=== PATIENT | female | born 1975 | race Caucasian/White ===

== ENCOUNTER → 2020-07-16 08:17 | Outpatient (BNVA) | payer OTHER, SELFPAY | PROVIDERS: PCP Internal Medicine; Referring Provider Internal Medicine; Visit Provider Dietitian, Registered | DX: Z76.89 Persons encountering health services in other specified circumstances (principal) ==

== ENCOUNTER → 2020-08-03 09:11 | Outpatient (BNVA) | payer OTHER, SELFPAY | PROVIDERS: PCP Internal Medicine; Visit Provider Dietitian, Registered | DX: Z76.89 Persons encountering health services in other specified circumstances (principal) ==

== ENCOUNTER → 2020-08-30 07:39 | Outpatient (BNVA) | payer OTHER, SELFPAY | PROVIDERS: Visit Provider Physician Assistant | DX: E66.01 Morbid (severe) obesity due to excess calories (principal); Z68.43 Body mass index [BMI] 50.0-59.9, adult | CPT/HCPCS: 99212 ==

== ENCOUNTER → 2020-09-29 08:11 | Outpatient (BNVA) | payer OTHER, SELFPAY | PROVIDERS: Visit Provider Dietitian, Registered | DX: Z76.89 Persons encountering health services in other specified circumstances (principal) ==

== ENCOUNTER → 2020-10-26 08:14 | Outpatient (BNVA) | payer OTHER, SELFPAY | PROVIDERS: Visit Provider Physician Assistant ==

== ENCOUNTER → 2023-03-30 13:41 | Outpatient (BNVA) | payer OTHER, SELFPAY | PROVIDERS: PCP Internal Medicine; Visit Provider Internal Medicine Endocrinology, Diabetes & Metabolism | DX: E11.65 Type 2 diabetes mellitus with hyperglycemia (principal); E11.40 Type 2 diabetes mellitus with diabetic neuropathy, unspecified; E78.5 Hyperlipidemia, unspecified; E66.01 Morbid (severe) obesity due to excess calories; Z83.3 Family history of diabetes mellitus; Z68.42 Body mass index [BMI] 45.0-49.9, adult; Z79.4 Long term (current) use of insulin; Z79.899 Other long term (current) drug therapy | CPT/HCPCS: 82947; 83036; 99202 ==

== ENCOUNTER 2023-04-30 13:41 | Outpatient (AMB) | payer OTHER, SELFPAY ==
--- NOTE | 2023-04-30 14:43 | A.OFFVIS_ITS ---
Intake Intake Visit Reasons: Type 2 DM Proration Clerk Required: Yes Proration Clerk Language: It Intern Name: Kayla [facility] [place] by: Self / Same As Patient Allergies dulaglutide [From Trulicity] Adverse Reaction (Unknown, Verified 03/30/23 13:53) Itching insulin lispro [From Humalog U-100 Insulin] Adverse Reaction (Unknown, Verified 03/30/23 13:53) Rash Aspirin Allergy (Unknown, Uncoded 03/30/23 13:53) swelling Latex Allergy (Unknown, Uncoded 03/30/23 13:53) rash Metformin Allergy (Unknown, Uncoded 03/30/23 13:53) stomach upset Penicillin Allergy (Unknown, Uncoded 03/30/23 13:53) swelling HPI Comprehensive Diabetes Asmnt Most Recent Diabetes Results: No Data to Display [facility] Medical History (Updated 03/30/23 @ 13:57 by Irvin Sanchez MD) Asthma History of deviated nasal septum Morbid obesity Neuropathy FLORENCIA (obstructive sleep apnea) Right sciatic nerve pain Type 2 diabetes mellitus Uncontrolled type 2 diabetes mellitus with hyperglycemia Surgical History Hx of section Family History Father Multiple sclerosis Mother Diabetes mellitus Sister Lupus Brother No problems noted. Daughter No problems noted. Social History Alcohol intake: never Assessment & Plan Assessment & Plan (1) Uncontrolled type 2 diabetes mellitus with hyperglycemia: Code(s): E11.65 - Type 2 diabetes mellitus with hyperglycemia Plan: Learning objectives: The patient was provided with verbal and written education on the following topics as outlined below. The patient met all learning objectives and was able to verbalize understanding and provide teach back of education topics discussed . The patient was provided with the opportunity to ask questions and all questions were answered. Patient Assessment Assess patient education level/literacy/barriers Patient questions/concerns, patient reports glucose has been running high but did not bring Dexcom screw machine operator single spindle for download. Her patient was on GameLogictronic 630 G insulin pump until visit with Dr. Sanchez. At that visit Dr. Sanchez stopped insulin pump in started patient on basal bolus insulin. Reviewed patient's pump download from visit with Dr. Sanchez. Patient using fixed dose for meals not Bolus wizard. Patient does not carb count. She is currently taking Lantus 30 units daily with NovoLog sliding scale She is also started on Ozempic 0.25 mg, patient complains of slight nausea and mild swelling in her right hand in foot. States that she will continue Ozempic if she has seen an improvement in glucose levels since starting medication. Instructed patient if she should develop swelling of hands or tongue and shortness of breath to contact provider or go to ED What is Diabetes? Pathophysiology How the body produces and uses insulin Identify type of DM Risk factors Signs of Diabetes Brief overview of Diabetes Management Monitoring blood sugar Following a meal plan Regular exercise Maintaining a healthy weight Taking medication as needed Members of the care team (PCP, RN, MA, RD, CDE, inverted block operator) Blood glucose monitoring When/how often to test Target blood sugar ranges Patient is using Dexcom G7 screw machine operator single spindle but did not bring to today's visit Introduction to Nutrition Importance of healthy diet in managing DM Diet is personalized to individual preference Review patient?s regular diet/food preferences Who prepares meals/does food shopping/ Dining out?/ Barriers? How diet effects glucose Eating 3 balanced meals a day with small, healthy snacks between meals Review food groups Carbohydrates: What is a carbohydrate/Which food/food groups are considered carbohydrates Effect of carbohydrates on blood glucose Portion sizes Reading food labels Basic carb counting (if applicable per nursing assessment) Plate method Meal planning Recommendations: Follow plate method, consistent carbs and read nutritional labels. Smart Goal: Extend dog walk from half a block to full 3 times a day Educational Materials: The patient was provided with the following written educational materials: Planning Healthy Meals Handout Patient Response to instructions: Comprehension of Instructions: Fair Readiness to make changes: Contemplation How confident they feel about making changes: fair Coding Level of Care Code Est Pt Level 1 (61319) Diagnoses Uncontrolled type 2 diabetes mellitus with hyperglycemia E11.65
== END 2023-04-30 15:02 | disposition home or self-care (01) ==
PROVIDERS: PCP Internal Medicine; Visit Provider Registered Nurse Diabetes Educator
DX: E11.65 Type 2 diabetes mellitus with hyperglycemia (principal)

== ENCOUNTER → 2023-04-30 13:41 | Outpatient (BNVA) | payer OTHER, SELFPAY | PROVIDERS: PCP Internal Medicine; Visit Provider Registered Nurse Diabetes Educator | DX: E11.65 Type 2 diabetes mellitus with hyperglycemia (principal); E11.40 Type 2 diabetes mellitus with diabetic neuropathy, unspecified | CPT/HCPCS: 99211 ==

== ENCOUNTER 2023-05-10 13:17 | Outpatient (AMB) | payer OTHER, SELFPAY ==
[2023-05-10 13:51] VITALS: BMI 48.0
--- NOTE | 2023-05-10 13:51 | A.OFFVIS_ITS ---
Intake VS Expanded 05/10/23 13:51 05/17/23 11:29 Height 5 ft 1.8 in 5 ft 2 in Weight 260 lb 9.382 oz 261 lb BMI 48.0 47.7 Intake Visit Reasons: Type 2 DM Allergies dulaglutide [From Trulicity] Adverse Reaction (Unknown, Verified 03/30/23 13:53) Itching insulin lispro [From Humalog U-100 Insulin] Adverse Reaction (Unknown, Verified 03/30/23 13:53) Rash Aspirin Allergy (Unknown, Uncoded 03/30/23 13:53) swelling Latex Allergy (Unknown, Uncoded 03/30/23 13:53) rash Metformin Allergy (Unknown, Uncoded 03/30/23 13:53) stomach upset Penicillin Allergy (Unknown, Uncoded 03/30/23 13:53) swelling HPI Nutrition Presentation Details Pt presents for MNT for T2DM. Pt was referred by Dr. Sanchez, metal building assembler. Pt reports having hx of anemia crystal light Pt reports having 3 meals a day and working on balancing meals following healthy plate method or having protein rich foods and reducing portion of carbohydrates. Reports challenges with portions at night time typical meal: B:4-5 oz of prot (eggs/cheese/deli meat) and 1 slice wheat or white bread, cup of almond milk or water L/D: rice/chicken /salad or beef/potato and green beans, water snack: cracker,/ rice/ , cereal/ pastries physical activity: daily life activities ETOH/SMoking: denies fruits/d: 0-2 vegetables: 3-4 servings starches > 15 prot: 10-12 oz/d dairy: 4 serving/d fried foods : 0-1/d pastries:daily fluids: water, almond milk, diet beverages: 45-60 oz/d PJH-Zispfze-Et.Jeor Equation Height 5 ft 2 in Weight 261 lb Resting Metabolic Rate 1774.70 Calculated Activity Level Sedentary Calories Needed to Maintain Weight 2129.64 Diagnosis Nutrition problem #1 inadequate energy intake As related to (etiology) #1 diagnosis As evidenced by (sign/symptom) #1 abnormal lab values ( A1c at 12.2% on 03/2023) and high BMI (48.0 bmi on 05/10/23) Monitoring/Goals Nutrition problem monitoring total energy intake, glucose, fasting, total CHO intake and weight Nutrition goal/outcome list 3 CHO foods and wt loss 5lbs in 2 months Learning/Education Readiness to learn good Stages of change preparation Educational materials provided Yes (meal planning ) Most Recent Diabetes Results: No Data to Display [facility] Medical History (Updated 03/30/23 @ 13:57 by Irvin Sanchez MD) Asthma History of deviated nasal septum Morbid obesity Neuropathy FLORENCIA (obstructive sleep apnea) Right sciatic nerve pain Type 2 diabetes mellitus Uncontrolled type 2 diabetes mellitus with hyperglycemia Surgical History Hx of section Family History Father Multiple sclerosis Mother Diabetes mellitus Sister Lupus Brother No problems noted. Daughter No problems noted. Social History Alcohol intake: never Assessment & Plan Assessment & Plan (1) Uncontrolled type 2 diabetes mellitus with hyperglycemia: Code(s): E11.65 - Type 2 diabetes mellitus with hyperglycemia Plan: wt: 119 kg Est kcal needs as per MSJ: 2100 (40% carb, 30% protein/fat) Est fluid needs as per 25-30 ml/d: 2800- 3600 Est prot per day as per 1 g/kg bw: 119 Recommend fiber intake : 8-10 g per day and gradually increase to 25-28 g per day for women and 35-38 g for men or as tolerated Recommend sodium intake per day : less than 2000 mg Educated patient on: ( R = reviewed V = verbalizes understanding N/R = needs review N/A = not applicable * Food sources of carbohydrate, adequate serving sizes and its role in various health conditions: R * Differences between complex carbohydrates a simple carbohydrates, role of fiber in diet: R * Differences between types of fats and role in diet (mono on saturated fat fatty acids, saturated fatty acids, trans fats): R * Food sources of sodium in salt and healthy modifications for heart health in kidney health: R * Vitamins and minerals: R * Healthy plate method concept: R * Physical activity: Benefits a precaution: R * Hypoglycemia protocol (rule of 15): R * Dietary prevention of Hyperglycemia: R (2) Morbid obesity: Code(s): E66.01 - Morbid (severe) obesity due to excess calories Patient Instructions: Practice mindful eating strategies Reduce calories as bedtime snack to less than 200 calories and less than 20 g of carbs- see snack choices Coding Level of Care Code Nutr Indiv Intake (00508) Diagnoses Uncontrolled type 2 diabetes mellitus with hyperglycemia E11.65 Morbid obesity E66.01 Time Spent (min) 30
[2023-05-17 11:29] VITALS: BMI 47.7
== END 2023-05-10 14:36 | disposition home or self-care (01) ==
PROVIDERS: PCP Internal Medicine; Visit Provider Dietitian, Registered
DX: E11.65 Type 2 diabetes mellitus with hyperglycemia (principal); E66.01 Morbid (severe) obesity due to excess calories

== ENCOUNTER → 2023-05-10 13:17 | Outpatient (BNVA) | payer OTHER, SELFPAY | PROVIDERS: PCP Internal Medicine; Visit Provider Dietitian, Registered | DX: E11.65 Type 2 diabetes mellitus with hyperglycemia (principal); E66.01 Morbid (severe) obesity due to excess calories; Z68.42 Body mass index [BMI] 45.0-49.9, adult; Z71.3 Dietary counseling and surveillance | CPT/HCPCS: 97802 ==

== ENCOUNTER 2023-05-25 14:26 | Outpatient (AMB) | payer OTHER, SELFPAY ==
[2023-05-25 14:28] VITALS: BP 114/72; PULSE 85; BMI 48.2
--- NOTE | 2023-05-25 14:28 | A.OFFVIS_ITS ---
Intake Vital Signs 05/25/23 14:28 Height 5 ft 2 in Weight 263 lb 7.238 oz BMI 48.2 BP 114/72 Blood Pressure Location Lt brachial Position Sitting Pulse 85 Pulse Source Pulse Oximeter Intake Visit Reasons: DM Intake Note: Patient presents today to follow up on Type 2 Diabetes Mellitus. Patient receives DME supplies through: Last Diabetic Eye exam: August 2022 Last Podiatry Visit: None Random Glucose: 260 mg/dl HgA1C: 12.2% 03/30/23 Surface Plate Inspector Required: Yes Surface Plate Inspector Language: Occupational Rehabilitation Aide Name: Kayla medical staff Information Interpreted: non-clinical & clinical Accompanied by: Self / Same As Patient Allergies dulaglutide [From Trulicity] Adverse Reaction (Unknown, Verified 05/25/23 14:34) Itching insulin lispro [From Humalog U-100 Insulin] Adverse Reaction (Unknown, Verified 05/25/23 14:34) Rash Aspirin Allergy (Unknown, Uncoded 03/30/23 13:53) swelling Latex Allergy (Unknown, Uncoded 03/30/23 13:53) rash Metformin Allergy (Unknown, Uncoded 03/30/23 13:53) stomach upset Penicillin Allergy (Unknown, Uncoded 03/30/23 13:53) swelling Medication List - Last Reconciled 05/25/23 by Irvin Sanchez MD atorvastatin 20 mg PO DAILY blood sugar diagnostic (Contour Next Test Strips) As directed blood-glucose meter (Contour Next Meter) As directed blood-glucose sensor (Dexcom G7 Sensor device) As directed change every 10 days ferrous sulfate (FeroSul) 325 mg PO DAILY gabapentin 600 mg PO BEDTIME insulin aspart U-100 (Novolog U-100 Insulin aspart) 1 sliding scale dose subcut USEASDIRECTD insulin aspart U-100 (Novolog FlexPen U-100 Insulin aspart) 10 units (0.1 mL) subcut TID insulin glargine (Lantus Solostar U-100 Insulin) 30 units (0.3 mL) subcut DAILY lisinopril 10 mg PO DAILY loratadine (Allergy Relief (loratadine)) 10 mg PO DAILY paroxetine HCl 30 mg PO DAILY pen needle, diabetic (Comfort EZ Pen [place]) As directed injects 4 X/day semaglutide (Ozempic) 0.5 mg (0.736 mL) subcut QWEEK HPI HPI Comments History of Present Illness Details 47 YO F who is seen in consultation for T2DM at the request of PCP. Initially diagnosed with T2DM in 17 yrs . Not seen endo before Was initially started on treatment with metformin .Stopped because of GI upset Current regimen Ozempic 0.5 mg Qwkly stopped because of hand and foot pain Lantus 30 units Novolog 10 units TID Dexcom download shows average glucose to be 330. This sensors be worn 50% of the time. Standing PA shins 47. Less than 1% range with 99% hyperglycemia and no hypoglycemia . Family history of T2DM in mother, grandfather Type 2 DM . Has eyes checked yearly, last eye exam 08/2022 , Has retinopathy. Has neuropathy, ], not sees podiatry. Denies nephropathy, on DEMETRIUS/ARB. . Has HLD, on statin. Denies CAD. Had diabetes education. [facility] Medical History (Updated 03/30/23 @ 13:57 by Irvin Sanchez MD) Asthma History of deviated nasal septum Morbid obesity Neuropathy FLORENCIA (obstructive sleep apnea) Right sciatic nerve pain Type 2 diabetes mellitus Uncontrolled type 2 diabetes mellitus with hyperglycemia Surgical History Hx of section Family History Father Multiple sclerosis Mother Diabetes mellitus Sister Lupus Brother No problems noted. Daughter No problems noted. Social History Alcohol intake: never Physical Exam Vital Signs: Last Vital Signs Pulse 85 05/25/23 14:28 BP 114/72 05/25/23 14:28 BMI result Body Mass Index 48.2 Absence of Cushingoid features. Presence of acromegalic features. Neck exam reveals nl size thyroid about 15 gms. No thyroid nodules palpable. No carotid bruits present. Lungs CTA. Heart S1 S2, Reg R/R. No M/R/ G. Skin exam reveals absence of vitiligo or acanthosis nigricans. Abdominal exam reveals Soft NT/ND with NA BS. No organomegaly present. Neck Other: . Extrem Other: Visual exam of foot performed. No ulcerations or open lesions. No onchomycosis, no callouses.Pulses 2 + distally Sensation intact to monofilament exam. 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 Plan is to increase Lantus to 40 units and by 10 units every 3 4 days to get fas ting point care <150. Will also start Mounjaro 2.5 mg Q weekly and titrate as tolerated. Patient has already been intolerable to Trulicity and Ozempic. l . Will check microalbumin to creatinine ratio. Went over with patient extensively the relationship poor glycemic control to development and progression of complications Mounjaro 2.5 mg samples given to patient lot number [id number] C expiration date 10/04/2024 Coding Level of Care Code Est Pt Level 4 (55581) Diagnoses Uncontrolled type 2 diabetes mellitus with hyperglycemia E11.65
[2023-05-25 14:43] LABS: Glucose, Whole Blood 260 mg/dL (60-115)
== END 2023-05-25 16:09 | disposition home or self-care (01) ==
PROVIDERS: PCP Internal Medicine; Visit Provider Internal Medicine Endocrinology, Diabetes & Metabolism
DX: E11.65 Type 2 diabetes mellitus with hyperglycemia (principal)
CPT/HCPCS: 99214

== ENCOUNTER → 2023-05-25 14:26 | Outpatient (BNVA) | payer OTHER, SELFPAY | PROVIDERS: PCP Internal Medicine; Visit Provider Internal Medicine Endocrinology, Diabetes & Metabolism | DX: E11.65 Type 2 diabetes mellitus with hyperglycemia (principal); E78.5 Hyperlipidemia, unspecified; Z83.3 Family history of diabetes mellitus; Z79.4 Long term (current) use of insulin; Z79.899 Other long term (current) drug therapy | CPT/HCPCS: 82947; 99212 ==

== ENCOUNTER → 2023-05-31 12:07 | Outpatient (BNVA) | payer OTHER, SELFPAY | PROVIDERS: PCP Internal Medicine; Visit Provider Registered Nurse Diabetes Educator | DX: E11.65 Type 2 diabetes mellitus with hyperglycemia (principal); Z79.4 Long term (current) use of insulin | CPT/HCPCS: 99211 ==

== ENCOUNTER 2023-05-31 13:17 | Outpatient (AMB) | payer OTHER, SELFPAY ==
--- NOTE | 2023-05-31 13:56 | MHC.AMDMED ---
Intake Intake Visit Reasons: DM Allergies dulaglutide [From Trulicity] Adverse Reaction (Unknown, Verified 05/25/23 14:34) Itching insulin lispro [From Humalog U-100 Insulin] Adverse Reaction (Unknown, Verified 05/25/23 14:34) Rash Aspirin Allergy (Unknown, Uncoded 03/30/23 13:53) swelling Latex Allergy (Unknown, Uncoded 03/30/23 13:53) rash Metformin Allergy (Unknown, Uncoded 03/30/23 13:53) stomach upset Penicillin Allergy (Unknown, Uncoded 03/30/23 13:53) swelling HPI Comprehensive Diabetes Asmnt Most Recent Diabetes Results: No Data to Display [facility] Medical History (Updated 03/30/23 @ 13:57 by Irvin Sanchez MD) Asthma History of deviated nasal septum Morbid obesity Neuropathy FLORENCIA (obstructive sleep apnea) Right sciatic nerve pain Type 2 diabetes mellitus Uncontrolled type 2 diabetes mellitus with hyperglycemia Surgical History Hx of section Family History Father Multiple sclerosis Mother Diabetes mellitus Sister Lupus Brother No problems noted. Daughter No problems noted. Social History Alcohol intake: never Assessment & Plan Assessment & Plan (1) Uncontrolled type 2 diabetes mellitus with hyperglycemia: Code(s): E11.65 - Type 2 diabetes mellitus with hyperglycemia Plan: Personal Continuous Glucose Monitor: Patients CGM information reviewed Reviewed patient's sensor data: Hypoglycemia: ? 0% Hyperglycemia:? 93% Time in Range:? 7% Average glucose for the last 2 weeks? 266 mg/dL Patient has transitioned from 630 G insulin pump to basal bolus and Mounhaoro Patient's glucose levels have been running above target for the past [address] Sanchez increase in Lantus to match basal rate from 670 G insulin pump of [address] Sanchez agreed to increase Lantus to 50 units daily He patient is also interested in resuming insulin pump therapy. At next visit will discuss different insulin pump options integrated with CGM Reviewed how to interpret trend arrows Reminded patient that to check finger sticks if symptoms do not match sensor reading. Discussed lag time between finger stick and sensor data.? Patient able to insert sensor independently at home without issue.? Medications: New semaglutide 1 mg (0.75 mL) subcut QWEEK 3 mL 4RF Changed From insulin aspart U-100 (Novolog FlexPen U-100 Insulin aspart) 10 units (0.1 mL) subcut TID 30 mL 5RF To insulin aspart U-100 (Novolog FlexPen U-100 Insulin aspart) 50 units (0.5 mL) subcut DAILY 45 mL 5RF Discontinued semaglutide (Ozempic) for 4 weeks Discontinued Reason: Doctor's Order 0.5 mg (0.736 mL) subcut QWEEK 3 mL 5RF Patient Instructions: Seg?n el Dr. Sanchez Aumente Lantus 30 unidades a Lantus 50 unidades Seguimiento con enfermera de educaci?n sobre diabetes en un mes. Coding Level of Care Code Est Pt Level 1 (96849) Diagnoses Uncontrolled type 2 diabetes mellitus with hyperglycemia E11.65
== END 2023-05-31 14:01 | disposition home or self-care (01) ==
PROVIDERS: PCP Internal Medicine; Visit Provider Registered Nurse Diabetes Educator
DX: E11.65 Type 2 diabetes mellitus with hyperglycemia (principal)

== ENCOUNTER 2023-06-19 13:43 | Outpatient (AMB) | payer OTHER, SELFPAY ==
[2023-06-19 14:23] VITALS: BMI 48.2
--- NOTE | 2023-06-19 14:23 | A.OFFVIS_ITS ---
Intake VS Expanded 06/19/23 14:23 Height 5 ft 2 in Weight 263 lb 7.238 oz BMI 48.2 Intake Visit Reasons: t2dm/Confirmed Allergies dulaglutide [From Trulicity] Adverse Reaction (Unknown, Verified 05/25/23 14:34) Itching insulin lispro [From Humalog U-100 Insulin] Adverse Reaction (Unknown, Verified 05/25/23 14:34) Rash Aspirin Allergy (Unknown, Uncoded 03/30/23 13:53) swelling Latex Allergy (Unknown, Uncoded 03/30/23 13:53) rash Metformin Allergy (Unknown, Uncoded 03/30/23 13:53) stomach upset Penicillin Allergy (Unknown, Uncoded 03/30/23 13:53) swelling HPI Nutrition Presentation Details Pt presents for MNT f/u for T2DM Pt reports understanding relationship of carbs to blood glucose level Pt complains of lack of satiety, reports choosing higher fat foods to help with satiety,n ot counting carbohydrates Pt is working with dredge hand and community nutrition educator for DM med management. physical activity:sedentary ETOH: denies reading food labels: looking at protein only Most Recent Diabetes Results: No Data to Display [facility] Medical History (Updated 03/30/23 @ 13:57 by Irvin Sanchez MD) Uncontrolled type 2 diabetes mellitus with hyperglycemia Neuropathy Right sciatic nerve pain FLORENCIA (obstructive sleep apnea) Asthma Type 2 diabetes mellitus Morbid obesity History of deviated nasal septum Surgical History Hx of section Family History Father Multiple sclerosis Mother Diabetes mellitus Sister Lupus Brother No problems noted. Daughter No problems noted. Social History Alcohol intake: never Assessment & Plan Assessment & Plan (1) Uncontrolled type 2 diabetes mellitus with hyperglycemia: Code(s): E11.65 - Type 2 diabetes mellitus with hyperglycemia Plan: wt: 119 kg Est kcal needs as per MSJ: 2100 (40% carb, 30% protein/fat) Est fluid needs as per 25-30 ml/d: 2800- 3600 Est prot per day as per 1 g/kg bw: 119 Recommend fiber intake : 8-10 g per day and gradually increase to 25-28 g per day for women and 35-38 g for men or as tolerated Recommend sodium intake per day : less than 2000 mg Educated patient on: ( R = reviewed V = verbalizes understanding N/R = needs review N/A = not applicable * Food sources of carbohydrate, adequate serving sizes and its role in various health conditions: R * Differences between complex carbohydrates a simple carbohydrates, role of fiber in diet: R * Differences between types of fats and role in diet (mono on saturated fat fatty acids, saturated fatty acids, trans fats): R * Food sources of sodium in salt and healthy modifications for heart health in kidney health: R * Reading food labels: R (compare calories, protein, carbs) * Vitamins and minerals: R * Healthy plate method concept: R * Physical activity: Benefits a precaution: R * Hypoglycemia protocol (rule of 15): R * Dietary prevention of Hyperglycemia: R (2) Morbid obesity: Code(s): E66.01 - Morbid (severe) obesity due to excess calories Patient Instructions: Keep hydrated by having water, with meals, snacks, try hint water ,see list of ideas to flavor water without adding calories Reduce on portion sizes of high fat foods , high fat intake can lead to insulin resistance Include fiber rich foods to help with satiety incorporate physical activity 10 minutes 3 times a day Coding Level of Care Code Nutr Indiv Subseq (63521) Diagnoses Uncontrolled type 2 diabetes mellitus with hyperglycemia E11.65 Morbid obesity E66.01 Time Spent (min) 30
== END 2023-06-19 15:02 | disposition home or self-care (01) ==
PROVIDERS: PCP Internal Medicine; Visit Provider Dietitian, Registered
DX: E11.65 Type 2 diabetes mellitus with hyperglycemia (principal); E66.01 Morbid (severe) obesity due to excess calories

== ENCOUNTER → 2023-06-19 13:43 | Outpatient (BNVA) | payer OTHER, SELFPAY | PROVIDERS: PCP Internal Medicine; Visit Provider Dietitian, Registered | DX: E11.65 Type 2 diabetes mellitus with hyperglycemia (principal); E11.42 Type 2 diabetes mellitus with diabetic polyneuropathy; E66.01 Morbid (severe) obesity due to excess calories; Z68.42 Body mass index [BMI] 45.0-49.9, adult; Z71.3 Dietary counseling and surveillance | CPT/HCPCS: 97803 ==

== ENCOUNTER 2023-06-27 14:27 | Outpatient (AMB) | payer OTHER, SELFPAY ==
[2023-06-27 14:31] VITALS: BP 102/58; PULSE 83; BMI 48.4
--- NOTE | 2023-06-27 14:31 | MHC.OFFVIS ---
Intake Vital Signs 06/27/23 14:31 Height 5 ft 2 in Weight 264 lb 12.403 oz BMI 48.4 BP 102/58 L Blood Pressure Location Lt brachial Position Sitting Pulse 83 Pulse Source Pulse Oximeter Intake Visit Reasons: f/u Type 2 DM/Confirmed Intake Note: Patient presents today to follow up on Type 2 Diabetes Mellitus. Patient receives DME supplies through: Last Diabetic Eye exam: 08/2023 Last Podiatry Visit: none Random Glucose: 197 mg/dl HgA1C:9.3% Skoog Patching Machine Operator Required: Yes Skoog Patching Machine Operator Language: Victorian Literature Professor Name: Kayla- medical staff Information Interpreted: non-clinical & clinical Accompanied by: Self / Same As Patient Allergies dulaglutide [From Trulicity] Adverse Reaction (Unknown, Verified 06/27/23 14:38) Itching insulin lispro [From Humalog U-100 Insulin] Adverse Reaction (Unknown, Verified 06/27/23 14:38) Rash Aspirin Allergy (Unknown, Uncoded 03/30/23 13:53) swelling Latex Allergy (Unknown, Uncoded 03/30/23 13:53) rash Metformin Allergy (Unknown, Uncoded 03/30/23 13:53) stomach upset Penicillin Allergy (Unknown, Uncoded 03/30/23 13:53) swelling Medication List - Last Reconciled 06/27/23 by Irvin Sanchez MD atorvastatin 20 mg PO DAILY blood sugar diagnostic (Contour Next Test Strips) As directed blood-glucose meter (Contour Next Meter) As directed blood-glucose sensor (Dexcom G7 Sensor device) As directed change every 10 days ferrous sulfate (FeroSul) 325 mg PO DAILY gabapentin 600 mg PO BEDTIME insulin aspart U-100 (Novolog FlexPen U-100 Insulin aspart) 50 units (0.5 mL) subcut DAILY Lantus Solostar U-100 Insulin (insulin glargine) 50 units (0.5 mL) subcut DAILY NS lisinopril 10 mg PO DAILY loratadine (Allergy Relief (loratadine)) 10 mg PO DAILY paroxetine HCl 30 mg PO DAILY pen needle, diabetic (Comfort EZ Pen [place]) As directed injects 4 X/day tirzepatide (Mounjaro) 2.5 mg (0.5 mL) subcut QWEEK 4 weeks HPI HPI Comments History of Present Illness Details 48 YO F who is seen in consultation for T2DM at the request of PCP. Initially diagnosed with T2DM in 17 yrs . Not seen endo before Was initially started on treatment with metformin .Stopped because of GI upset Current regimen Mounjaro 2.5 mg Qwkly Lantus 50 units Novolog 10 units TID Dexcom download shows average glucose to be 225. This sensors be worn 86% of the time. Standard deviation 42. Less than 16% range with 84% hyperglycemia and no hypoglycemia . Rare hypoglycemia Family history of T2DM in mother, grandfather Type 2 DM . Has eyes checked yearly, last eye exam 08/2022 , Has retinopathy. Needs to make appt Has neuropathy, ], not sees podiatry. Denies nephropathy, on DEMETRIUS/ARB. . Has HLD, on statin. Denies CAD. Had diabetes education. [facility] Medical History (Updated 03/30/23 @ 13:57 by Irvin Sanchez MD) Uncontrolled type 2 diabetes mellitus with hyperglycemia Neuropathy Right sciatic nerve pain FLORENCIA (obstructive sleep apnea) Asthma Type 2 diabetes mellitus Morbid obesity History of deviated nasal septum Surgical History Hx of section Family History Father Multiple sclerosis Mother Diabetes mellitus Sister Lupus Brother No problems noted. Daughter No problems noted. Social History Alcohol intake: never Physical Exam Vital Signs: Last Vital Signs Pulse 83 06/27/23 14:31 BP 102/58 L 06/27/23 14:31 BMI result Body Mass Index 48.4 Absence of Cushingoid features. Presence of acromegalic features. Neck exam reveals nl size thyroid about 15 gms. No thyroid nodules palpable. No carotid bruits present. Lungs CTA. Heart S1 S2, Reg R/R. No M/R/ G. Skin exam reveals absence of vitiligo or acanthosis nigricans. Abdominal exam reveals Soft NT/ND with NA BS. No organomegaly present. Neck Other: . Extrem Other: Visual exam of foot performed. No ulcerations or open lesions. No onchomycosis, no callouses.Pulses 2 + distally Sensation intact to monofilament exam. Vibratory sensation sensed is intact with 128 Hz tuning fork Results AMB Hemoglobin A1c AMB Hemoglobin A1c 9.3 % Last Edit by Janey Key on 06/27/23 14:51 Results Reviewed Results Reviewed: 06/27/23 14:41 Glucose, Whole Blood Routine Laboratory Last Values Glucose (Clinic) 197 mg/dL (60-115) H 06/27/23 14:41 Hgb A1c (Clinic) 9.3 % (4.0-6.0) H 06/27/23 14:45 Assessment & Plan Assessment & Plan (1) Uncontrolled type 2 diabetes mellitus with hyperglycemia: Code(s): E11.65 - Type 2 diabetes mellitus with hyperglycemia Plan: This 47-year-old female with a history of type 2 diabetes being treated with Mounjaro and basalinsulin with poor glycemic control and 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 Plan is to ncrease Mounjaro 5 mg Q weekly and titrate as tolerated. . Will check microalbumin to creatinine ratio. . Will also start Jardiance 10 mg and titrate accordingly. Went over side effects with the help of supervisor beet end of Jardiance including but not limited to Raquel's gangrene , dehydration and DKA. If glycemic control as not to after above, we need to increase basal insulin Orders: Orders AMB Hemoglobin A1c Today E11.65 - Type 2 diabetes mellitus with hyperglycemia Basic Metabolic Panel 10 Days E11.65 - Type 2 diabetes mellitus with hyperglycemia Medications: New tirzepatide (Mounjaro) 5 mg (0.5 mL) subcut QWEEK 2 mL 5RF empagliflozin (Jardiance) 25 mg PO DAILY 30 tabs 5RF Discontinued tirzepatide (Mounjaro) Discontinued Reason: Doctor's Order 2.5 mg (0.5 mL) subcut QWEEK 4 weeks 2 mL 0RF Coding Level of Care Code Est Pt Level 4 (62273) Diagnoses Uncontrolled type 2 diabetes mellitus with hyperglycemia E11.65
[2023-06-27 14:46] LABS: Glucose, Whole Blood 197 mg/dL (60-115)
== END 2023-06-27 15:44 | disposition home or self-care (01) ==
PROVIDERS: PCP Internal Medicine; Visit Provider Internal Medicine Endocrinology, Diabetes & Metabolism
DX: E11.65 Type 2 diabetes mellitus with hyperglycemia (principal)
CPT/HCPCS: 99214

== ENCOUNTER → 2023-06-27 14:27 | Outpatient (BNVA) | payer OTHER, SELFPAY | PROVIDERS: PCP Internal Medicine; Visit Provider Internal Medicine Endocrinology, Diabetes & Metabolism | DX: E11.65 Type 2 diabetes mellitus with hyperglycemia (principal) | CPT/HCPCS: 82947; 83036; 99212 ==

== ENCOUNTER 2023-07-10 12:19 | Outpatient (REF) | payer OTHER, SELFPAY | END 2023-07-10 12:20 | disposition home or self-care (01) | LOC: HO.LAB 12:19 | PROVIDERS: Visit Provider Internal Medicine Endocrinology, Diabetes & Metabolism | DX: E11.65 Type 2 diabetes mellitus with hyperglycemia (principal) | CPT/HCPCS: 36415; 80048 ==

== ENCOUNTER 2023-07-31 13:03 | Outpatient (AMB) | payer OTHER, SELFPAY ==
--- NOTE | 2023-07-31 13:48 | MHC.AMDMED ---
Intake Intake Visit Reasons: DM Sport Shoe Spike Assembler Required: Yes Sport Shoe Spike Assembler Language: Bottoming Machine Operator Name: Anabella Hernandez Information Interpreted: non-clinical & clinical Allergies dulaglutide [From Trulicity] Adverse Reaction (Unknown, Verified 06/27/23 14:38) Itching insulin lispro [From Humalog U-100 Insulin] Adverse Reaction (Unknown, Verified 06/27/23 14:38) Rash Aspirin Allergy (Unknown, Uncoded 03/30/23 13:53) swelling Latex Allergy (Unknown, Uncoded 03/30/23 13:53) rash Metformin Allergy (Unknown, Uncoded 03/30/23 13:53) stomach upset Penicillin Allergy (Unknown, Uncoded 03/30/23 13:53) swelling HPI Comprehensive Diabetes Asmnt Most Recent Diabetes Results: Hemoglobin A1c 7.4 % 11/13/19 Cholesterol 138 MG/DL 11/13/19 HDL Cholesterol 33 MG/DL 11/13/19 Triglycerides 156 MG/DL 11/13/19 Creatinine 0.67 mg/dL (0.5-1.4) 07/10/23 Blood Urea Nitrogen 14 mg/dL (9-16) 07/10/23 Sodium 135 mmol/L (135-145) 07/10/23 Potassium 4.2 mmol/L (3.3-5.1) 07/10/23 Chloride 106 mmol/L (96-108) 07/10/23 Carbon Dioxide 20 mmol/L (22-29) L 07/10/23 Calcium 9.5 mg/dL (8.4-10.2) 07/10/23 AST 17 U/L (5-31) 11/13/19 ALT 13 U/L (0-31) 11/13/19 Total Protein 8.0 G/DL (6.5-8.0) 11/13/19 Albumin 4.2 G/DL (3.5-5.0) 11/13/19 [facility] Medical History (Updated 03/30/23 @ 13:57 by Irvin Sanchez MD) Uncontrolled type 2 diabetes mellitus with hyperglycemia Neuropathy Right sciatic nerve pain FLORENCIA (obstructive sleep apnea) Asthma Type 2 diabetes mellitus Morbid obesity History of deviated nasal septum Surgical History Hx of section Family History Father Multiple sclerosis Mother Diabetes mellitus Sister Lupus Brother No problems noted. Daughter No problems noted. Social History Alcohol intake: never Assessment & Plan Assessment & Plan (1) Uncontrolled type 2 diabetes mellitus with hyperglycemia: Code(s): E11.65 - Type 2 diabetes mellitus with hyperglycemia Plan: Pump Assessment: Type of DM: Type 2 Previous DKA: None Current Insulin Rx: MDI Patient takes insulin as prescribed: Yes Patient? checks BG Dexcom G7 Downloaded meter today? Yes Patient? reports glycemic control as: Good Most recent Hgb A1C: 9.3% Frequency of low BG: Rarely Low BG treatment: Fruit juice Frequency of high B to 2 times a week Has pt been on a pump in the past? Yes Medtronic 630 G Patient's A1c has improved from greater than 12% in March of 2023 10 9.3% in June 2023. Currently patient is using Dexcom G7 Average glucose the past 2 weeks 103 mg/dL Patient is above target 8% Patient is at target 92% Patient below target 0% Discussed with patient that her glucose level has improved significantly since last using insulin pump. She is currently using MDI with men sure 02.5 mg. Recommended to patient she continue current diabetes medication plan. Patient is adamant about resuming insulin pump therapy. Patient also reports that she has sensitivity to adhesive on Dexcom G7, reports she uses some type of wipe but does not know the name to reduce sensitivity. Recommended to patient she try using Flonase nasal spray underneath sensor adhesive to see if that improves skin sensitivity. Reviewed insulin pump basics today with Patient. Explained pros and cons of insulin pumps. Showed pt various pumps, infusion sets, and cgms currently available. Reviewed need to wear pump 24/7 and need to change infusion set every 3 days. Also stressed importance of frequent BG checks, 4x daily minimum or use pump that is integrated with CGM.? Patient demonstrated motivation for continued insulin pump education and understands the need to complete education prior to starting insulin pump for best outcome. Will follow up for continued education. Next visit will include review of Advanced Carb Counting. Patient has appointment with registered dietitian on 08/01/2023. Recommended the patient discuss learning carb counting skills at that visit Coding Level of Care Code Est Pt Level 1 (13041) Diagnoses Uncontrolled type 2 diabetes mellitus with hyperglycemia E11.65
== END 2023-07-31 13:55 | disposition home or self-care (01) ==
LOC: HO.ENCR 13:03
PROVIDERS: PCP Internal Medicine; Visit Provider Registered Nurse Diabetes Educator
DX: E11.65 Type 2 diabetes mellitus with hyperglycemia (principal)

== ENCOUNTER → 2023-07-31 13:03 | Outpatient (BNVA) | payer OTHER, SELFPAY | PROVIDERS: PCP Internal Medicine; Visit Provider Registered Nurse Diabetes Educator | DX: E11.65 Type 2 diabetes mellitus with hyperglycemia (principal) | CPT/HCPCS: 99211 ==

== ENCOUNTER 2023-08-21 11:28 | Outpatient (AMB) | payer OTHER, SELFPAY ==
[2023-08-21 11:33] VITALS: BMI 47.3
--- NOTE | 2023-08-21 11:33 | A.OFFVIS_ITS ---
Intake VS Expanded 08/21/23 11:33 08/27/23 19:24 Height 5 ft 2 in 5 ft 2 in Weight 258 lb 6.108 oz 258 lb BMI 47.3 47.2 Intake Visit Reasons: T2DM Allergies dulaglutide [From Trulicity] Adverse Reaction (Unknown, Verified 06/27/23 14:38) Itching insulin lispro [From Humalog U-100 Insulin] Adverse Reaction (Unknown, Verified 06/27/23 14:38) Rash Aspirin Allergy (Unknown, Uncoded 03/30/23 13:53) swelling Latex Allergy (Unknown, Uncoded 03/30/23 13:53) rash Metformin Allergy (Unknown, Uncoded 03/30/23 13:53) stomach upset Penicillin Allergy (Unknown, Uncoded 03/30/23 13:53) swelling HPI Nutrition Presentation Details Pt presents for MNT f/u for T2DM and morbid obesity Pt reports working on small diet modifications, to promote weight loss Pt verbalizes having no interest in counting g of carbs, wants to work on small diet modifications and reduction pt reports having 5-6 small meals per day , incorporating protein source of foods. Reports consuming 24 oz of fluids/day (water mostly food frequency proteins foods: 40-50 g protein (eggs/dry meats/poultry) vegetables: 2-3 cup servings/d dairy: 2-3 servings (milk/yogurt/cheese physical activity: sedentary CWF-Zcbhjji-Eb.Jeor Equation Height 5 ft 2 in Weight 258 lb Resting Metabolic Rate 1761.11 Calculated Activity Level Sedentary Calories Needed to Maintain Weight 2113.33 Most Recent Diabetes Results: Creatinine 0.67 mg/dL (0.5-1.4) 07/10/23 Blood Urea Nitrogen 14 mg/dL (9-16) 07/10/23 Sodium 135 mmol/L (135-145) 07/10/23 Potassium 4.2 mmol/L (3.3-5.1) 07/10/23 Chloride 106 mmol/L (96-108) 07/10/23 Carbon Dioxide 20 mmol/L (22-29) L 07/10/23 Calcium 9.5 mg/dL (8.4-10.2) 07/10/23 [facility] Medical History (Updated 03/30/23 @ 13:57 by Irvin Sanchez MD) Uncontrolled type 2 diabetes mellitus with hyperglycemia Neuropathy Right sciatic nerve pain FLORENCIA (obstructive sleep apnea) Asthma Type 2 diabetes mellitus Morbid obesity History of deviated nasal septum Surgical History Hx of section Family History Father Multiple sclerosis Mother Diabetes mellitus Sister Lupus Brother No problems noted. Daughter No problems noted. Alcohol intake: never Assessment & Plan Assessment & Plan (1) Uncontrolled type 2 diabetes mellitus with hyperglycemia: Code(s): E11.65 - Type 2 diabetes mellitus with hyperglycemia Plan: wt: 119 kg (07/2023), 117kg (08/2023) Est kcal needs as per MSJ: 2100 (40% carb, 30% protein/fat) Est fluid needs as per 25-30 ml/d: 3518 Est prot per day as per 1 g/kg bw: 119 Recommend fiber intake : 8-10 g per day and gradually increase to 25-28 g per day for women and 35-38 g for men or as tolerated Recommend sodium intake per day : less than 2000 mg Educated patient on: ( R = reviewed V = verbalizes understanding N/R = needs review N/A = not applicable * Food sources of carbohydrate, adequate serving sizes and its role in various health conditions: R * Differences between complex carbohydrates a simple carbohydrates, role of fiber in diet: R * Differences between types of fats and role in diet (mono on saturated fat fatty acids, saturated fatty acids, trans fats): R * Food sources of sodium in salt and healthy modifications for heart health in kidney health: R * Reading food labels: R (compare calories, protein, carbs) * Vitamins and minerals: R * Healthy plate method concept: R * Physical activity: Benefits a precaution: R * Hypoglycemia protocol (rule of 15): R * Dietary prevention of Hyperglycemia: R (2) Morbid obesity: Code(s): E66.01 - Morbid (severe) obesity due to excess calories Patient Instructions: Engage in physical activity, goal more than 30 minutes or as tolerated, 4 times a week Try one new food and combine with foods familiar to you : example add spinach to strawberry/lettuce/cabbage salad Coding Level of Care Code Nutr Indiv Subseq (93114) Diagnoses Uncontrolled type 2 diabetes mellitus with hyperglycemia E11.65 Morbid obesity E66.01 Time Spent (min) 30
[2023-08-27 19:24] VITALS: BMI 47.2
== END 2023-08-21 12:08 | disposition home or self-care (01) ==
PROVIDERS: PCP Internal Medicine; Visit Provider Dietitian, Registered
DX: E11.65 Type 2 diabetes mellitus with hyperglycemia (principal); E66.01 Morbid (severe) obesity due to excess calories

== ENCOUNTER → 2023-08-21 11:28 | Outpatient (BNVA) | payer OTHER, SELFPAY | PROVIDERS: PCP Internal Medicine; Visit Provider Dietitian, Registered | DX: E11.65 Type 2 diabetes mellitus with hyperglycemia (principal); E11.40 Type 2 diabetes mellitus with diabetic neuropathy, unspecified; E66.01 Morbid (severe) obesity due to excess calories; Z68.42 Body mass index [BMI] 45.0-49.9, adult; Z71.3 Dietary counseling and surveillance | CPT/HCPCS: 97803 ==

== ENCOUNTER 2023-09-03 12:26 | Outpatient (REF) | payer OTHER, SELFPAY ==
[2023-09-03 14:30] LABS: Creatinine Urine 63.38 mg/dL; Microalbum/Creatinine Ratio Ur 59.9 ug/mg cr (<30)
== END 2023-09-03 12:27 | disposition home or self-care (01) ==
LOC: HO.LAB 12:26
PROVIDERS: PCP Internal Medicine; Visit Provider Internal Medicine Endocrinology, Diabetes & Metabolism
DX: E11.65 Type 2 diabetes mellitus with hyperglycemia (principal)
CPT/HCPCS: 82043; 82570

== ENCOUNTER 2023-09-12 12:41 | Outpatient (AMB) | payer OTHER, SELFPAY ==
[2023-09-12 12:50] VITALS: BP 100/67; PULSE 69; BMI 47.2
--- NOTE | 2023-09-12 12:50 | A.OFFVIS_ITS ---
Intake Vital Signs 09/12/23 12:50 Height 5 ft 2 in Weight 258 lb 2.581 oz BMI 47.2 BP 100/67 Blood Pressure Location Lt brachial Position Sitting Pulse 69 Pulse Source Pulse Oximeter Intake Visit Reasons: DM-CONFIRMED Intake Note: Patient presents today to follow up on DMT2. Last Diabetic Eye exam: 08/2022 Last Podiatry Visit: None Random Glucose: 131 mg/dl HgA1C: 6.5% Outpatient Surgery Rn Required: Yes Outpatient Surgery Rn Language: Vice President Lending Name: Paz medical staff Information Interpreted: non-clinical & clinical Accompanied by: Self / Same As Patient Allergies dulaglutide [From Trulicity] Adverse Reaction (Unknown, Verified 09/12/23 12:56) Itching insulin lispro [From Humalog U-100 Insulin] Adverse Reaction (Unknown, Verified 09/12/23 12:56) Rash Aspirin Allergy (Unknown, Uncoded 03/30/23 13:53) swelling Latex Allergy (Unknown, Uncoded 03/30/23 13:53) rash Metformin Allergy (Unknown, Uncoded 03/30/23 13:53) stomach upset Penicillin Allergy (Unknown, Uncoded 03/30/23 13:53) swelling HPI HPI Comments History of Present Illness Details 48 YO F who is seen in consultation for T2DM at the request of PCP. Initially diagnosed with T2DM in 16 yrs . Not seen endo before Was initially started on treatment with metformin .Stopped because of GI upset Current regimen Mounjaro 2.5 mg Qwkly jardiance 25 mg QD Lantus 50 units Novolog 10 units TID sliding scal with max of 10 units Dexcom download shows average glucose to be 153 with standard deviation of 40 per 77% range with 22% hyperglycemia and no hypoglycemia. This sensors be worn 86% of the time. . Rare hypoglycemia Family history of T2DM in mother, grandfather Type 2 DM . Has eyes checked yearly, last eye exam 08/2022 , Has retinopathy. Needs to make appt Has neuropathy, ], not sees podiatry. Denies nephropathy, on DEMETRIUS/ARB. . Has HLD, on statin. Denies CAD. Had diabetes education. [facility] Medical History (Updated 03/30/23 @ 13:57 by Irvin Sanchez MD) Uncontrolled type 2 diabetes mellitus with hyperglycemia Neuropathy Right sciatic nerve pain FLORENCIA (obstructive sleep apnea) Asthma Type 2 diabetes mellitus Morbid obesity History of deviated nasal septum Surgical History Hx of section Family History Father Multiple sclerosis Mother Diabetes mellitus Sister Lupus Brother No problems noted. Daughter No problems noted. Social History Alcohol intake: never Physical Exam Vital Signs: Last Vital Signs Pulse 69 09/12/23 12:50 BP 100/67 09/12/23 12:50 BMI result Body Mass Index 47.2 Absence of Cushingoid features. Presence of acromegalic features. Neck exam reveals nl size thyroid about 15 gms. No thyroid nodules palpable. No carotid bruits present. Lungs CTA. Heart S1 S2, Reg R/R. No M/R/ G. Skin exam reveals absence of vitiligo or acanthosis nigricans. Abdominal exam reveals Soft NT/ND with NA BS. No organomegaly present. Neck Other: . Extrem Other: Visual exam of foot performed. No ulcerations or open lesions. No onchomycosis, no callouses.Pulses 2 + distally Sensation intact to monofilament exam. Vibratory sensation sensed is intact with 128 Hz tuning fork Results Reviewed Results Reviewed: Laboratory Last Values Glucose (Clinic) 131 mg/dL (60-115) H 09/12/23 12:58 Assessment & Plan Assessment & Plan (1) Uncontrolled type 2 diabetes mellitus with hyperglycemia: Code(s): E11.65 - Type 2 diabetes mellitus with hyperglycemia Plan: This 47-year-old female with a history of type 2 diabetes being treated with Mounjaro, Jardiance and basalinsulin with improved excellent glycemic control and 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 Plan is to increase the Mounjaro to 5 mg Qwkly. At this point, patient to follow-up with her primary care provider and return back to endocrinology should her HbA1c deteriorate . Medications: New tirzepatide (Mounjaro) 5 mg (0.5 mL) subcut QWEEK 2 mL 4RF Discontinued tirzepatide (Mounjaro) Discontinued Reason: Doctor's Order 2.5 mg (0.5 mL) subcut QWEEK 2 mL 1RF Coding Level of Care Code Est Pt Level 4 (44157) Diagnoses Uncontrolled type 2 diabetes mellitus with hyperglycemia E11.65
[2023-09-12 13:02] LABS: Glucose, Whole Blood 131 mg/dL (60-115)
== END 2023-09-12 13:17 | disposition home or self-care (01) ==
PROVIDERS: PCP Internal Medicine; Visit Provider Internal Medicine Endocrinology, Diabetes & Metabolism
DX: E11.65 Type 2 diabetes mellitus with hyperglycemia (principal)
CPT/HCPCS: 99214

== ENCOUNTER → 2023-09-12 12:41 | Outpatient (BNVA) | payer OTHER, SELFPAY | PROVIDERS: PCP Internal Medicine; Visit Provider Internal Medicine Endocrinology, Diabetes & Metabolism | DX: E11.65 Type 2 diabetes mellitus with hyperglycemia (principal) | CPT/HCPCS: 82947; 83036; 99212 ==

== ENCOUNTER 2024-01-23 15:07 | Outpatient (AMB) | payer OTHER, SELFPAY ==
--- NOTE | 2024-01-23 15:35 | MHC.AMDMED ---
Intake Intake Visit Reasons: DM-CONFIRMED Nail Machine Operator Required: Yes Nail Machine Operator Language: Supervisory Geographer Name: Jordana [facility] Information Interpreted: non-clinical & clinical Accompanied by: Self / Same As Patient Allergies dulaglutide [From Trulicity] Adverse Reaction (Unknown, Verified 09/12/23 12:56) Itching insulin lispro [From Humalog U-100 Insulin] Adverse Reaction (Unknown, Verified 09/12/23 12:56) Rash Aspirin Allergy (Unknown, Uncoded 03/30/23 13:53) swelling Latex Allergy (Unknown, Uncoded 03/30/23 13:53) rash Metformin Allergy (Unknown, Uncoded 03/30/23 13:53) stomach upset Penicillin Allergy (Unknown, Uncoded 03/30/23 13:53) swelling HPI Comprehensive Diabetes Asmnt Most Recent Diabetes Results: Hemoglobin A1c 7.4 % 11/13/19 Microalb/Creat Ratio 59.9 ug/mg cr (<30) H 09/03/23 Cholesterol 138 MG/DL 11/13/19 HDL Cholesterol 33 MG/DL 11/13/19 Triglycerides 156 MG/DL 11/13/19 Creatinine 0.67 mg/dL (0.5-1.4) 07/10/23 Blood Urea Nitrogen 14 mg/dL (9-16) 07/10/23 Sodium 135 mmol/L (135-145) 07/10/23 Potassium 4.2 mmol/L (3.3-5.1) 07/10/23 Chloride 106 mmol/L (96-108) 07/10/23 Carbon Dioxide 20 mmol/L (22-29) L 07/10/23 Calcium 9.5 mg/dL (8.4-10.2) 07/10/23 AST 17 U/L (5-31) 11/13/19 ALT 13 U/L (0-31) 11/13/19 Total Protein 8.0 G/DL (6.5-8.0) 11/13/19 Albumin 4.2 G/DL (3.5-5.0) 11/13/19 [facility] Medical History (Updated 03/30/23 @ 13:57 by Irvin Sanchez MD) Uncontrolled type 2 diabetes mellitus with hyperglycemia Neuropathy Right sciatic nerve pain FLORENCIA (obstructive sleep apnea) Asthma Type 2 diabetes mellitus Morbid obesity History of deviated nasal septum Surgical History Hx of section Family History Father Multiple sclerosis Mother Diabetes mellitus Sister Lupus Brother No problems noted. Daughter No problems noted. Social History Alcohol intake: never Assessment & Plan Assessment & Plan (1) Uncontrolled type 2 diabetes mellitus with hyperglycemia: Code(s): E11.65 - Type 2 diabetes mellitus with hyperglycemia Plan: Personal Continuous Glucose Monitor: Patients CGM information reviewed Reviewed patient's sensor data: Hypoglycemia: ? 0% Hyperglycemia:? 15% Time in Range:? 85% Average glucose for the last 2 weeks?143 mg/dL Patient has previously been on Medtronic 630 G, she is interested in resuming insulin pump therapy. Instructed patient she needs to contact PCP for referral back to endocrine and [facility], if she wishes to use insulin pump. Most PCPs do not manage insulin pumps. Once we receive referral, we can initiate the order for the beta biotics iLet Reviewed how to interpret trend arrows Reminded patient that to check finger sticks if symptoms do not match sensor reading. Discussed lag time between finger stick and sensor data.? Patient able to insert sensor independently at home without issue.? Patient Instructions: Patient will follow-up with life educator in 1 month Coding Level of Care Code Est Pt Level 1 (84316) Diagnoses Uncontrolled type 2 diabetes mellitus with hyperglycemia E11.65
== END 2024-01-23 15:37 | disposition home or self-care (01) ==
PROVIDERS: PCP Internal Medicine; Visit Provider Registered Nurse Diabetes Educator
DX: E11.65 Type 2 diabetes mellitus with hyperglycemia (principal)

== ENCOUNTER → 2024-01-23 15:07 | Outpatient (BNVA) | payer OTHER, SELFPAY | PROVIDERS: PCP Internal Medicine; Visit Provider Registered Nurse Diabetes Educator | DX: E11.65 Type 2 diabetes mellitus with hyperglycemia (principal) | CPT/HCPCS: 99211 ==

== ENCOUNTER → 2024-01-25 10:39 | Outpatient (BNVA) | payer OTHER, SELFPAY | PROVIDERS: PCP Internal Medicine; Visit Provider Physician Assistant Surgical ==

== ENCOUNTER 2024-03-24 08:11 | Outpatient (AMB) | payer OTHER, SELFPAY ==
[2024-03-24 13:23] VITALS: BMI 47.2
--- NOTE | 2024-03-24 13:23 | A.OFFVIS_ITS ---
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 dulaglutide [From Trulicity] Adverse Reaction (Unknown, Verified 01/25/24 11:13) Itching insulin lispro [From Humalog U-100 Insulin] Adverse Reaction (Unknown, Verified 01/25/24 11:13) Rash Aspirin Allergy (Unknown, Uncoded 01/25/24 11:13) swelling Latex Allergy (Unknown, Uncoded 01/25/24 11:13) rash Metformin Allergy (Unknown, Uncoded 01/25/24 11:13) stomach upset Penicillin Allergy (Unknown, Uncoded 01/25/24 11:13) swelling Medication List - Last Reconciled 03/24/24 by Neville Stephens MD atorvastatin 20 mg PO DAILY blood sugar diagnostic (Contour Next Test Strips) As directed blood-glucose meter (Contour Next Meter) As directed blood-glucose sensor (Dexcom G7 Sensor device) CHANGE EVERY 10 DAYS empagliflozin (Jardiance) 25 mg PO DAILY ferrous sulfate (FeroSul) 325 mg PO DAILY gabapentin 600 mg PO BEDTIME insulin aspart U-100 (Novolog FlexPen U-100 Insulin aspart) 50 units (0.5 mL) subcut DAILY Lantus Solostar U-100 Insulin (insulin glargine) 50 units (0.5 mL) subcut DAILY NS lisinopril 2.5 mg PO DAILY loratadine (Allergy Relief (loratadine)) 10 mg PO DAILY paroxetine HCl 30 mg PO DAILY pen needle, diabetic (BD Haylee 2nd Gen Pen Needle) TAKE DIRECTED INJECT FOUR TIMES DAILY tirzepatide (Mounjaro) 5 mg (0.5 mL) subcut QWEEK HPI 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*: Details: Start time: 1.10pm, End time: 2.07pm ?I spent 52 minutes speaking with the patient on the phone plus an additional 5 minutes reviewing and updating records for a total of 57 minutes HPI Comments Details: Previous weight loss efforts: diet and exercise Wakes up: 11am, Sleeps: 2am Breakfast: skips Lunch: 1pm (ham sandwich) Dinner: 8pm (meat and rice) Snacks: 3-4pm (fruits), 1am yogurt) Exercise: none Fluids: Coffee: none, tea: none, soda: none, juice: crystal light, ETOH: none PFSH Medical History (Updated 03/24/24 @ 13:33 by Neville Stephens MD) Depression Hypertension Hyperlipidemia Uncontrolled type 2 diabetes mellitus with hyperglycemia Neuropathy Right sciatic nerve pain FLORENCIA (obstructive sleep apnea) Asthma Type 2 diabetes mellitus Morbid obesity History of deviated nasal septum Surgical History Hx of section Family History Father Multiple sclerosis Mother Diabetes mellitus Sister Lupus Brother No problems noted. Daughter No problems noted. Social History Alcohol intake: never Physical Exam Vital Signs: BMI result Body Mass Index 47.2 Telehealth Telehealth Telehealth Platform: Telephone Location of provider rendering services: practice address Location of patient: address on file Patient Identification confirmed using: Name, : Yes Telehealth method: voice only Patient verbally consented to treatment: Yes Patient verbally consented to billing insurance company: Yes Patient informed of any privacy concerns related to visit: Yes Minutes spent on Phone/Video with Pt.: 57 Assessment & Plan Assessment & Plan (1) Morbid obesity: Code(s): E66.01 - Morbid (severe) obesity due to excess calories Category: Medical Plan: 1.? Plan for lap sleeve gastrectomy. If diaphragmatic or ventral hernias are present at time of surgery, these will be repaired laparoscopically as well. Risks and complications were discussed in detail including possible conversion to an open procedure, anastomotic leak, bleeding requiring transfusion, small bowel obstruction, , DVT and pulmonary embolism, cardiac, or pulmonary complications, as half-way complications such as anastomotic ulcer, insufficient weight loss and vitamin deficiencies. I emphasized the importance of close follow-up, adherence to instructions and good communication. 2. You will receive a link of our software isabel to generate an individualized nutritional and exercise plan specific for you. Please send me a screenshot of the plans you will generate Meal to include lean meat (beef, fish, pork, turkey, chicken), or hebrew yogurt, or egg whites, or beans with a salad with olive oil and fruits (berries, pears, apples, kiwi). Avoid salt, breads, potatoes, rice, pasta, desserts. ?3. If you choose shakes, each shake would be drunk slowly, like coffee in a period of 2 hours. ?4. If you choose bars, cut each bar in 4 pieces and eat each piece in 30min ?to make each bar last 2 hours. ?5. I emphasized the importance of measuring accurately the food portion and measure it when serving the food in plate ?6. The meal portions include a specific number of forks of meat and salad. You always eat the meat portion but you can replace up to half of salad/vegetables portion with rice, potatoes or pasta, or a fruit ?if you like. The less you do it the better weight loss will be. ?7. One full-size fork is what it can be scooped on the fork without falling aside and not what can be bit with the fork. Use regular forks like those you find in a typical restaurant. ?8.? Please send me weight measurements as soon as possible and then once a week. Always include your diet and exercise plan. 9. The best choice would be to purchase a stationary bike, elliptical or treadmill at home that can track calories. Let me know if you do so I can give you an exercise plan. ?10.?It is important of avoiding and for at least 18 months postoperatively and has been discussed at the infosession. ?11. Goal is to lose at least 1.5-2lbs per week ?12. Goal to lose 10% of your weight before surgery, which is about 25lbs. Ultimate weight goal: 230lbs before surgery 13. Please follow the diet plan exactly without any change. If you don't like something about the plan or you feel hungry you need to communicate with me so I can help you revise the plan. You should not change the plan yourself. 14. To be scheduled for EGD to assess the stomach's anatomy. The possibility of biopsies was discussed. Patient needs to avoid use of NSAIDs and aspirin for 1 week prior to EGD. Risks of perforation and? bleeding was discussed with the patient. This will be an outpatient procedure with IV sedation. Orders: Orders Insulin Today E11.65 - Type 2 diabetes mellitus with hyperglycemia, E66.01 - Morbid (severe) obesity due to excess calories, E78.5 - Hyperlipidemia, unspecified, G47.33 - Obstructive sleep apnea (adult) (pediatric), I10 - Essential (primary) hypertension Hemoglobin A1c Today E11.65 - Type 2 diabetes mellitus with hyperglycemia, E66.01 - Morbid (severe) obesity due to excess calories, E78.5 - Hyperlipidemia, unspecified, G47.33 - Obstructive sleep apnea (adult) (pediatric), I10 - Essential (primary) hypertension Lipid Panel Today E11.65 - Type 2 diabetes mellitus with hyperglycemia, E66.01 - Morbid (severe) obesity due to excess calories, E78.5 - Hyperlipidemia, unspecified, G47.33 - Obstructive sleep apnea (adult) (pediatric), I10 - Essential (primary) hypertension Vitamin B12 and Folate Today E11.65 - Type 2 diabetes mellitus with hyperglycemia, E66.01 - Morbid (severe) obesity due to excess calories, E78.5 - Hyperlipidemia, unspecified, G47.33 - Obstructive sleep apnea (adult) (pediatric), I10 - Essential (primary) hypertension TSH reflex Free T4 Today E11.65 - Type 2 diabetes mellitus with hyperglycemia, E66.01 - Morbid (severe) obesity due to excess calories, E78.5 - Hyperlipidemia, unspecified, G47.33 - Obstructive sleep apnea (adult) (pediatric), I10 - Essential (primary) hypertension Ferritin Today E11.65 - Type 2 diabetes mellitus with hyperglycemia, E66.01 - Morbid (severe) obesity due to excess calories, E78.5 - Hyperlipidemia, unspecified, G47.33 - Obstructive sleep apnea (adult) (pediatric), I10 - Essential (primary) hypertension Vitamin D 25-OH Total Today E11.65 - Type 2 diabetes mellitus with hyperglycemia, E66.01 - Morbid (severe) obesity due to excess calories, E78.5 - Hyperlipidemia, unspecified, G47.33 - Obstructive sleep apnea (adult) (pediatric), I10 - Essential (primary) hypertension ECG 12 lead EKG Today E11.65 - Type 2 diabetes mellitus with hyperglycemia, E66.01 - Morbid (severe) obesity due to excess calories, E78.5 - Hyperlipidemia, unspecified, G47.33 - Obstructive sleep apnea (adult) (pediatric), I10 - Essential (primary) hypertension H Pylori Breath Test Today E11.65 - Type 2 diabetes mellitus with hyperglycemia, E66.01 - Morbid (severe) obesity due to excess calories, E78.5 - Hyperlipidemia, unspecified, G47.33 - Obstructive sleep apnea (adult) (pediatric), I10 - Essential (primary) hypertension Complete Blood Count Auto Diff Today E11.65 - Type 2 diabetes mellitus with hyperglycemia, E66.01 - Morbid (severe) obesity due to excess calories, E78.5 - Hyperlipidemia, unspecified, G47.33 - Obstructive sleep apnea (adult) (pediatric), I10 - Essential (primary) hypertension IRON PROFILE Today E11.65 - Type 2 diabetes mellitus with hyperglycemia, E66.01 - Morbid (severe) obesity due to excess calories, E78.5 - Hyperlipidemia, unspecified, G47.33 - Obstructive sleep apnea (adult) (pediatric), I10 - Essential (primary) hypertension Comprehensive Met. Panel Today E11.65 - Type 2 diabetes mellitus with hyperglycemia, E66.01 - Morbid (severe) obesity due to excess calories, E78.5 - Hyperlipidemia, unspecified, G47.33 - Obstructive sleep apnea (adult) (pediatric), I10 - Essential (primary) hypertension Zinc Today E11.65 - Type 2 diabetes mellitus with hyperglycemia, E66.01 - Morbid (severe) obesity due to excess calories, E78.5 - Hyperlipidemia, unspe cified, G47.33 - Obstructive sleep apnea (adult) (pediatric), I10 - Essential (primary) hypertension C Reactive Protein Today E11.65 - Type 2 diabetes mellitus with hyperglycemia, E66.01 - Morbid (severe) obesity due to excess calories, E78.5 - Hyperlipidemia, unspecified, G47.33 - Obstructive sleep apnea (adult) (pediatric), I10 - Essential (primary) hypertension Vitamin B1 Today E11.65 - Type 2 diabetes mellitus with hyperglycemia, E66.01 - Morbid (severe) obesity due to excess calories, E78.5 - Hyperlipidemia, unspecified, G47.33 - Obstructive sleep apnea (adult) (pediatric), I10 - Essential (primary) hypertension Vitamin A Today E11.65 - Type 2 diabetes mellitus with hyperglycemia, E66.01 - Morbid (severe) obesity due to excess calories, E78.5 - Hyperlipidemia, unspecified, G47.33 - Obstructive sleep apnea (adult) (pediatric), I10 - Essential (primary) hypertension US abdomen comp w elastography Today E11.65 - Type 2 diabetes mellitus with hyperglycemia, E66.01 - Morbid (severe) obesity due to excess calories, E78.5 - Hyperlipidemia, unspecified, G47.33 - Obstructive sleep apnea (adult) (pediatric), I10 - Essential (primary) hypertension XR chest 2V Today E11.65 - Type 2 diabetes mellitus with hyperglycemia, E66.01 - Morbid (severe) obesity due to excess calories, E78.5 - Hyperlipidemia, unspecified, G47.33 - Obstructive sleep apnea (adult) (pediatric), I10 - Essential (primary) hypertension FL upper GI w air Today E11.65 - Type 2 diabetes mellitus with hyperglycemia, E66.01 - Morbid (severe) obesity due to excess calories, E78.5 - Hyperlipidemia, unspecified, G47.33 - Obstructive sleep apnea (adult) (pediatric), I10 - Essential (primary) hypertension Referrals Behavioral Health Referral E11.65 - Type 2 diabetes mellitus with hyperglycemia, E66.01 - Morbid (severe) obesity due to excess calories, E78.5 - Hyperlipidemia, unspecified, G47.33 - Obstructive sleep apnea (adult) (pediatric), I10 - Essential (primary) hypertension Nutrition/Dietitian Referral E11.65 - Type 2 diabetes mellitus with hyperglycemia, E66.01 - Morbid (severe) obesity due to excess calories, E78.5 - Hyperlipidemia, unspecified, G47.33 - Obstructive sleep apnea (adult) (pediatric), I10 - Essential (primary) hypertension
== END 2024-03-24 14:07 | disposition home or self-care (01) ==
LOC: HO.HBS 08:11
PROVIDERS: PCP Internal Medicine; Visit Provider Surgery
DX: E66.01 Morbid (severe) obesity due to excess calories (principal)
CPT/HCPCS: 99204

== ENCOUNTER → 2024-03-24 08:11 | Outpatient (BNVA) | payer OTHER, SELFPAY | PROVIDERS: PCP Internal Medicine; Visit Provider Surgery ==

== ENCOUNTER 2024-04-01 09:52 | Outpatient (REF) | payer OTHER, SELFPAY ==
--- NOTE | ~2024-04-01 | XR_ITS ---
EXAMINATION: XR CHEST CLINICAL INFORMATION: Morbid severe obesity due to excess calories, patient states this is a preop chest x-ray. COMPARISON: 11/13/2019 TECHNIQUE: 2 views of the chest were obtained. FINDINGS: Low lung volumes. No gross pneumothorax. Heart size normal. No pleural effusion. Degenerative changes in the thoracic spine. No focal consolidation to suggest pneumonia. XR/XR chest 2V IMPRESSION: No evidence of pneumonia.
[2024-04-01 10:09] LABS: MANUAL DIFF FLAG NO
[2024-04-01 10:33] LABS: Basophils Percent Auto 0.3 % (0-2); Eosinophils Absolute Auto 0.4 X10*3/uL (0.0-0.4); Eosinophils Percent Auto 3.1 % (0-4); Hematocrit 44.5 % (37.0-47.0); Hemoglobin 14.8 g/dl (12.0-16.0); Imm Gran Abs Auto 0.04 X10*3/uL (0.00-0.03); Imm Gran Pct Auto 0.3 % (0.0-0.4); Lymphocytes Absolute Auto 3.3 X10*3/uL (1.2-4.9); Lymphocytes Percent Auto 28.5 % (20-40); Mean Corpuscular HGB Conc 33.3 g/dl (31.0-35.0); Mean Corpuscular Hemoglobin 27.3 pg (27.0-33.0); Mean Corpuscular Volume 82.1 fL (80.0-98.0); Monocytes Absolute Auto 0.6 X10*3/uL (0.1-1.2); Monocytes Percent Auto 5.2 % (2-11); Neutrophils Absolute Auto 7.3 x10*3/uL (2.0-8.3); Neutrophils Percent Auto 62.6 % (45-73); Platelet Count 276 X10*3/uL (160-400); Red Blood Count 5.42 X10*6/uL (4.20-5.50); Red Cell Distribution Width 13.3 % (11.0-16.0); White Blood Count 11.7 X10*3/uL (4.8-10.8)
--- NOTE | 2024-04-01 11:11 | ECG_ITS ---
Test Reason : morbid obesity Blood Pressure : / mmHG Vent. Rate : 078 BPM Atrial Rate : 078 BPM P-R Int : 138 ms QRS Dur : 086 ms QT Int : 378 ms P-R-T Axes : 033 012 036 degrees QTc Int : 430 ms Normal sinus rhythm Normal ECG When compared with ECG of 13-NOV-2019 07:28, No significant change was found Referred By: Neville Stephens Electronically Signed By:[place]
[2024-04-01 11:18] LABS: Estimated Average Glucose 134 mg/dL; Hemoglobin A1c % 6.3 % (<6.0)
[2024-04-01 11:34] LABS: Alanine Aminotransferase 19 U/L (0-31); Albumin Level 4.1 g/dL (3.5-5.0); Alkaline Phosphatase 92 U/L (39-117); Anion Gap 14 (12-20); Aspartate Amino Transferase 16 U/L (5-31); Bilirubin Total 0.7 mg/dL (0.0-1.0); Blood Urea Nitrogen 16 mg/dL (9-16); C Reactive Protein 0.61 mg/dL (< or = 0.50); Calcium 9.8 mg/dL (8.4-10.2); Carbon Dioxide 20 mmol/L (22-29); Chloride 107 mmol/L (96-108); Cholesterol 158 mg/dL (<200); Estimated Glomerular Filt Rate > 60; Glucose Random 114 mg/dL (60-115); HDL Cholesterol 33 mg/dL (>40); Iron 54 mcg/dL (30-160); LDL Cholesterol Calculated 83 mg/dL (<100); Percent Iron Saturation 17 % (15-50); Potassium 3.8 mmol/L (3.3-5.1); Sodium 137 mmol/L (135-145); Total Iron Binding Capacity 327 mcg/dL (228-428); Total Protein 8.5 g/dL (6.5-8.0); Triglycerides 212 mg/dL (<150); Unsaturated Iron Binding 273 ug/dL
[2024-04-01 12:01] LABS: Ferritin 61 ng/mL (10-250); Folate 11.1 ng/mL (> or = 4.0); TSH reflex Free T4 3.61 uIU/mL (0.32-4.0); Vitamin B12 714 pg/mL (200-900)
[2024-04-01 12:48] LABS: Insulin 51 uU/mL (2-29)
[2024-04-04 17:08] LABS: Zinc 64 mcg/dL (60-130)
[2024-04-05 21:03] LABS: Vitamin A 70 mcg/dL (38-98)
[2024-04-09 06:23] LABS: Vitamin B1 14 nmol/L (8-30)
== END 2024-04-01 09:53 | disposition home or self-care (01) ==
LOC: HO.LAB 09:52
PROVIDERS: PCP Internal Medicine; Visit Provider Surgery
DX: E66.01 Morbid (severe) obesity due to excess calories (principal); E11.65 Type 2 diabetes mellitus with hyperglycemia; G47.33 Obstructive sleep apnea (adult) (pediatric); I10 Essential (primary) hypertension; E78.5 Hyperlipidemia, unspecified
CPT/HCPCS: 36415; 71046; 80053; 80061; 82306; 82607; 82728; 82746; 83036; 83525; 83540; 84425; 84443; 84590; 84630; 85025; 86140; 93005

== ENCOUNTER → 2024-04-01 11:11 | Outpatient (BNV) | payer OTHER, SELFPAY | PROVIDERS: PCP Internal Medicine; Visit Provider Internal Medicine | DX: Z01.818 Encounter for other preprocedural examination (principal); E66.01 Morbid (severe) obesity due to excess calories | CPT/HCPCS: 93010 ==

== ENCOUNTER → 2024-04-14 12:41 | Outpatient (BNVA) | payer OTHER, SELFPAY | PROVIDERS: PCP Internal Medicine; Visit Provider Physician Assistant Surgical ==

== ENCOUNTER 2024-04-15 07:39 | Outpatient (REF) | payer OTHER, SELFPAY ==
--- NOTE | ~2024-04-15 | US_ITS ---
EXAMINATION: US COMPLETE ABDOMEN WITH LIVER ELASTOGRAPHY CLINICAL INFORMATION: Morbid obesity. COMPARISON: None available. TECHNIQUE: Real-time imaging of the abdominal viscera. Noninvasive ultrasound liver fibrosis assessment is performed using Dillon ElastPQ point quantification shear wave elastography (2D-SWE) with a C5-2 MHz transducer. Multiple elastography samples are obtained. FINDINGS: PANCREAS: The visualized pancreatic head and body are normal in appearance. The remainder of the pancreas is obscured from visualization by the overlying bowel gas. ABDOMINAL AORTA: The distal aorta is obscured by bowel gas. The proximal and mid aorta shows no evidence of aneurysm. INFERIOR VENA CAVA: Visualized portions are normal. LIVER: The liver is enlarged measuring 19 cm in greatest length with increased echogenicity consistent with hepatic steatosis. No focal lesion or intrahepatic biliary duct dilatation. The right lobe measures 19.0 cm in length. The left lobe measures 13.0 cm in length. Portal flow is towards the liver (hepatopetal). Shear wave liver elastography median stiffness is 1.68 m/s (reference: normal median stiffness is 1.3 m/s or less). IQR/median stiffness to assess sampling precision is 0.14 (reference: good quality data set is IQR/median stiffness of 0.15 or less). GALLBLADDER: The gallbladder is physiologically distended without evidence of stones, sludge, polyps, wall thickening or pericholecystic fluid. COMMON BILE DUCT: Normal in caliber measuring 0.4 cm in diameter. RIGHT KIDNEY: Normal. No hydronephrosis. No renal calculi or focal parenchymal lesions. The kidney measures 11.0 cm in maximum dimension. LEFT KIDNEY: Normal. No hydronephrosis. No renal calculi or focal parenchymal lesions. The kidney measures 11.3 cm in maximum dimension. SPLEEN: Normal. The spleen measures 11.0 cm in maximum dimension. FREE FLUID: None. US/US abdomen comp w elastography IMPRESSION: 1. Enlarged echogenic liver consistent with hepatic steatosis. 2. Liver Elastography: In the absence of other known clinical signs, measurements rule out compensated advanced chronic liver disease. If there are known clinical signs, further testing may be needed for confirmation. REFERENCE: Society of Radiologists in Ultrasound Liver Stiffness Thresholds (2020): LIVER STIFFNESS THRESHOLDS: *Liver Stiffness equal or less than 1.3 m/s: High probability of being normal. *Liver Stiffness less than 1.7 m/s: In the absence of other known clinical signs, rules out compensated advanced chronic liver disease. *Liver Stiffness 1.7-2.1 m/s: Suggestive of compensated advanced chronic liver disease but need further test for confirmation. *Liver Stiffness over 2.1 m/s: Rules in compensated advanced chronic liver disease. *Liver Stiffness over 2.4 m/s: Suggestive of clinically significant portal hypertension. QUALITY OF DATA SET: *IQR/Median value equal or less than 0.15 implies a quality data set. *IQR/Median value over 0.15 implies a poor quality data set. SIGNIFICANT CHANGE FROM PRIOR EXAM: Significant change if liver stiffness measurement is 10% or greater from prior exam. OTHER CONSIDERATIONS: The stage of liver fibrosis may be overestimated in the setting of acute hepatitis, liver inflammation, elevated liver function tests, hepatic vascular congestion, obstructive cholestasis, non-fasting state, and infiltrative diseases such as amyloidosis and lymphoma. In some patients with NAFLD, the liver stiffness thresholds for compensated advanced chronic liver disease may be lower. In causes other than viral hepatitis and NAFLD, liver stiffness thresholds are not well established.
== END 2024-04-15 07:40 | disposition home or self-care (01) ==
LOC: HO.US 07:39
PROVIDERS: PCP Internal Medicine; Visit Provider Surgery
DX: E66.01 Morbid (severe) obesity due to excess calories (principal); E11.65 Type 2 diabetes mellitus with hyperglycemia; I10 Essential (primary) hypertension; E78.5 Hyperlipidemia, unspecified; G47.33 Obstructive sleep apnea (adult) (pediatric)
CPT/HCPCS: 76700; 76981

== ENCOUNTER 2024-05-06 11:24 | Outpatient (AMB) | payer OTHER, SELFPAY ==
--- NOTE | 2024-05-06 11:27 | MHC.OFFVISWM ---
VS Expanded 05/06/24 11:35 BP 117/73 Blood Pressure Location Rt brachial Blood Pressure Position Sitting Pulse 75 Pulse Source Pulse Oximeter Temp 96.0 F L Temperature Source Temporal Artery Scan Pulse Oximetry 96 Oxygen Delivery Method Room Air Height 5 ft 1.5 in Weight 247 lb 3.2 oz BMI 45.9 Body Fat % 47.4 Body Fat Mass 117.0 Fat Free Mass 130.0 Visceral Fat Rating 16.0 Body Water % 37.6 Body Water Mass 92.8 Muscle Mass/Score 123.4 Basal Metabolic Rate/Score 1,843 Intake Visit Reasons: (OV) F/U SWL( ) Early Childhood Associate Required: Yes Early Childhood Associate Name: cmi Allergies dulaglutide [From Trulicity] Adverse Reaction (Unknown, Verified 05/06/24 11:31) Itching insulin lispro [From Humalog U-100 Insulin] Adverse Reaction (Unknown, Verified 05/06/24 11:31) Rash Aspirin Allergy (Unknown, Uncoded 01/25/24 11:13) swelling Latex Allergy (Unknown, Uncoded 01/25/24 11:13) rash Metformin Allergy (Unknown, Uncoded 01/25/24 11:13) stomach upset Penicillin Allergy (Unknown, Uncoded 01/25/24 11:13) swelling Medication List - Last Reconciled 05/06/24 by ERNESTINE Osman atorvastatin 20 mg PO DAILY blood sugar diagnostic (Contour Next Test Strips) As directed blood-glucose meter (Contour Next Meter) As directed blood-glucose sensor (Dexcom G7 Sensor device) CHANGE EVERY 10 DAYS empagliflozin (Jardiance) 25 mg PO DAILY ferrous sulfate (FeroSul) 325 mg PO DAILY gabapentin 600 mg PO BEDTIME insulin aspart U-100 (Novolog FlexPen U-100 Insulin aspart) 50 units (0.5 mL) subcut DAILY lisinopril 2.5 mg PO DAILY loratadine (Allergy Relief (loratadine)) 10 mg PO DAILY paroxetine HCl 30 mg PO DAILY pen needle, diabetic (BD Haylee 2nd Gen Pen Needle) TAKE DIRECTED INJECT FOUR TIMES DAILY tirzepatide (Mounjaro) 5 mg (0.5 mL) subcut QWEEK HPI Comments Details: Patient is a pleasant 49-year-old female who returns to the office today in follow-up. She was initially seen by Dr. Stephens to begin the Surgical weight loss program on 03/24/2024. Weight at that time was 254 lb with a BMI of 47.2. Weight today is 247.2 lb with a BMI of 45.9. She has lost 6.8 lb or 2.67% total body weight loss. She states she is using the isabel. She states she has been texting w Dr Mcgrath. Meal plan: Pure protein 1 scoop in 8 oz of 2 and /2 (not recc by the isabel), 10-1005 protein bar fit crunch 12-1220 another shake 3 pm-305 another bar 5-520 pm meal at 8 pm, 4 forks protein and 7 forks vegetables. another bar MN-1220 drinkin-80 oz water, no soda or juice Exercise plan: walking on treadmill 5 days per week, 200 [address], speed 2.5, incline 0-1 PFSH Medical History Depression Hypertension Hyperlipidemia Uncontrolled type 2 diabetes mellitus with hyperglycemia Neuropathy Right sciatic nerve pain FLORENCIA (obstructive sleep apnea) Asthma Type 2 diabetes mellitus Morbid obesity History of deviated nasal septum Surgical History Hx of section Family History Father Multiple sclerosis Mother Diabetes mellitus Sister Lupus Brother No problems noted. Daughter No problems noted. Social History Alcohol intake: never Physical Exam Const General: healthy appearing and no acute distress Resp Effort & Inspection: normal respiratory effort Auscultation: clear to auscultation bilaterally Cardio Rate: regular rate Rhythm: regular rhythm GI Auscultation: normal bowel sounds Extrem General: Yes normal to inspection Assessment & Plan Assessment & Plan (1) Morbid obesity: Code(s): E66.01 - Morbid (severe) obesity due to excess calories Category: Medical Plan: Discussed the importance of following the meal plan exactly. She was not doing the time correctly and she was using half and half for the liquid for her shakes. I told her to stop this immediately. She is going to create a new meal plan using unsweetened soy milk or milk as she did not like the almond milk. Additionally, discussed the importance of exercise, including increasing the incline on the treadmill as well as adding in the stationary bike or elliptical machine. Discussed increasing frequency of exercise to 7 days a week and increasing calories burned to 350. We will have her return to the office in approximately 1 month.
[2024-05-06 11:35] VITALS: BP 117/73; PULSE 75; TEMP 35.6; O2SAT 96; BMI 45.9
== END 2024-05-06 12:06 | disposition home or self-care (01) ==
PROVIDERS: PCP Internal Medicine; Visit Provider Physician Assistant Surgical
DX: E66.01 Morbid (severe) obesity due to excess calories (principal); Z68.42 Body mass index [BMI] 45.0-49.9, adult
CPT/HCPCS: 99213

== ENCOUNTER → 2024-05-06 11:24 | Outpatient (BNVA) | payer OTHER, SELFPAY | PROVIDERS: PCP Internal Medicine; Visit Provider Physician Assistant Surgical | DX: E66.01 Morbid (severe) obesity due to excess calories (principal); Z68.42 Body mass index [BMI] 45.0-49.9, adult | CPT/HCPCS: 99212 ==

== ENCOUNTER 2024-05-27 08:03 | Day surgery (SDC) | payer OTHER, SELFPAY ==
[2024-05-27 08:34] LABS: UPreg QC Valid YES; Urine Pregnancy NEGATIVE (NEGATIVE)
[2024-05-27 09:14] VITALS: BP 106/70; PULSE 78; RESP 19; TEMP 36.9; O2SAT 95; BMI 49.5
[2024-05-27 09:30] LABS: Glucose, Whole Blood 108 mg/dL (60-115)
[2024-05-27] MEDS: Lactated Ringers 1,000 ML 80 ML IVCONT (09:41)
--- NOTE | 2024-05-27 10:17 | MHC.SHP ---
Pre-Procedural Eval Section A - 24 Hr Update-Section A only Date of Service: 05/27/24 The patient is an INPATIENT: No The patient has been examined within 24 hours of the surgical procedure. The History & Physical has been completed within 30 days and I have reviewed it.: Yes Section B - Complete if H&P > 30 days Chief Complaint: obesity Relevant Family History (Specify if Yes): No Relevant Social History: None Present Medications: None Medical History: No relevant PMH History of Previous Operations: No relevant previous surgery Allergies: Allergies Allergy/AdvReac Type Severity Reaction Status Date / Time dulaglutide [From Trulicity] AdvReac Unknown Itching Verified 05/06/24 11:31 insulin lispro AdvReac Unknown Rash Verified 05/06/24 11:31 [From Humalog U-100 Insulin] Aspirin Allergy Unknown swelling Uncoded 01/25/24 11:13 Latex Allergy Unknown rash Uncoded 01/25/24 11:13 Metformin Allergy Unknown stomach Uncoded 01/25/24 11:13 upset Penicillin Allergy Unknown swelling Uncoded 01/25/24 11:13 Review of Systems Sugical H&P ROS: Negative: Constitution, Cardiovascular, Respiratory, Neurological, Psychiatric, Hem-Onc, Allergic/Immunologic, Gastrointestinal, Genitourinary, Musculoskeletal, Integumentary, Endocrine and Eyes/Ears/Nose/Throat Exam Surgical H&P Exam: Normal: HEENT, Normal: Heart, Normal: Lungs, Normal: Extremities, Normal: Abdomen, Normal: Skin and Normal: Neurological Plan Diagnosis/Plan: Unchanged (EGD to assess the anatomy of the stomach. Risks of bleeding and perforation were discussed with the patient and she is in agreement with the plan.) I have reviewed the history and physical and performed a pertinent physical examination on my patient. No changes have occurred unless specified. Time Spent With Patient Time: Total time managing care of this patient today ____ minutes.
--- NOTE | 2024-05-27 10:22 | PM.OP ---
Brief Operative Note Date of Service: 05/27/24 Pre-op diagnosis: Morbid obesity Post-op diagnosis: same Procedure: PROCEDURE DATE: 05/27/2024 PREOPERATIVE DIAGNOSIS: GERD POSTOPERATIVE DIAGNOSIS: ?Same as above. 1) small hiatal hernia, 2) esophagitis PROCEDURE: [id number] with biopsies Surgeon: ?Jim Stephens M.D.. Ph.D. Coding Compliance Manager: None ? Anesthesia: IV sedation Estimated blood loss: ?Minimal FINDINGS AND PROCEDURE: ? OPERATIVE INDICATIONS: ?The patient is a 49 year old female known to me who is interested in bariatric surgery. Based on this information I recommended an upper endoscopy to evaluate the anatomy of the stomach. Risks and complications of the surgery were discussed with the patient in advance particularly the possibility of perforation or bleeding that may require surgical intervention. The patient understood the risks and was in agreement with the plan. ? PROCEDURE: After informed consent was obtained by the patient, the patient was ?transferred to the Operating Room and was placed in the supine position.? After successful induction of IV sedation, a mouth block was inserted and the patient was placed in the left lateral decubitus position. An upper endoscopy was performed next, the oropharynx and esophagus appeared within the normal limits. There was a 2-3cm hiatal hernia. The z-line was irregular with tongues of gastric mucosa protruding into the esophagus in 25% circumference. Two biopsies were obtained from the distal esophagus 2-3 cm proximal to the GE junction and two additional biopsies from the GE junction. The stomach was entered and it appeared to be of normal size. There was no gastritis. There was no stricture or ulcer. A biopsy was obtained from the gastric fundus and the antrum. No significant bleeding was noted from any of the biopsy sites. Retroflexion of the scope confirmed the presence of a small hiatal hernia. The scope was then advanced into the duodenum which appeared to be normal as well. At that point the duodenum ?and the stomach were decompressed and the scope was withdrawn from the patient's mouth. The patient extubated and was transferred in stable condition to the Recovery Room for further care. I was present and performed all steps of the procedure. There were no residents to assist with this case. Jim Stephens M.D., Ph.D. Surgeon: Neville Stephens MD Anesthesia: MAC Was an Coding Compliance Manager used for this Procedure?: No Estimated blood loss (mL): 0 IV fluids (mL): 400 Urine output (mL): 0 (No Do to record output) Pathology: other (1) antrum x1, 2) fundus x1, 3) GE junction x2, 4) distal esophagus x2) Condition: stable Disposition: PACU
[2024-05-27 10:50] VITALS: BP 119/75; PULSE 82; RESP 16; TEMP 36.8; O2SAT 94
--- NOTE | 2024-05-27 10:57 | HO.ANESPROP2 ---
HPI - Anesthesia Eval Consult details Narrative: endo PMFSH Active Problems Active Problems: All Active Problems Depression (Acute) Hypertension (Acute) Hyperlipidemia (Acute) Asthma (Acute) Neuropathy (Acute) FLORENCIA (obstructive sleep apnea) (Acute) Uncontrolled type 2 diabetes mellitus with hyperglycemia (Acute) Morbid obesity (Acute) Past Medical History Medical History Depression Hypertension Hyperlipidemia Uncontrolled type 2 diabetes mellitus with hyperglycemia Neuropathy Right sciatic nerve pain FLORENCIA (obstructive sleep apnea) Asthma Type 2 diabetes mellitus Morbid obesity History of deviated nasal septum Family History Family History Father Multiple sclerosis Mother Diabetes mellitus Sister Lupus Brother No problems noted. Daughter No problems noted. Family history of problems with anesthesia: No Surgical History Surgical History Hx of section History of Problems with Anesthesia: No Social History Social History Alcohol intake: never Patient Tobacco Use Status: Never used Tobacco Have you been hit, kicked, punched, or otherwise hurt by someone within the past year? If so, by whom?: No Advance Directives: No Advance Directives Information Provided: Yes Meds Allergies Allergy/AdvReac Type Severity Reaction Status Date / Time dulaglutide [From Trulicity] AdvReac Unknown Itching Verified 05/06/24 11:31 insulin lispro AdvReac Unknown Rash Verified 05/06/24 11:31 [From Humalog U-100 Insulin] Aspirin Allergy Unknown swelling Uncoded 01/25/24 11:13 Latex Allergy Unknown rash Uncoded 01/25/24 11:13 Metformin Allergy Unknown stomach Uncoded 01/25/24 11:13 upset Penicillin Allergy Unknown swelling Uncoded 01/25/24 11:13 Active Medications: Current Medications Lactated Ringer's (Lr) 1,000 mls @ 80 mls/hr IVCONT .[id number] AURA Last Admin: 05/27/24 09:41 Dose: 80 mls/hr Home Medications ?Medication ?Instructions ?Recorded ?Confirmed ?Last Taken ?Type loratadine 10 mg tablet (Allergy 10 mg PO DAILY 08/30/20 05/06/24 Unknown History Relief (loratadine)) paroxetine HCl 30 mg tablet 30 mg PO DAILY 08/30/20 05/06/24 Unknown History atorvastatin 20 mg tablet 20 mg PO DAILY 03/30/23 05/06/24 Unknown History gabapentin 600 mg tablet 600 mg PO BEDTIME 03/30/23 05/06/24 Unknown History ferrous sulfate 325 mg (65 mg 325 mg PO DAILY 05/25/23 05/06/24 Unknown History iron) tablet (FeroSul) lisinopril 2.5 mg tablet 2.5 mg PO DAILY 01/25/24 05/06/24 Unknown History Exam Height,Weight and Vital Signs: Height 5 ft Weight 115.031 kg Last Vital Signs Temp 98.3 F 05/27/24 10:50 Pulse 82 05/27/24 10:50 Resp 16 05/27/24 10:50 BP 119/75 05/27/24 10:50 Pulse Ox 94 05/27/24 10:50 O2 Del Method Room Air 05/27/24 10:50 Pertinent Lab Results Pertinent Lab Results: Laboratory Tests 05/27/24 05/27/24 09:27 Unknown POC Glucose 108 Urine Test NEGATIVE Airway Mallampati Class: II TM Dist: >3cm Neck ROM: Full Heart: rrr Lungs: cta Assessment and Plan Assessment Anesthesia Assessment: Anesthesia Plan Discussed Final Anesthetic Review Family History of Problems with Anesthesia: No History of Problems with Anesthesia: No NPO: Yes ASA Class: III Final Preanesthetic Review: No Changes in Pt Med Stat, Meds/Allgs Chart Reviewed, Consent Obtained/Reviewed and Anes Risks/Benef Reviewed Patient Risk: Intermediate Procedure Risk: Low Anesthetic Plan Anesthetic Plan: MAC: Disposition: Standard PACU
[2024-05-27 11:05] VITALS: BP 94/61; PULSE 82; RESP 16; O2SAT 98
[2024-05-27 11:20] VITALS: BP 114/76; PULSE 75; RESP 16; TEMP 36.1; O2SAT 97
== END 2024-05-27 12:12 | disposition home or self-care (01) ==
PROVIDERS: Anesthesiology; PCP Internal Medicine; Visit Provider Surgery
PROC: 0DJ08ZZ Inspection of Upper Intestinal Tract, Via Natural or Artificial Opening Endoscopic (ICD-10-PCS; CPT 43235; principal; 2024-05-27 10:10)
DX: K21.9 Gastro-esophageal reflux disease without esophagitis (principal); K22.89 Other specified disease of esophagus; E66.01 Morbid (severe) obesity due to excess calories; Z68.42 Body mass index [BMI] 45.0-49.9, adult; K20.80 Other esophagitis without bleeding; K44.9 Diaphragmatic hernia without obstruction or gangrene; F32.A Depression, unspecified; I10 Essential (primary) hypertension; E78.5 Hyperlipidemia, unspecified; G62.9 Polyneuropathy, unspecified; G47.33 Obstructive sleep apnea (adult) (pediatric); E11.65 Type 2 diabetes mellitus with hyperglycemia; Z79.4 Long term (current) use of insulin; Z79.84 Long term (current) use of oral hypoglycemic drugs; Z79.85 Long-term (current) use of injectable non-insulin antidiabetic drugs; Z79.899 Other long term (current) drug therapy; Z88.0 Allergy status to penicillin; Z88.8 Allergy status to other drugs, medicaments and biological substances; Z91.040 Latex allergy status
CPT/HCPCS: 43239; 81025; 82947; 88305; 88313; 88342; J1100; J1596; J2250; J2704

== ENCOUNTER → 2024-05-27 08:03 | Outpatient (BNV) | payer OTHER, SELFPAY | PROVIDERS: PCP Internal Medicine; Visit Provider Surgery | DX: K44.9 Diaphragmatic hernia without obstruction or gangrene (principal) | CPT/HCPCS: 43239 ==

== ENCOUNTER 2024-05-29 09:19 | Outpatient (REF) | payer OTHER, SELFPAY ==
--- NOTE | ~2024-05-29 | FL_ITS ---
EXAMINATION: XR FLUOROSCOPY UPPER GI WITH AIR CLINICAL INFORMATION: Preoperative evaluation prior to back surgery. COMPARISON: None TECHNIQUE: Fluoroscopic air contrast upper GI examination was performed utilizing standard techniques with thin and thick barium and effervescent granules. Numerous spot images were obtained. FINDINGS:Dual and single contrast images of the esophagus demonstrate normal caliber, contour, and mucosal pattern. No evidence of stricture, mass, or ulcerations identified. Esophageal peristalsis was normal. A very small type I hernia is present. No significant gastroesophageal reflux was seen during the course of the examination and on reflux views. Dual contrast and single contrast images of the stomach demonstrated a normal contour. Evaluation of the gastric mucosa is limited due to poor coating of the barium. The gastric rugal folds are thickened appearance in the fundus of the stomach, which suggests gastritis. No masses are present. Contrast freely passed into the gastric antrum and duodenal bulb without delay. Single and air-contrast images of the duodenal bulb demonstrate no abnormality. The duodenal sweep has a normal appearance, course, and mucosal fold appearance. The imaged proximal jejunum has a normal fold pattern and caliber. FLUOROSCOPY TIME: 3 minutes 12 seconds Number of Spot Images: 5 Number of Cine: 11 DOSE AREA PRODUCT: 2926 uGy-m2 (microgray-meter squared) FL/FL upper GI w air IMPRESSION: 1. Very small type I hiatal hernia. 2. Limited evaluation of the gastric mucosa due to poor coating of the barium. The gastric rugal folds in the fundus of the stomach have a thickened appearance, suggestive of gastritis. This procedure was performed by Benjamin Fonseca PA-C, and supervised by Dr. Bauer Electronically signed by: David Bauer MD 05/29/2024 03:56 PM EDT
== END 2024-05-29 09:20 | disposition home or self-care (01) ==
LOC: HO.XRAY 09:19
PROVIDERS: PCP Internal Medicine; Visit Provider Surgery
DX: E66.01 Morbid (severe) obesity due to excess calories (principal); E11.65 Type 2 diabetes mellitus with hyperglycemia; G47.33 Obstructive sleep apnea (adult) (pediatric); I10 Essential (primary) hypertension; E78.5 Hyperlipidemia, unspecified
CPT/HCPCS: 74246

== ENCOUNTER → 2024-05-29 09:23 | Outpatient (BNV) | payer OTHER, SELFPAY | PROVIDERS: PCP Internal Medicine; Visit Provider Radiology Diagnostic Radiology | DX: Z01.818 Encounter for other preprocedural examination (principal) | CPT/HCPCS: 74246 ==

== ENCOUNTER → 2024-06-25 09:52 | Outpatient (AMB) | payer OTHER, SELFPAY ==
--- NOTE | 2024-06-25 12:55 | A.OFFWM_ITS ---
Intake Intake Visit Reasons: VIDEO Intake Allergies dulaglutide [From Trulicity] Adverse Reaction (Unknown, Verified 05/06/24 11:31) Itching insulin lispro [From Humalog U-100 Insulin] Adverse Reaction (Unknown, Verified 05/06/24 11:31) Rash Aspirin Allergy (Unknown, Uncoded 01/25/24 11:13) swelling Latex Allergy (Unknown, Uncoded 01/25/24 11:13) rash Metformin Allergy (Unknown, Uncoded 01/25/24 11:13) stomach upset Penicillin Allergy (Unknown, Uncoded 01/25/24 11:13) swelling [facility] Medical History Depression Hypertension Hyperlipidemia Uncontrolled type 2 diabetes mellitus with hyperglycemia Neuropathy Right sciatic nerve pain FLORENCIA (obstructive sleep apnea) Asthma Type 2 diabetes mellitus Morbid obesity History of deviated nasal septum Surgical History Hx of section Family History Father Multiple sclerosis Mother Diabetes mellitus Sister Lupus Brother No problems noted. Daughter No problems noted. Social History Alcohol intake: never Patient Tobacco Use Status: Never used Tobacco Behavioral Health Assessment Weight Management Therapy Therapy Notes Details PT is a years old F/M, who presents for a visit to complete a ssessment as part of surgical weight loss program. PT reports being interested in weight-loss surgery with the hopes to improve her health and control ongoing medical issues. Patient reports her stomach and her brain are not connected, at times her mind tells her to continue eating despite feeling full and nauseous. She has been doing the meal plan, and has been in need to modify it multiple times, she continues dealing with cravings/urges and thoughts for food that are hard to control. PT will be seen again next week to complete assessment but she will need support pre and post op due to ongoing concern with binge-eating behavior. Presenting Concerns Referral Source P Provider. PT started services again on 03/24/[address] Larose Reason for referral Completion of behavioral health assessment as part of process for weight-loss surgery. Precipitating Event Obesity. Living Situation Current Living Situation Rent At risk of losing current housing? No Satisfied with current living situation? Yes Comments PT lives with her 17 y/o daughter and the family dog. Food/Weight/Diet Expectations of change Initial Goal to lose 10% of your weight before surgery, which is about 25lbs. Ultimate weight goal: 230lbs before surgery. PT started at 254Lbs, current weight 240Lbs. Patient goals are to improve her mindset and stop overeating. PT is implementing the following: Current meal plan: 3 shakes and 1 meal (7fs of salad/7fs of protein). Using almond milk. Exercise plan: exercise 5 times at week burn 400cal. She tries to go during the week. History/Relationship with food Example of meals before starting the program: Breakfast: Lunch: Dinner: Snacks: Drinks/Liquids: History/Relationship with weight PT reports she has always been obese. In the last 10 years, the patient's Lowest weight was 240Lbs, according to records she was 273Lbs in 2020 but she reported to be over 300Lbs couple years ago. History/Relationship with dieting Different diets (ketto, intermittent fasting) and portion control plans. Visits with commercial correspondent [facility] in 2020. Social History Family history and relationship PT is a single mother of 1. PT has 2 siblings, a sister and a brother. Mother alive, dad . PT reports she has good family relationships, however she doesn't have communication with her brother. Parental/Familial textile science technician obligations 17 year old daughter. Developmental history and status None reported. Social support Daughter, mom, sister and her best friend. Community support PCP, therapist. [employer]/Spirituality Sabian[employer]. Cultural/Ethnic information PT is from [place]. Moved to [place] 16 years ago after separation from daughter's father. PT is mainly Pashto-speaker, but does some citizen of [place]. Legal Involvement and History Current or historical involvement with the legal system? None reported. Education Highest grade completed Associate degree. Preferred learning style Verbal Currently enrolled in educational program? No Interested in further educational program? No Educational Interests/Skills Health care. Employment Employment Status Unemployed (since moved to [place].) Wants help to find employment? No Meaningful activities Family activities. Financial Situation Describe current financial situation Occasional struggle Financial assistance? Food [place] and [employer] Service Service? No Mental Health and Addiction Treatment Current/Past substance abuse? No Comments Alcohol: on special occasions, 2-3 times ay year, does 3-4 cocktails. Cigarettes/Tobacco: None. Cannabis/Edibles: None. Current/Past addictive behavior concerns? No Psychiatric history PT is attending counseling via telehealth 1-2 times at month, at current place in [place] about 1 year ago. She started counseling services about 6 years ago due to anxiety and symptoms of depression. Currently takes Paroxetine 30mg for anxiety prescribed by her PCP. She started this medication about 6 or 7 years ago. Per assessment the patient has never had a full depressive episode, she mostly has lapses with sadness that last about a day. When she feels anxious she has sleeping issues at night, however she denied any negative or catastrophic think ing. She also don't have any triggers, most of the time can de random things and might wake up any day feeling sad or and fidgety or uneasy. PT denies ever been in crisis or hospitalized for mental health, also denied any history or current concern with SI/SA, self-harm or other harm. Medical and Physical Health Summary Additional Medical History not covered in history None additional. Sexual History concerns None reported Physical exam in the last year? Yes Pain Screening Current pain? No Pain in the last few months? No Medications Is the patient compliant with medications? Yes Does the patient have Fair Guardian in place? Not applicable Does the patient use complimentary health approaches? No Trauma/Abuse History History of trauma? No Questionnaires PHQ-9 Over the last 2 weeks, how often have you been bothered by any of the following problems? 1. Little interest or pleasure in doing things: more than half the days 2. Feeling down, depressed, or hopeless: nearly every day 3. Trouble falling or staying asleep, or sleeping too much: nearly every day 4. Feeling tired or having little energy: nearly every day 5. Poor appetite or overeating: nearly every day 6. Feeling bad about yourself - or that you are a failure or have let yourself or your family down: more than half the days 7. Trouble concentrating on things, such as reading the newspaper or watching television: more than half the days 8. Moving or speaking so slowly that other people could have noticed. Or the opposite - being so fidgety or restless that you have been moving around a lot more than usual: not at all 9. Thoughts that you would be better off or of hurting yourself in some way: not at all Total score: 18 Depression Screening Interpretation: Positive (Scores obtained at initial isabel at program on 03/2024 - This will be administered again at next visit ) Depression S creening Follow-up: Existing condition Depression Screening Done: Yes Source: Developed by Drs. Irvin Celeste, Micaela Drew, Ignacio Shah and colleagues, with an educational sayra from [employer]. Binge Eating Scale Group 1 A. I don't feel self-conscious about my wt. or body size when I'm with others. B. I feel concerned about how I look to others, but it normally does not make me fell disappointed with myself C. I do get self-conscious about my appearance and wt. which makes me feel disappointed in myself. D. I feel very self-conscious about my wt. and frequently I feel intense shame and disgust for myself. I try to avoid social contacts because of my self- consciousness. Response Group 1: C Group 2 A. I don't have any difficulty eating slowly in the proper manner. B. Although I seem to gobble down foods, I don't end up feeling stuffed because of eating to much. C. At times, I tend to eat quickly and then, I feel uncomfortably full afterwards. D. I have the habit of bolting down my food, without really chewing it. When this happens I usually feel uncomfortably stuffed because I've eaten to much. Response Group 2: B Group 3 A. I feel capable to control my eating urges when I want to. B. I feel like I have failed to control my eating more than the average person. C. I feel utterly helpless when it comes to feeling in control of my eating urges. D. Because I feel so helpless about controlling my eating I have become very desperate about trying to get control. Response Group 3: C Group 4 A. I don't have the habit of eating when I'm bored. B. I sometimes eat when I'm bored, but often I'm able to get busy and get my mind off food. C. I have a regular habit of eating when I'm bored, but occasionally, I can use some other activity to get my mind off eating. D. I have a strong habit of eating when I'm bored. Nothing seems to help me breath the habit. Response Group 4: C Group 5 A. I'm usually physically hungry when I eat something. B. Occasionally, I eat something on impulse even though I really am not hungry. C. I have the regular habit of eating foods, that I might not really enjoy, to satisfy a hungry feeling even though physically, I don't need the food. D. Although I'm not physically hungry, I get a hungry feeling in my mouth that only seems to be satisfied when I eat a food, like sandwich, that fills my mouth. Sometimes, when I eat the food to satisfy my mouth hunger, I then spit the food out so I won't gain weight. Response Group 5: B Group 6 A. I don't feel any guilt or self-hate after I overeat. B. After I overeat, occasionally I feel guilt or self-hate. C. Almost all the time I experience strong guilt or self-hate after I overeat. Response Group 6: B Group 7 A. I don't lose total control of my eating when dieting even after periods when I overeat. B. Sometimes when I eat a forbidden food on a diet, I feel like I blew it and eat even more. C. Frequently, I have the habit of saying to myself, I've blown it now, why not go all the way, when I overeat on a diet. When that happens I eat more. D. I have a regular habit of starting a strict diets for myself but I break the diets by going on an eating binge. My life seems to be either a feast or famine. Response Group 7: B Group 8 A. I rarely eat so much food that I feel uncomfortably stuffed afterwards. B. Usually about once a month, I each such a quantity of food, I end up feeling very stuffed. C. I have regular periods during the month when I eat large amounts of food, either at mealtime or at snacks. D. I eat so much food that I regularly feel quite uncomfortable after eating and sometimes a bit nauseous. Response Group 8: C Group 9 A. My level of calorie intake does not go up very high or go down very low on a regular basis. B. Sometimes after I overeat, I will try to reduce my caloric intake to almost nothing to compensate for the excess calories I've eaten. C. I have a regular habit of overeating during the night. It seems that my routine is not to be hungry in the morning but overeat in the evening. D. In my adult years, I have had week-long periods where I practically starve myself. This follows periods when I overeat. It seems I live a life of either feast or famine. Response Group 9: B Group 10 A. I usually am able to stop eating when I want to. I know when enough is enough. B. Every so often, I experience a compulsion to eat which I can't seem to control. C. Frequently, I experience strong urges to eat which I seem unable to control, but at other times I can control my eating urges. D. I feel incapable of controlling urges to eat. I have a fear of not being able to stop eating voluntarily. Response Group 10: C Group 11 A. I don't have any problem stopping eating when I feel full. B. I usually can stop eating when I feel full but occasionally overeat leaving me feeling uncomfortably stuffed. C. I have a problem stopping eating once I start and usually I feel uncomfortably stuffed after I eat a meal. D. Because I have a problem not being able to stop eating when I want, I sometimes have to induce vomiting to relieve my stuffed feeling. Response Group 11: C Group 12 A. I seem to eat just as much when I'm with others, Family social gatherings as when I'm by myself. B. Sometimes, when I'm with other persons, I don't eat as much as I want to eat because I'm self-conscious about my eating. C. Frequently, I eat only a small amount of food when others are present, because I'm very embarrassed about my eating. D. I feel so ashamed about overeating that I pick times to overeat when I know no one will see me. I feel like a closet eater. Response Group 12: D Group 13 A. I eat three meals a day with only an occasional between meal snack. B. I eat 3 meals a day, but I also normally snack between meals. C. When I am snacking heavily, I get in the habit of skipping regular meals. D. There are regular periods when I seem to be continually eating, with no planned meals. Response Group 13: C Group 14 A. I don't think much about trying to control unwanted eating urges. B. At least some of the time, I feel my thoughts are pre-occupied with trying to control my eating urges. C. I feel that frequently I spend much time thinking about how much I ate or about trying not to eat anymore. D. It seems to me that most of my waking hours are pre-occupied by thoughts about eating or not eating. I feel like I'm constantly struggling not to eat. Response Group 14: C Group 15 A. I don't think about food a great deal. B. I have strong craving for food but they last only for brief periods of time. C. I have days when I can't seem to think about anything else but food. D. Most of my days seem to be pre-occupied with thoughts about food. I feel like I live to eat. Response Group 15: C Group 16 A. I usually know whether or not I'm physically hungry. I take the right portion of food to satisfy me. B. Occasionally, I feel uncertain about knowing whether or not I'm physically hungry. A these times it's hard to know how much food I should take to satisfy me. C. Even though I might know how many calories I should eat, I don't have any idea what is a normal amount of food for me. Response Group 16: B Binge Eating Score: 27 Score less than 17 Minimal Risk Score between 18-26 Moderate Risk Score between 27-46 High Risk Assessment & Plan Assessment & Plan (1) Morbid obesity: Code(s): E66.01 - Morbid (severe) obesity due to excess calories (2) Depression: Code(s): F32.A - Depression, unspecified Qualifiers: Depression Type: unspecified Qualified Code(s): F32.A - Depression, unspecified (3) Anxiety disorder, unspecified: Code(s): F41.9 - Anxiety disorder, unspecified Qualifiers: Anxiety disorder type: unspecified anxiety disorder Qualified Code(s): F41.9 - Anxiety disorder, unspecified Plan PT will return in 1 week to finish assessment. BEs will be reviewed with patient in detail and PHQ-9 administered again at next visit. Next isabel: 07/03/2024 at 11am, via telehealth. Telehealth Telehealth Telehealth Platform: [employer] Location of provider rendering services: other Location of patient: address on file Patient Identification confirmed using: Name, : Yes Telehealth method: voice only Patient verbally consented to treatment: Yes Patient verbally consented to billing insurance company: Yes Patient informed of any privacy concerns related to visit: Yes Minutes spent on Phone/Video with Pt.: 55 (Start: 12:55pm, End time: 1:55pm) Coding Level of Care Code New Pt Tele Psytx >53 mins ([id number]) Patient Type New Diagnoses Morbid obesity E66.01 Depression, unspecified depression type F32.A Depression Type: unspecified Anxiety disorder, unspecified type F41.9 Anxiety disorder type: unspecified anxiety disorder Time Spent (min) 60 Comment Start: 12:55pm, End time: 1:55pm
== END ==
PROVIDERS: PCP Internal Medicine; Visit Provider Counselor Mental Health
DX: E66.01 Morbid (severe) obesity due to excess calories (principal); F32.A Depression, unspecified; F41.9 Anxiety disorder, unspecified
CPT/HCPCS: 90837

== ENCOUNTER → 2024-06-25 09:52 | Outpatient (BNVA) | payer OTHER, SELFPAY | PROVIDERS: PCP Internal Medicine; Visit Provider Counselor Mental Health ==

== ENCOUNTER → 2024-07-03 11:25 | Outpatient (BNVA) | payer OTHER, SELFPAY | PROVIDERS: PCP Internal Medicine; Visit Provider Counselor Mental Health | DX: E66.01 Morbid (severe) obesity due to excess calories (principal); Z71.3 Dietary counseling and surveillance; Z68.42 Body mass index [BMI] 45.0-49.9, adult | CPT/HCPCS: 99212 ==

== ENCOUNTER → 2024-07-03 11:25 | Outpatient (AMB) | payer OTHER, SELFPAY ==
--- NOTE | 2024-07-03 11:15 | MHC.WMTHER ---
Intake Intake Visit Reasons: VIDEO Intake Part 2 Allergies dulaglutide [From Trulicity] Adverse Reaction (Unknown, Verified 05/06/24 11:31) Itching insulin lispro [From Humalog U-100 Insulin] Adverse Reaction (Unknown, Verified 05/06/24 11:31) Rash Aspirin Allergy (Unknown, Uncoded 01/25/24 11:13) swelling Latex Allergy (Unknown, Uncoded 01/25/24 11:13) rash Metformin Allergy (Unknown, Uncoded 01/25/24 11:13) stomach upset Penicillin Allergy (Unknown, Uncoded 01/25/24 11:13) swelling [facility] Medical History Depression Hypertension Hyperlipidemia Uncontrolled type 2 diabetes mellitus with hyperglycemia Neuropathy Right sciatic nerve pain FLORENCIA (obstructive sleep apnea) Asthma Type 2 diabetes mellitus Morbid obesity History of deviated nasal septum Surgical History Hx of section Family History Father Multiple sclerosis Mother Diabetes mellitus Sister Lupus Brother No problems noted. Daughter No problems noted. Social History Alcohol intake: never Patient Tobacco Use Status: Never used Tobacco Behavioral Health Assessment Weight Management Therapy Therapy Notes Details PT is a years old F/M, who presents for a visit to complete assessment as part of surgical weight loss program. PT reports being interested in weight-loss surgery with the hopes to improve her health and control ongoing medical issues. PT disclosed she currently sees a therapist due to a history of anxiety and depression and takes medication prescribed by her PCP. Denies ever been in Crisis or inpatient for mental health, also denied any history or current concern with SI/SA, self-harm or other harm. PHQ-9 scores from today showed no active Sx of depression, however PT has a history of overeating and BES scores showed moderate risk for binge eating. PT has also disclosed she continues dealing with urges for food, cravings and food thoughts, although now she's aware of these and some strategies to distract she's not eating as she was before and is learning about differences in between hunger and cravings and as she's eating as scheduled then she feels her dinner is enough and satisfies her most of the time. Today we finished her assessment and she is not cleared yet, she will be seen 2 more times to be provided with tools to manage [id number] symptoms, in the meantime she will obtain letter from provider to support clearance and will continue doing meal/exercise plan as advised by [facility]-Provider. PT will also be been post-op for support. Presenting Concerns Referral Source [facility] Provider. PT started services again on 03/24/[address] Larose Reason for referral Completion of behavioral health assessment as part of process for weight-loss surgery. Precipitating Event Obesity. Living Situation Current Living Situation Rent At risk of losing current housing? No Satisfied with current living situation? Yes Comments PT lives with her 17 y/o daughter and the family dog. Food/Weight/Diet Expectations of change Initial Goal to lose 10% of your weight before surgery, which is about 25lbs. Ultimate weight goal: 230lbs before surgery. PT started at 254Lbs, current weight 240Lbs. Patient goals are to improve her mindset and stop overeating. PT is implementing the following: Current meal plan: 3 shakes and 1 meal (7fs of salad/7fs of protein). Using almond milk. Exercise plan: exercise 5 times at week burn 400cal. She tries to go to the gym during the week. History/Relationship with food PT reports that she noticed a major weight gain after she moved to the and also eating more junk and fast food after moving. She was used to repeat when having dinner. Growing up she was never used to eat veggies as part of her diet. Example of meals before starting the program: Breakfast: scramble eggs Lunch: skip - sometimes fast food or chips with a drink. Dinner: style. Rice, pork and beans most of the days. Snacks: chips, ice-cream Drinks/Liquids: 1 littler at day, 1 gallon of juice at day, 5 bottles of water at day. History/Relationship with weight PT reports she has always been obese. In the last 10 years, the patient's Lowest weight was 240Lbs, according to records she was 273Lbs in 2020 but she reported to be over 300Lbs couple years ago. History/Relationship with dieting Different diets (ketto, intermittent fasting) and portion control plans. 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 Binge Eating Do you frequently eat large amounts of food in short periods of time, not feeling physically hungry? Yes Do you feel out of control when you eat a large amount of food in a short period of time? Yes Do you eat large amounts of food rapidly and typically alone? Yes Night Eating Do you wake up at least once during the night to eat? No If you wake up in the night, do you find that it is necessary to eat something in order to fall back asleep? No Do you have little or no appetite in the morning and feel very hungry in the evening, often overeating between dinner and when you go to bed? No Social History Family history and relationship PT is a single mother of 1. PT has 2 siblings, a sister and a brother. Mother alive, dad . PT reports she has good family relationships, however she doesn't have communication with her brother. Parental/Familial alignment specialist obligations 17 year old daughter. Developmental history and status None reported. Social support Daughter, mom, sister and her best friend. Community support PCP, therapist. Yazidism/Spirituality Yarsanism. Cultural/Ethnic information PT is from [place]. Moved to [place] 16 years ago after separation from daughter's father. PT is mainly Wolof-speaker, but does some slovenian. Legal Involvement and History Current or historical involvement with the legal system? None reported. Education Highest grade completed Associate degree. Preferred learning style Verbal Currently enrolled in educational program? No Interested in further educational program? No Educational Interests/Skills Health care. Employment Employment Status Unemployed (since moved to [place].) Wants help to find employment? No Meaningful activities Family activities. Financial Situation Describe current financial situation Occasional struggle Financial assistance? Food [place] and [employer] Service Service? No Mental Health and Addiction Treatment Current/Past substance abuse? No Comments Alcohol: on special occasions, 2-3 times ay year, does 3-4 cocktails. Cigarettes/Tobacco: None. Cannabis/Edibles: None. Current/Past addictive behavior concerns? No Psychiatric history PT is attending counseling via telehealth 1-2 times at month, at current place in [place] about 1 year ago. She started counseling services about 6 years ago due to anxiety and symptoms of depression. Currently takes Paroxetine 30mg for anxiety prescribed by her PCP. She started this medication about 6 or 7 years ago. Per assessment the patient has never had a full depressive episode, she mostly has lapses with sadness that last about a day. When she feels anxious she has sleeping issues at night, however she denied any negative or catastrophic thinking. She also don't have any triggers, most of the time can de random things and might wake up any day feeling sad or and fidgety or uneasy. PT denies ever been in crisis or hospitalized for mental health, also denied any history or current concern with SI/SA, self-harm or other harm. Medical and Physical Health Summary Additional Medical History not covered in history None additional. Sexual History concerns None reported Physical exam in the last year? Yes Pain Screening Current pain? No Pain in the last few months? No Medications Is the patient compliant with medications? Yes Does the patient have Fair Guardian in place? Not applicable Does the patient use complimentary health approaches? No Trauma/Abuse History History of trauma? No Questionnaires PHQ-9 Over the last 2 weeks, how often have you been bothered by any of the following problems? 1. Little interest or pleasure in doing things: not at all 2. Feeling down, depressed, or hopeless: not at all 3. Trouble falling or staying asleep, or sleeping too much: several days (PT reports she has always had sleeping issues and she used sleep meds. ) 4. Feeling tired or having little energy: not at all 5. Poor appetite or overeating: not at all 6. Feeling bad about yourself - or that you are a failure or have let yourself or your family down: several days (due to weight-loss challenges) 7. Trouble concentrating on things, such as reading the newspaper or watching television: not at all 8. Moving or speaking so slowly that other people could have noticed. Or the opposite - being so fidgety or restless that you have been moving around a lot more than usual: not at all 9. Thoughts that you would be better off or of hurting yourself in some way: not at all Total score: 2 Depression Screening Interpretation: Negative Depression Screening Done: Yes 14213 - PHQ-9 Billing: Yes Source: Developed by Drs. Irvin Celeste, Micaela Drew, Ignacio Shah and colleagues, with an educational sayra from [employer]. Binge Eating Scale Group 1 A. I don't feel self-conscious about my wt. or body size when I'm with others. B. I feel concerned about how I look to others, but it normally does not make me fell disappointed with myself C. I do get self-conscious about my appearance and wt. which makes me feel disappointed in myself. D. I feel very self-conscious about my wt. and frequently I feel intense shame and disgust for myself. I try to avoid social contacts because of my self-consciousness. Response Group 1: C Group 2 A. I don't have any difficulty eating slowly in the proper manner. B. Although I seem to gobble down foods, I don't end up feeling stuffed because of eating to much. C. At times, I tend to eat quickly and then, I feel uncomfortably full afterwards. D. I have the habit of bolting down my food, without really chewing it. When this happens I usually feel uncomfortably stuffed because I've eaten to much. Response Group 2: B Group 3 A. I feel capable to control my eating urges when I want to. B. I feel like I have failed to control my eating more than the average person. C. I feel utterly helpless when it comes to feeling in control of my eating urges. D. Because I feel so helpless about controlling my eating I have become very desperate about trying to get control. Response Group 3: C Group 4 A. I don't have the habit of eating when I'm bored. B. I sometimes eat when I'm bored, but often I'm able to get busy and get my mind off food. C. I have a regular habit of eating when I'm bored, but occasionally, I can use some other activity to get my mind off eating. D. I have a strong habit of eating when I'm bored. Nothing seems to help me breath the habit. Response Group 4: C Group 5 A. I'm usually physically hungry when I eat something. B. Occasionally, I eat something on impulse even though I really am not hungry. C. I have the regular habit of eating foods, that I might not really enjoy, to satisfy a hungry feeling even though physically, I don't need the food. D. Although I'm not physically hungry, I get a hungry feeling in my mouth that only seems to be satisfied when I eat a food, like sandwich, that fills my mouth. Sometimes, when I eat the food to satisfy my mouth hunger, I then spit the food out so I won't gain weight. Response Group 5: B Group 6 A. I don't feel any guilt or self-hate after I overeat. B. After I overeat, occasionally I feel guilt or self-hate. C. Almost all the time I experience strong guilt or self-hate after I overeat. Response Group 6: B Group 7 A. I don't lose total control of my eating when dieting even after periods when I overeat. B. Sometimes when I eat a forbidden food on a diet, I feel like I blew it and eat even more. C. Frequently, I have the habit of saying to myself, I've blown it now, why not go all the way, when I overeat on a diet. When that happens I eat more. D. I have a regular habit of starting a strict diets for myself but I break the diets by going on an eating binge. My life seems to be either a feast or famine. Response Group 7: B Group 8 A. I rarely eat so much food that I feel uncomfortably stuffed afterwards. B. Usually about once a month, I each such a quantity of food, I end up feeling very stuffed. C. I have regular periods during the month when I eat large amounts of food, either at mealtime or at snacks. D. I eat so much food that I regularly feel quite uncomfortable after eating and sometimes a bit nauseous. Response Group 8: C Group 9 A. My level of calorie intake does not go up very high or go down very low on a regular basis. B. Sometimes after I overeat, I will try to reduce my caloric intake to almost nothing to compensate for the excess calories I've eaten. C. I have a regular habit of overeating during the night. It seems that my routine is not to be hungry in the morning but overeat in the evening. D. In my adult years, I have had week-long periods where I practically starve myself. This follows periods when I overeat. It seems I live a life of either feast or famine. Response Group 9: B Group 10 A. I usually am able to stop eating when I want to. I know when enough is enough. B. Every so often, I experience a compulsion to eat which I can't seem to control. C. Frequently, I experience strong urges to eat which I seem unable to control, but at other times I can control my eating urges. D. I feel incapable of controlling urges to eat. I have a fear of not being able to stop eating voluntarily. Response Group 10: C Group 11 A. I don't have any problem stopping eating when I feel full. B. I usually can stop eating when I feel full but occasionally overeat leaving me feeling uncomfortably stuffed. C. I have a problem stopping eating once I start and usually I feel uncomfortably stuffed after I eat a meal. D. Because I have a problem not being able to stop eating when I want, I sometimes have to induce vomiting to relieve my stuffed feeling. Response Group 11: C Group 12 A. I seem to eat just as much when I'm with others, Family social gatherings as when I'm by myself. B. Sometimes, when I'm with other persons, I don't eat as much as I want to eat because I'm self-conscious about my eating. C. Frequently, I eat only a small amount of food when others are present, because I'm very embarrassed about my eating. D. I feel so ashamed about overeating that I pick times to overeat when I know no one will see me. I feel like a closet eater. Response Group 12: D Group 13 A. I eat three meals a day with only an occasional between meal snack. B. I eat 3 meals a day, but I also normally snack between meals. C. When I am snacking heavily, I get in the habit of skipping regular meals. D. There are regular periods when I seem to be continually eating, with no planned meals. Response Group 13: C Group 14 A. I don't think much about trying to control unwanted eating urges. B. At least some of the time, I feel my thoughts are pre-occupied with trying to control my eating urges. C. I feel that frequently I spend much time thinking about how much I ate or about trying not to eat anymore. D. It seems to me that most of my waking hours are pre-occupied by thoughts about eating or not eating. I feel like I'm constantly struggling not to eat. Response Group 14: C Group 15 A. I don't think about food a great deal. B. I have strong craving for food but they last only for brief periods of time. C. I have days when I can't seem to think about anything else but food. D. Most of my days seem to be pre-occupied with thoughts about food. I feel like I live to eat. Response Group 15: C Group 16 A. I usually know whether or not I'm physically hungry. I take the right portion of food to satisfy me. B. Occasionally, I feel uncertain about knowing whether or not I'm physically hungry. A these times it's hard to know how much food I should take to satisfy me. C. Even though I might know how many calories I should eat, I don't have any idea what is a normal amount of food for me. Response Group 16: B Binge Eating Score: 27 Score less than 17 Minimal Risk Score between 18-26 Moderate Risk Score between 27-46 High Risk Assessment & Plan Assessment & Plan (1) Morbid obesity: Code(s): E66.01 - Morbid (severe) obesity due to excess calories (2) Depression: Code(s): F32.A - Depression, unspecified Qualifiers: Depression Type: unspecified Qualified Code(s): F32.A - Depression, unspecified (3) Anxiety disorder, unspecified: Code(s): F41.9 - Anxiety disorder, unspecified Plan PT not cleared today. We will meet 2 more times to provide support with ongoing issues related to cravings, food thoughts and adjustment to new eating habits. She has been requested to provide a letter from provider with diagnosis, frequency of visits, prognosis and safety concerns. Once patient is cleared she will continue meeting with me on a monthly basis for support and work on her commitment with long-term life changes for a successful weight-loss journey. Next isabel: 07/24/24 at 10am, Telehealth. Telehealth Telehealth Telehealth Platform: [employer] Location of provider rendering services: other Location of patient: address on file Patient Identification confirmed using: Name, : Yes Telehealth method: voice only Patient verbally consented to treatment: Yes Patient verbally consented to billing insurance company: Yes Patient informed of any privacy concerns related to visit: Yes Minutes spent on Phone/Video with Pt.: 50 Coding Level of Care Code Established Pt Tele Psytx >53 mins (00276) Patient Type Established Diagnoses Morbid obesity E66.01 Depression, unspecified depression type F32.A Depression Type: unspecified Anxiety disorder, unspecified F41.9 Time Spent (min) 50 Comment start time: 11:10am, End time: 12pm
== END ==
PROVIDERS: PCP Internal Medicine; Visit Provider Counselor Mental Health
DX: E66.01 Morbid (severe) obesity due to excess calories (principal); F32.A Depression, unspecified; F41.9 Anxiety disorder, unspecified
CPT/HCPCS: 90837

== ENCOUNTER 2024-07-03 13:34 | Outpatient (AMB) | payer OTHER, SELFPAY ==
--- NOTE | 2024-07-03 13:36 | A.OFFVIS_ITS ---
VS Expanded 07/03/24 13:40 BP 121/69 Blood Pressure Location Lt brachial Blood Pressure Position Sitting Pulse 77 Pulse Source Pulse Oximeter Pulse Oximetry 98 Height 5 ft Weight 240 lb BMI 46.9 Body Fat % 48.3 Body Fat Mass 116.0 Fat Free Mass 123.8 Visceral Fat Rating 16.0 Body Water % 36.9 Body Water Mass 88.4 Muscle Mass/Score 117.8 Basal Metabolic Rate/Score 1,763 Intake Visit Reasons: (OV) F/U SWL Intake Note: Ephraim presents in the office as a follow up SWL. Superintendent Division Required: Yes Superintendent Division Services: Superintendent Division Present Superintendent Division Name: hospital cmi Allergies dulaglutide [From Trulicity] Adverse Reaction (Unknown, Verified 07/03/24 13:41) Itching insulin lispro [From Humalog U-100 Insulin] Adverse Reaction (Unknown, Verified 07/03/24 13:41) Rash Aspirin Allergy (Unknown, Uncoded 07/03/24 13:41) swelling Latex Allergy (Unknown, Uncoded 07/03/24 13:41) rash Metformin Allergy (Unknown, Uncoded 07/03/24 13:41) stomach upset Penicillin Allergy (Unknown, Uncoded 07/03/24 13:41) swelling Medication List - Last Reconciled 07/03/24 by ERNESTINE Osman atorvastatin 20 mg PO DAILY ferrous sulfate (FeroSul) 325 mg PO DAILY gabapentin 600 mg PO BEDTIME insulin aspart U-100 (Novolog FlexPen U-100 Insulin aspart) 10 units subcut DAILY insulin pump cart,cont inf,BT (Omnipod Dash Pods (Gen 4) subcutaneous cartridge) As directed lisinopril 2.5 mg PO DAILY loratadine (Allergy Relief (loratadine)) 10 mg PO DAILY paroxetine HCl 30 mg PO DAILY tirzepatide (Mounjaro) 5 mg (0.5 mL) subcut QWEEK HPI Comments Details: Patient is a pleasant 49-year-old female who returns to the office today in follow-up. She was initially seen on 01/19/2024 with a weight of 254 lb and a BMI of 47.2. Weight today is 240 lb with a BMI of 46.9. This corresponds to a 14 lb weight loss or 5.5% total body weight loss. She is using the [employer] isabel. Last changed the plan 2 months ago Meal plan 10-1130am shake, pure protein 1 scoop 4-6 pm shake 8 pm meal 7 forks protein and 7 forks veg 10 pm shake Exercise: 10 min stationary bike, weights, treadmill 5 days per week, [address] [facility] Medical History Depression Hypertension Hyperlipidemia Uncontrolled type 2 diabetes mellitus with hyperglycemia Neuropathy Right sciatic nerve pain FLORENCIA (obstructive sleep apnea) Asthma Type 2 diabetes mellitus Morbid obesity History of deviated nasal septum Surgical History Hx of section Family History Father Multiple sclerosis Mother Diabetes mellitus Sister Lupus Brother No problems noted. Daughter No problems noted. Social History Alcohol intake: never Patient Tobacco Use Status: Never used Tobacco Physical Exam Vital Signs: Last Vital Signs Pulse 77 07/03/24 13:40 BP 121/69 07/03/24 13:40 Pulse Ox 98 07/03/24 13:40 Const General: healthy appearing and no acute distress Resp Effort & Inspection: normal respiratory effort Auscultation: clear to auscultation bilaterally Cardio Rate: regular rate Rhythm: regular rhythm GI Auscultation: normal bowel sounds Extrem General: Yes normal to inspection Assessment & Plan Assessment & Plan (1) Morbid obesity: Code(s): E66.01 - Morbid (severe) obesity due to excess calories Category: Medical Plan: Patient was encouraged to continue to use the [employer] isabel. I have encouraged her to go back into the isabel and restructure her meal plan based on he r current weight as she has not done this for 2 months. Additionally, discussed the importance of exercise and it is impact on her weight loss. Encouraged her to increase her calories burned to 400 per day and increase her days at the gym to 6. She states that she will be able to do so. Encouraged to continue to text weight weekly as well as if any questions or concerns. She has done quite well with her insulin demand, decreasing from 50 units daily to 10 units daily. She is quite happy about this. Encouraged to continue to monitor blood sugars closely as her insulin requirements are going to continue to decrease. Follow-up in the office as scheduled.
[2024-07-03 13:40] VITALS: BP 121/69; PULSE 77; O2SAT 98; BMI 46.9
== END 2024-07-03 14:12 | disposition home or self-care (01) ==
PROVIDERS: PCP Internal Medicine; Visit Provider Physician Assistant Surgical
DX: E66.01 Morbid (severe) obesity due to excess calories (principal); Z68.42 Body mass index [BMI] 45.0-49.9, adult
CPT/HCPCS: 99213

== ENCOUNTER 2024-07-24 10:17 | Outpatient (AMB) | payer OTHER, SELFPAY ==
--- NOTE | 2024-07-24 10:05 | A.OFFWM_ITS ---
Intake Intake Visit Reasons: VIDEO BH F/U Allergies dulaglutide [From Trulicity] Adverse Reaction (Unknown, Verified 07/03/24 13:41) Itching insulin lispro [From Humalog U-100 Insulin] Adverse Reaction (Unknown, Verified 07/03/24 13:41) Rash Aspirin Allergy (Unknown, Uncoded 07/03/24 13:41) swelling Latex Allergy (Unknown, Uncoded 07/03/24 13:41) rash Metformin Allergy (Unknown, Uncoded 07/03/24 13:41) stomach upset Penicillin Allergy (Unknown, Uncoded 07/03/24 13:41) swelling [facility] Medical History Depression Hypertension Hyperlipidemia Uncontrolled type 2 diabetes mellitus with hyperglycemia Neuropathy Right sciatic nerve pain FLORENCIA (obstructive sleep apnea) Asthma Type 2 diabetes mellitus Morbid obesity History of deviated nasal septum Surgical History Hx of section Family History Father Multiple sclerosis Mother Diabetes mellitus Sister Lupus Brother No problems noted. Daughter No problems noted. Social History Alcohol intake: never Patient Tobacco Use Status: Never used Tobacco Behavioral Health Assessment Weight Management Therapy Therapy Notes Details PT presents for a follow up visit as part of the [facility] program via Tele health. Subjective: PT reports she has been doing well and most recent weight 234Lbs, she is 4Lbs away from the initial goal (230Lbs) to have surgery. PT is attending the gym 6 days at weeks and does a combination of cardio and strength workout. She has decreased insulin dosage as her sugar readings are better. PT is doing 3 shakes and 1 meals at day. Objective/Interventions: Today we focused on mindset and ways to work about her relationship with food. We identified some responses (mental/emotional/behavioral/physiological) that mediates eating behavior and attitude/commitment with weight-loss journey. PT also provided with the information from her current therapist, she has not signed NIEVES so, in order to communicate/consult with provider he need to obtain written consent. Assessment: PT's mental status is WNL, no risk reported/identified. Plan: We will follow up in 2-3 weeks for support and to finish clearance once we get letter or communicate with her MH-Provider. Presenting Concerns Referral Source P Provider. PT started services again on 03/24/[address] Larose Reason for referral Completion of behavioral health assessment as part of process for weight-loss surgery. Precipitating Event Obesity. Assessment & Plan Assessment & Plan (1) Morbid obesity: Code(s): E66.01 - Morbid (severe) obesity due to excess calories (2) Depression: Code(s): F32.A - Depression, unspecified Qualifiers: Depression Type: unspecified Qualified Code(s): F32.A - Depression, unspecified (3) Anxiety disorder, unspecified: Code(s): F41.9 - Anxiety disorder, unspecified Plan Therapist: Sondra Chahal [facility] [address], [address]. [place], [place] Email: [email or web address] PT will come to the office tomorrow to sign a NIEVES for this provider to communicate with her MH provider (Above information) and finish her BH clearance. Final PHQ-9 will be administered at next visit. Next isabel: 08/13/2024 Telehealth Telehealth Telehealth Platform: [employer] Location of provider rendering services: other Location of patient: address on file Patient Identification confirmed using: Name, : Yes Telehealth method: voice only Patient verbally consented to treatment: Yes Patient verbally consented to billing insurance company: Yes Patient informed of any privacy concerns related to visit: Yes Minutes spent on Phone/Video with Pt.: 55 Coding Level of Care Code Established Pt Psytx >53 mins (37983) Patient Type Established Diagnoses Morbid obesity E66.01 Depression, unspecified depression type F32.A Depression Type: unspecified Anxiety disorder, unspecified F41.9 Time Spent (min) 55
== END 2024-07-24 11:00 | disposition home or self-care (01) ==
LOC: HO.HBST 10:17
PROVIDERS: PCP Internal Medicine; Visit Provider Counselor Mental Health
DX: F32.1 Major depressive disorder, single episode, moderate (principal); F41.9 Anxiety disorder, unspecified; E66.01 Morbid (severe) obesity due to excess calories
CPT/HCPCS: 90837

== ENCOUNTER → 2024-07-24 10:17 | Outpatient (BNVA) | payer OTHER, SELFPAY | PROVIDERS: PCP Internal Medicine; Visit Provider Counselor Mental Health ==

== ENCOUNTER 2024-07-28 08:02 | Outpatient (AMB) | payer OTHER, SELFPAY ==
--- NOTE | 2024-07-28 08:46 | A.OFFVIS_ITS ---
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* Industrial Safety And Health Manager Required: Yes Industrial Safety And Health Manager Services: Industrial Safety And Health Manager Present Information Interpreted: clinical only Allergies dulaglutide [From Trulicity] Adverse Reaction (Unknown, Verified 07/03/24 13:41) Itching insulin lispro [From Humalog U-100 Insulin] Adverse Reaction (Unknown, Verified 07/03/24 13:41) Rash Aspirin Allergy (Unknown, Uncoded 07/03/24 13:41) swelling Latex Allergy (Unknown, Uncoded 07/03/24 13:41) rash Metformin Allergy (Unknown, Uncoded 07/03/24 13:41) stomach upset Penicillin Allergy (Unknown, Uncoded 07/03/24 13:41) swelling HPI HPI TV Follow Up SWL *ELECTRIC RANGE PREPARER*: Details: Start time: 8.35am, End time: 9.05am ?I spent 25 minutes speaking with the patient on the phone plus an additional 5 minutes reviewing and updating records for a total of 30 minutes HPI Comments Details: Overall weight loss: 19.4lbs, or 7.64% TBWL Is doing 3 Pure protein shakes (1 scoop each in 8oz Fairlife milk) and one meal (7 forks protein and 7 forks vegetables) Exercise: 10 min stationary bike for 6 days, weights, treadmill 6 days per week for 100 nicolás [facility] Medical History Depression Hypertension Hyperlipidemia Uncontrolled type 2 diabetes mellitus with hyperglycemia Neuropathy Right sciatic nerve pain FLORENCIA (obstructive sleep apnea) Asthma Type 2 diabetes mellitus Morbid obesity History of deviated nasal septum Surgical History Hx of section Family History Father Multiple sclerosis Mother Diabetes mellitus Sister Lupus Brother No problems noted. Daughter No problems noted. Social History Alcohol intake: never Patient Tobacco Use Status: Never used Tobacco Telehealth Telehealth Telehealth Platform: Telephone Location of provider rendering services: practice address Location of patient: address on file Patient Identification confirmed using: Name, : Yes Telehealth method: voice only Patient verbally consented to treatment: Yes Patient verbally consented to billing insurance company: Yes Patient informed of any privacy concerns related to visit: Yes Minutes spent on Phone/Video with Pt.: 35 Assessment & Plan Assessment & Plan (1) Morbid obesity: Code(s): E66.01 - Morbid (severe) obesity due to excess calories Category: Medical Plan: 2. Change meal plan to 3 Pure protein shakes (1/4 QUARTER scoop each in 8oz Fairlife milk) and one meal (7 forks protein and 7 forks vegetables). 3. Please send me a picture of your meal plate daily after you measure it but before you eat it 4. Exercise: Continue stationary bike but increase the calories to 120 nicolás per day, 6 days per week and treadmill 6 days per week for 200 nicolás, for a total of 320 calories per day 5. Send me weight measurements weekly on Mondays
[2024-07-28 08:57] VITALS: BMI 45.8
== END 2024-07-28 09:06 | disposition home or self-care (01) ==
LOC: HO.HBS 08:02
PROVIDERS: PCP Internal Medicine; Visit Provider Surgery
DX: E66.01 Morbid (severe) obesity due to excess calories (principal)
CPT/HCPCS: 99214

== ENCOUNTER → 2024-07-28 08:02 | Outpatient (BNVA) | payer OTHER, SELFPAY | PROVIDERS: PCP Internal Medicine; Visit Provider Surgery ==

== ENCOUNTER → 2024-08-13 11:18 | Outpatient (BNVA) | payer OTHER, SELFPAY | PROVIDERS: PCP Internal Medicine; Visit Provider Counselor Mental Health ==

== ENCOUNTER → 2024-08-13 11:18 | Outpatient (AMB) | payer OTHER, SELFPAY ==
--- NOTE | 2024-08-13 11:05 | MHC.WMTHER ---
Intake Intake Visit Reasons: VIDEO BH F/U Allergies dulaglutide [From Trulicity] Adverse Reaction (Unknown, Verified 07/03/24 13:41) Itching insulin lispro [From Humalog U-100 Insulin] Adverse Reaction (Unknown, Verified 07/03/24 13:41) Rash Aspirin Allergy (Unknown, Uncoded 07/03/24 13:41) swelling Latex Allergy (Unknown, Uncoded 07/03/24 13:41) rash Metformin Allergy (Unknown, Uncoded 07/03/24 13:41) stomach upset Penicillin Allergy (Unknown, Uncoded 07/03/24 13:41) swelling PFSH Medical History Depression Hypertension Hyperlipidemia Uncontrolled type 2 diabetes mellitus with hyperglycemia Neuropathy Right sciatic nerve pain FLORENCIA (obstructive sleep apnea) Asthma Type 2 diabetes mellitus Morbid obesity History of deviated nasal septum Surgical History Hx of section Family History Father Multiple sclerosis Mother Diabetes mellitus Sister Lupus Brother No problems noted. Daughter No problems noted. Social History Alcohol intake: never Patient Tobacco Use Status: Never used Tobacco Behavioral Health Assessment Weight Management Therapy Therapy Notes Details Subjective: PT reports she has been doing well in general. Denies feeling down, worries, anxious or depressed. Reports sleeping well and continue folllowing provider recommendations around meal/exercise plan. PT also reports a market decrease in cravings and/or food thoughts. PT feels happy about her weight-loss and daily progress. Objective: PT presents for a follow up visit via Telehealth. Discussed functioning and routine. reviewed meal/exercise plan. PHQ-9 administered and MSE performed. Worked in Sx management, strategies to continue making changes in lifestyle and eating behaviors in the long-term for a successful weight-loss. Used CBT-based interventions. Coping plan developed and after surgery plan discussed. Assessment/Response: Mental status: WNL. Risk reported/identified: None. PHQ-9 administered and sores indicate no active Sx of depression. PT was open, active and engaged and responded well to modality. Plan: Provider has been unable to reach patient's MH provider. She has been cleared today by this provider due to her progress, reflected on weight-loss, achieving the 10% required prior to surgery, her commitment with program evidenced by following meal plan and following instructions by provide; Also, scores from PHQ-9 indicate no active Sx with depression and MSE indicate patient's functioning is not impaired and no Safety concerns have been reported or identified. PT will follow up with this provider after surgery and she will continue meeting with her therapist on a bi-weekly basis. Food/Weight/Diet Expectations of change PT reached the 10% required before weight-loss surgery . -Start weight: 254Lbs -Most recent weight: 230Lbs New meal plan: 3 Pure protein shakes (1/4 QUARTER scoop each in 8oz Fairlife milk/ Pt using almond-coconut milk) and one meal (7 forks protein and 7 forks vegetables). Exercise plan: stationary bike but increase the calories to 120 nicolás per day, 6 days per week and treadmill 6 days per week for 200 nicolás, for a total of 320 calories per day Questionnaires PHQ-9 Over the last 2 weeks, how often have you been bothered by any of the following problems? 1. Little interest or pleasure in doing things: not at all 2. Feeling down, depressed, or hopeless: not at all 3. Trouble falling or staying asleep, or sleeping too much: not at all 4. Feeling tired or having little energy: not at all 5. Poor appetite or overeating: not at all 6. Feeling bad about yourself - or that you are a failure or have let yourself or your family down: not at all 7. Trouble concentrating on things, such as reading the newspaper or watching television: not at all 8. Moving or speaking so slowly that other people could have noticed. Or the opposite - being so fidgety or restless that you have been moving around a lot more than usual: not at all 9. Thoughts that you would be better off or of hurting yourself in some way: not at all Total score: 0 Depression Screening Interpretation: Negative Depression Screening Done: Yes 74600 - PHQ-9 Billing: Yes Source: Developed by Drs. Irvin Celeste, Micaela Drew, Ignacio Shah and colleagues, with an educational sayra from [employer]. Assessment & Plan Assessment & Plan (1) Morbid obesity: Code(s): E66.01 - Morbid (severe) obesity due to excess calories (2) Depression: Code(s): F32.A - Depression, unspecified Qualifiers: Depression Type: unspecified Qualified Code(s): F32.A - Depression, unspecified (3) Anxiety disorder, unspecified: Code(s): F41.9 - Anxiety disorder, unspecified Plan PT has been cleared from BH standpoint and will be seen post-op for support. Next isabel:2-4 weeks post-op Telehealth Telehealth Telehealth Platform: [employer] Location of provider rendering services: other Location of patient: address on file Patient Identification confirmed using: Name, : Yes Telehealth method: voice only Patient verbally consented to treatment: Yes Patient verbally consented to billing insurance company: Yes Patient informed of any privacy concerns related to visit: Yes Minutes spent on Phone/Video with Pt.: 45 Coding Level of Care Code Established Pt Tele Psytx 45 mins (68335) Patient Type Established Diagnoses Morbid obesity E66.01 Depression, unspecified depression type F32.A Depression Type: unspecified Anxiety disorder, unspecified F41.9 Additional Codes PHQ-9 - 88092 - PHQ-9 Billing: Yes ([id number]) Time Spent (min) 45
== END ==
PROVIDERS: PCP Internal Medicine; Visit Provider Counselor Mental Health
DX: F32.1 Major depressive disorder, single episode, moderate (principal); E66.01 Morbid (severe) obesity due to excess calories; F41.9 Anxiety disorder, unspecified
CPT/HCPCS: 90834

== ENCOUNTER 2024-09-10 12:07 | Outpatient (AMB) | payer OTHER, SELFPAY ==
--- NOTE | 2024-09-10 22:35 | A.OFFVIS_ITS ---
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* Integrity Director Required: Yes Integrity Director Services: Integrity Director Present Information Interpreted: clinical only Allergies dulaglutide [From Trulicity] Adverse Reaction (Unknown, Verified 09/10/24 22:41) Itching insulin lispro [From Humalog U-100 Insulin] Adverse Reaction (Unknown, Verified 09/10/24 22:41) Rash Aspirin Allergy (Unknown, Uncoded 09/10/24 22:41) swelling Latex Allergy (Unknown, Uncoded 09/10/24 22:41) rash Metformin Allergy (Unknown, Uncoded 09/10/24 22:41) stomach upset Penicillin Allergy (Unknown, Uncoded 09/10/24 22:41) swelling Medication List - Last Reconciled 09/10/24 by Neville Stephens MD atorvastatin 20 mg PO DAILY ferrous sulfate (FeroSul) 325 mg PO DAILY gabapentin 600 mg PO BEDTIME insulin aspart U-100 (Novolog FlexPen U-100 Insulin aspart) 10 units subcut DAILY insulin pump cart,cont inf,BT (Omnipod Dash Pods (Gen 4) subcutaneous cartridge) As directed lisinopril 2.5 mg PO DAILY loratadine (Allergy Relief (loratadine)) 10 mg PO DAILY ondansetron 4 mg PO Q12H pantoprazole 40 mg PO DAILY paroxetine HCl 30 mg PO DAILY polyethylene glycol 3350 17 grams PO DAILY sucralfate 10 mL PO BID tirzepatide (Mounjaro) 5 mg (0.5 mL) subcut QWEEK HPI HPI TV Pre Op LSG 09/19/24 *ANALYTICAL DATA MINER*: Details: Start time: 1pm, End time: 1.30pm I spent 125 minutes speaking with the patient on the phone plus an additional 5 minutes reviewing and updating records for a total of 30 minutes HPI Comments Details: Overall weight loss: 21.8lbs, or 8.58% TBWL This is the preop visit for laparoscopic sleeve gastrectomy [facility] Medical History (Updated 12/11/24 @ 10:54 by Neville Stephens MD) Depression Hypertension Hyperlipidemia Uncontrolled type 2 diabetes mellitus with hyperglycemia Neuropathy Right sciatic nerve pain FLORENCIA (obstructive sleep apnea) Asthma Type 2 diabetes mellitus Morbid obesity History of deviated nasal septum Surgical History Hx of section Family History Father Multiple sclerosis Mother Diabetes mellitus Sister Lupus Brother No problems noted. Daughter No problems noted. Social History Alcohol intake: never Patient Tobacco Use Status: Never used Tobacco Telehealth Telehealth Telehealth Platform: Telephone Location of provider rendering services: practice address Location of patient: address on file Patient Identification confirmed using: Name, : Yes Telehealth method: voice only Patient verbally consented to treatment: Yes Patient verbally consented to billing insurance company: Yes Patient informed of any privacy concerns related to visit: Yes Minutes spent on Phone/Video with Pt.: 30 Assessment & Plan Assessment & Plan (1) Morbid obesity: Code(s): E66.01 - Morbid (severe) obesity due to excess calories Category: Medical Plan: 1. Plan for lap sleeve gastrectomy including upper GI endoscopy. All tests has been completed and reviewed and the patient is cleared for the surgery. If diaphragmatic or ventral hernias are present at time of surgery, these will be repaired laparoscopically as well. Risks and complications were discussed in detail including possible conversion to an open procedure, anastomotic leak, bleeding requiring transfusion, small bowel obstruction, , DVT and pulmonary embolism, cardiac, or pulmonary complications, as senior care complications such as anastomotic ulcer, insufficient weight loss and vitamin deficiencies. I emphasized the importance of close follow-up, adherence to instructions and good communication. So far she has proven to be an excellent communicator and very compliant with all our directions accomplishing a great weight loss. I believe that she is an excellent candidate and she is ready. 2. Preop prescriptions were provided and explained the purpose of each one. Need to be purchased preop. Start Pantoprazole now as you get it from the pharmacy, 1 pill per day. Sucralfate and Zofran are for after surgery as needed. 3. Bowel prep: please do 7 packets of Miralax mixing each one with an 8oz glass of water, crystal light, gatorade zero, or propel on 09/17/24 and the same amount on 09/18/24. The Miralax you begin with one packet at a time in 8oz water or crystal light, gatorade zero, or propel as early in the day as you can and you do them back to back until you finish them. Continue the protein shakes during the bowel prep. 4. Needs to purchase 1oz medicine cups . 5. Needs to purchase Children's liquid Tylenol for postop pain control. 6. She needs to stop the Mounjaro and the Jardiance as of tomorrow 09/11/24. Stop also the Gabapentin on Sunday09/15/24. Avoid aspirin, motrin, Advil, Aleve, Ibuprofen, Naproxyn. Tylenol is OK. 7. She needs to purchase the Celebrate 4:1 protein shakes from the hospital's gift shop. 8. Will do basic preop blood work-up any day between Sunday09/04/22 and Sunday09/08/22 fasting for 12 hours and is scheduled to see the Anesthesiologist prior to the day of surgery. 9. Check the blood sugars daily and let me know if your blood sugar gets below 100. 10. Importance of adherence to postop folllow-up and recommendations was underscored and she understands that. 11. Continue to avoid food and bars and continue with 4 Premier protein shakes (ONE scoop in 8oz almond milk) at 8am-10am, 11am-1pm, 2pm-4pm, 5pm-7pm and one more Premier protein shake with TWO scoops in 8oz of almond milk at 8pm-10pm 12. No soups, broths or V8 13. The patient's medical history has been reviewed and they are considered low risk for post op DVT and therefore DVT prophylaxis is not considered necessary. Travel after surgery was reviewed. The patient has not disclosed any travel plans during the first 30 days after surgery and they have been advised that within the first 30 days after surgery any bus, plane, train or car travel over 2 hours in duration is contraindicated due to the possibility of developing blood clots from immobility. Any travel, needs to include periods of ambulation of 10 minutes in duration every 2 hours. Patient was instructed to discuss any plans for travel during this period with their bariatric surgeon. 14. Try to use your CPAP daily and bring it to the hospital with your mask 14. As of tomorrow, please check your blood pressure daily in the morning. If your blood pressure is: Below 120/70: do not take the Lisinopril 121/71 to 130/80: take HALF Lisinopril Over 131/81: take the whole Lisinopril 15. Please take at the day of surgery the following medications: 16. Stop any control pills and don't use them for one month after surgery 17. Absolutely no smoking or vaping, or marijuana until the surgery and for at least the first 4 weeks. Only nicotine patches are allowed. 18. Send me weight measurements on Sunday09/15/24 and then on Sunday09/19/24, the day of surgery before you go to the hospital. 19. Avoid any steroids by mouth for any reason. Let me know if someone prescribes them to you 20. These instructions supersede anything else you read in the handbook, anything you watched in videos or classes or you were told by any other provider. If there is any conflict, you follow the above instructions and nothing else.
[2024-09-10 22:36] VITALS: BMI 45.3
--- OUTSIDE RECORDS SUMMARY | 2024-09-11 01:58 | XMS_ITS | Continuity of Care Document ---
Author Organization [facility] Address [address] [place] [address]- Care Team Providers Care Liability Claims Manager Name Role Phone Nasreen SHANE, Adrienne Primary Care Physician Encounter [facility] [place] Date(s): 08/04/24 - 09/03/24 [facility] [address] [place] [address]- Encounter Type: Triage Allergies, Adverse Reactions, Alerts Substance Criticality Severity Reaction Reaction Severity Status penicillin rash and itching Active aspirin eye swelling Active metFORMIN abdominal pain Activ e Ozempic (0.25 mg or 0.5 mg dose) pain Active HumaLOG Rash Active Latex Unable to assess criticality Persistent Mild ITCH Active Trulicity Pen rash Active Immunizations Given and Recorded Vaccine Date Status Refusal Reason SARS-CoV-2 (COVID-19) mRNA BNT-162b2 vac 09/13/21 Given SARS-CoV-2 (COVID-19) mRNA BNT-162b2 vac 03/17/21 Given SARS-CoV-2 (COVID-19) mRNA BNT-162b2 vac 02/24/21 Given influenza virus vaccine, inactivated 08/18/21 Give n influenza virus vaccine, inactivated 07/10/19 Give n influenza virus vaccine, inactivated 06/29/17 Give n influenza virus vaccine, inactivated 07/17/16 Give n influenza virus vaccine, inactivated 1 08/09/15 Gi leonie influenza virus vaccine, inactivated 2 07/03/14 Gi leonie influenza virus vaccine, inactivated 3 06/23/13 Gi leonie influenza virus vaccine, inactivated 4 07/10/12 Gi leonie influenza virus vaccine, inactivated 5 11/03/11 Gi leonie influenza virus vaccine, inactivated 6 06/08/08 Gi leonie tetanus/diphtheria/pertussis, acel(Tdap) 7 06/23/19 Given pneumococcal 23-valent vaccine 8 07/30/12 Given Hepatitis A-Hepatitis B Vaccine 9 09/26/11 Given Hepatitis A-Hepatitis B Vaccine 10 03/16/11 Given Hepatitis A-Hepatitis B Vaccine 02/13/11 Given Tet/Diphth/Acel, Pertussis (oldterm) 11 05/04/08 G марина 1Result Comment: [08/09/2015] Ordered by Matt 2Result Comment: [07/03/2014] Ordered by Matt 3Result Comment: [06/25/2013] Ordered by Dr. Gutierrez 4Admin Note: vis given 04/01/12 5Admin Note: vis given 04/25/2011 6Admin Note: VIS GIVEN 7Result Comment: [facility] [place] [id number] 8Admin Note: VIS 07-06-09 9Admin Note: vis given vis date 12/04--A 10Admin Note: vis given 11Admin Note: VIS given in [place] Medications Alcohol Wipes See Instructions, # 1 box, Refills 3, Tot. Refills 3, Maintenance, use as didrected when checkin blood sugar E11.9, 05/23/17 9:51:21 AM EDT, Compound Start Date: 05/23/17 Status: Ordered Quantity: 1.0 Unit: box Repeat number: 4 atorvastatin 20 mg oral tablet 1 tablet, By Mouth, Daily, FOR CHOLESTEROL AND TO PROTECT HEART.; 90 DAY SUPPLY; [place], # 90 tablet, 3 Refills, Maintenance, 12/31/23 2:15:00 PM EDT, [facility] #[id number], 157, cm, 12/31/23 13:49:00 EDT, Height, 119, kg, 12/31/23 13:49:00 EDT, Dry Weight Start Date: 12/31/23 Status: Ordered Quantity: 90.0 Unit: tablet Repeat number: 4 Baqsimi One Pack 3 mg nasal powder = 3 mg, Nares, Both, Once, # 1 each, 0 Refills, Soft Stop, 06/03/24 2:45:00 PM EDT, [facility] #[id number], Partial fill upon patient request if the prescription is for a schedule II opioid drug.,157, cm, 06/03/24 14:20:00 EDT, Height, 114.09, kg, 06/03/24 14:20:00 EDT, Dry Weight Start Date: 06/03/24 Status: Ordered Quantity: 1.0 Unit: each Repeat number: 1 CTS splint- Left CTS splint- Left, See Instructions, # 1 each, Refills 0, Tot. Refills 0, Maintenance, dx: G56.00, 06/23/24 2:32:00 PM EDT, Supply Start Date: 06/23/24 Status: Ordered Quantity: 1.0 Unit: each Repeat number: 1 Dexcom 7 Sensor Dexcom 7 Sensor, See Instructions, # 3 each, Refills 5, Tot. Refills 5, Maintenance, to check BG 4 times per day change eery 10 days dx: E11.65, 04/28/24 5:36:00 PM EDT, This was prescribed in March with refills, is there a problem?, Supply, 157, cm, 04/16/24 8:50:00 EDT, Height, 116.36, kg, 248:07:00 EDT, Dry Weight Start Date: 04/28/24 Status: Ordered Quantity: 3.0 Unit: each Repeat number: 6 diclofenac 1% topical gel See Instructions, APPLY TOPICALLY FOUR TIMES DAILY, # 100 Gm, 0 Refills, Maintenance, 02/20/24 11:43:00 AM EDT, [facility] #[id number], 7, APPLY TOPICALLY FOUR TIMES DAILY, 157, cm, 01/28/24 15:42:00 EDT, Height, 118.18, kg, 01/28/24 15:42:00 EDT, Dry Weight Start Date: 02/20/24 Status: Ordered Quantity: 100.0 Unit: g Repeat number: 1 FeroSul 325 mg oral tablet 1 tablet, By Mouth, Daily, # 90 tablet, 1 Refills, Maintenance, 06/16/24 11:15:00 PM EDT, [facility] #[id number], 157, cm, 06/03/24 14:20:00 EDT, Height, 114.09, kg, 06/03/24 14:20:00 EDT, Dry Weight Start Date: 06/16/24 Status: Ordered Quantity: 90.0 Unit: tablet Repeat number: 1 gabapentin 600 mg oral tablet 1 tablet, By Mouth, Daily at bedtime, # 90 tablet, 3 Refills, Maintenance, 12/31/23 2:15:00 PM EDT, [facility] #[id number], 157, cm, 12/31/23 13:49:00 EDT, Height, 119, kg, 12/31/23 13:49:00 EDT, Dry Weight Start Date: 12/31/23 Status: Ordered Quantity: 90.0 Unit: tablet Repeat number: 4 hydrOXYzine pamoate 50 mg oral capsule 1 capsule, By Mouth, 3 times a day, PRN NEEDED FOR ANXIETY, # 90 capsule, 0 Refills, Maintenance, 09/02/24 4:18:00 PM EST, [facility] #[id number], 157, cm, 06/23/24 13:59:00 EDT, Height, 114.81, kg, 06/23/24 13:59:00 EDT, Dry Weight Start Date: 09/02/24 Status: Ordered Quantity: 90.0 Unit: capsule Repeat number: 1 Jardiance 25 mg oral tablet 1 tablet = 25 mg, By Mouth, Daily in AM, # 90 tablet, 3 Refills, Maintenance, 12/31/23 2:23:00 PM EDT, Tablet, [facility] #[id number], Partial fill upon patient request if the prescription is for a schedule II opioid drug., 157, cm, 12/31/23 13:49:00 EDT, Height, 119, kg, 12/31/23 13:49:00 EDT, Dry Weight Start Date: 12/31/23 Status: Ordered Quantity: 90.0 Unit: tablet Repeat number: 4 Lantus Solostar Pen 100 units/mL subcutaneous solution = 50 units, Subcutaneous Infusion, Daily, to use only if insulin pump is not working, # 15 mL, 6 Refills, Maintenance, 06/23/24 2:49:00 PM EDT, [facility] #[id number], Partial fill upon patient request if the prescription is for a schedule II opioid drug., 157, cm, 06/23/24 13:59:00 EDT, Height, 114.81, kg, 06/23/24 13:59:00 EDT, Dry Weight Start Date: 06/23/24 Status: Ordered Quantity: 15.0 Unit: mL Repeat number: 7 lisinopril 2.5 mg oral tablet See Instructions, TAKE 1 TABLET BY MOUTH DAILY, # 90 tablet, Refills 3, Tot. Refills 3, Maintenance, 12/31/23 2:15:00 PM EDT, Instructions Replace Required Details, Route to Pharmacy Electronically, [facility] #[id number], 157, cm, 12/31/23 13:49:00 EDT, Height, 119, kg, 12/31/23 13:49:00 EDT, Dry Weight Start Date: 12/31/23 Status: Ordered Quantity: 90.0 Unit: tablet Repeat number: 4 loratadine 10 mg oral tablet 1, tablet, By Mouth, Daily, PRN, # 90 tablet, Refills 1, Tot. Refills 1, Maintenance, NEEDED FORALLERGY SYMPTOMS, 12/31/23 2:29:00 PM EDT, Route to Pharmacy Electronically, [facility] #[id number], 157, cm, 12/31/23 13:49:00 EDT, Height, 119, kg, 12/31/23 13:49:00 EDT, Dry Weight Start Date: 12/31/23 Status: Ordered Quantity: 90.0 Unit: tablet Repeat number: 2 NovoLOG 100 units/mL injectable solution See Instructions, for use with OmniPod infusion system. TDD 80 units, # 30 mL, 0 Refills, Maintenance, 06/03/24 2:45:00 PM EDT, [facility] #[id number], Partial fill upon patient request if the prescription is for a schedule II opioid drug., 157, cm, 06/03/24 14:20:00 EDT, Height, 114.09, kg, 06/03/24 14:20:00 EDT, Dry Weight Start Date: 06/03/24 Status: Ordered Quantity: 30.0 Unit: mL Repeat number: 1 NuLYTELY Lemon [place] oral powder for reconstitution See Instructions, as directed by office, # 1 each, 0 Refills, Maintenance, 03/12/24 12:55:00 PM EDT,REC Powder, [facility] #[id number], ok to sub for any gallon prep, 157, cm, 03/12/24 12:33:00 EDT, Height, 118.18, kg, 01/28/24 15:42:00 EDT, Dry Weight Start Date: 03/12/24 Status: Ordered Quantity: 1.0 Unit: each Repeat number: 1 Omni Pod Insulin Pump See Instructions, # 1 each, Maintenance, Dx: T2DM, 02/01/24 8:29:00 AM EDT, Supply Start Date: 02/01/24 Status: Ordered Quantity: 1.0 Unit: each Repeat number: 1 Omnipod 5 pods Omnipod 5 pods, See Instructions, # 10 each, Refills 11, Tot. Refills 11, Maintenance, DM2 dispensewith SkinTac Change every 3 days, 04/16/24 10:11:00 AM EDT, Supply, 157, cm, 04/16/24 8:50:00 EDT, Height, 116.36, kg, 03/14/24 8:07:00 EDT, Dry Weight Start Date: 04/16/24 Status: Ordered Quantity: 10.0 Unit: each Repeat number: 12 OmniPod Intro Kit OmniPod Intro Kit, See Instructions, # 1 each, Refills 0, Tot. Refills 0, Maintenance, T2DM, :30:00 AM EDT, Supply Start Date: 02/01/24 Status: Ordered Quantity: 1.0 Unit: each Repeat number: 1 PARoxetine 30 mg oral tablet 1 tablet, By Mouth, Daily, # 90 tablet, 3 Refills, Maintenance, 12/31/23 2:30:00 PM EDT, [facility] #[id number], 157, cm, 12/31/23 13:49:00 EDT, Height, 119, kg, 12/31/23 13:49:00 EDT, Dry Weight Start Date: 12/31/23 Status: Ordered Quantity: 90.0 Unit: tablet Repeat number: 4 Pen [place], 31 G x 5 mm BD Ultra Fine III See Instructions, # 120 each, Refills 6, Tot. Refills 6, Maintenance, use as directed for Type 2 Diabetes Mellitus once daily with lantus pen and 3 times with novolog, 12/31/23 2:28:00 PM EDT, Supply, 157, cm, 12/31/23 13:49:00 EDT, Height, 119, kg, 12/31/23 13:49:00 EDT, Dry Weight Start Date: 12/31/23 Stop Date: 07/28/24 Status: Ordered Quantity: 120.0 Unit: each Repeat number: 7 tirzepatide 10 mg/0.5 mL subcutaneous solution = 10 mg, Subcutaneous Injection, Every week, rotate injection sites, # 4 each, 0 Refills, Maintenance, 06/03/24 2:36:00 PM EDT, Solution, [facility] #[id number], Partial fill upon patient request if the prescription is for a schedule II opioid drug., 157, cm, 06/03/24 14:20:00 EDT, Height, 114.09, kg, 06/03/24 14:20:00 EDT, Dry Weight Start Date: 06/03/24 Stop Date: 07/01/24 Status: Ordered Quantity: 4.0 Unit: each Repeat number: 1 tirzepatide 12.5 mg/0.5 mL subcutaneous solution = 12.5 mg, Subcutaneous Injection, Every week, rotate injection sites, # 4 each, 0 Refills, Maintenance, 08/06/24 1:40:00 PM EST, Solution, [facility] #[id number], Partial fill upon patient request if the prescription is for a schedule II opioid drug., 157, cm, 06/23/24 13:59:00 EDT, Height, 114.81, kg, 06/23/24 13:59:00 EDT, Dry Weight Start Date: 08/06/24 Status: Ordered Quantity: 4.0 Unit: each Repeat number: 1 Tylenol Extra Strength 500 mg oral tablet 2 tablet = 1,000 mg, By Mouth, 3 times a day, PRN as needed for headaches/body aches, # 50 tablet, 0 Refills, Maintenance, 10/10/22 7:43:00 PM EST, Tablet, [facility] #[id number], Partial fill upon patient request if the prescription is for a schedule II opioid drug., 157, cm, 05/23/22 14:30:00EDT, Height Start Date: 10/10/22 Status: Ordered Quantity: 50.0 Unit: tablet Repeat number: 1 Ventolin HFA 108 mcg/inh inhalation aerosol with adapter 2 puffs, Inhalation, Every 6 hours, PRN NEEDED FOR WHEEZING OR SHORTNESS OF BREATH, # 18 Gm, 0 Refills, Maintenance, 01/24/24 12:36:00 PM EDT, [facility] #[id number], 157, cm, 12/31/23 13:49:00 EDT, Height, 119, kg, 12/31/23 13:49:00 EDT, Dry Weight Start Date: 01/24/24 Status: Ordered Quantity: 18.0 Unit: g Repeat number: 1 Problem List Condition Confirmation Course Effective Dates Status H ealth Status Informant Asthma 1, 2 Confirmed Active Binge-eating disorder, moderate Confirmed Active Screening for cervical cancer 3, 4 Confirmed Active Diabetes mellitus - adult onset Confirmed Active Diabetic neuropathy Confirmed Active Dysthymia Confirmed Active Hx of vertigo Confirmed Active Herpes labialis Confirmed Active Hyperlipidemia Confirmed Active Right knee pain 5 Confirmed Active Low back pain 6, 7, 8 Confirmed Active Microalbuminuria 9 Confirmed Active Morbid Obesity Confirmed Active Non-proliferative diabetic retinopathy 10 Confirmed Active Severe obesity Confirmed Active Bilateral shoulder pain 11, 12 Confirmed Active Steatohepatitis 13, 14, 15 Confirmed Active 1-only uses albuterol when associated with URI 2Normal spirometry. Lung volumes are normal. Diffusing capacity is mildly reduced. 3-negative January 2023 4-Nov 17-2016. Due in 5 years=Nov 2021 5MRI: : 1. Diminutive and slightly lax contour of the ACL, suggestive of a chronic partial tear. 2. Focal free margin truncation in the posterior third of the medial meniscus near its posterior tibial attachment, likely free margin radial tear. 3. Mild medial compartment degenerative change. ----- 6-improved with one injection at [facility], after being evaluated by ortho ([facility]) 7MRI January 2017- Degenerative changes at the L4-L5 level with development of left lateral recess stenosis and crowding of the traversing left L5 nerve root and increased mild to moderate left neural foraminal stenosis. 8-Minimal retrolisthesis of L3-L4, and L4-L5. 9-history of microalbuminuria 10-OD 11- Coarse calcification adjacent to the humeral head, suggestive of calcific tendinopathy. 12-has followed with the [facility], and has improved with cortisone shots 13-Seen again in [place] 2023 14CT scan: Hepatosplenomegaly and hepatic steatosis (12-28-2011). 15Abd US (02/16/2011) - Fatty infiltration of the liver is seen. The examination is otherwise unremarkable. Social History Social History Type Response Smoking Status Never (less than 100 in lifetime) entered on: 02/14/23 Sex Sex Representation Female (finding) Patient Care team information Care Team Personnel Name: Adrienne Downey MD Position: S Physician - Primary Care Member Role: PCP Address: [address] [place] [address]- Telecom: Care Team Related Persons Name: IVIS BAEZA Name: TOO MCDONOUGH Insurance Providers Guarantor name: CARYN MCDONOUGH Health Plan Information #: 1 Payer: [email or web address] [facility] [employer] Member Number: NA Policy Number: NA Group Number: NA Health Plan Information #: 2 [email or web address] Member Number: NA Policy Number: NA Group Number: NA
--- OUTSIDE RECORDS SUMMARY | 2024-09-11 01:58 | XMS_ITS | Continuity of Care Document ---
Author Organization [facility] Address [address] [place] [address]- Care Team Providers Care Stamp Machine Servicer Name Role Phone Nasreen SHANE, Adrienne Primary Care Physician Encounter [facility] Date(s): 08/05/24 - 09/04/24 [facility] [address] [place] [address]- Encounter Type: Triage Allergies, Adverse Reactions, Alerts Substance Criticality Severity Reaction Reaction Severity Status penicillin rash and itching Active aspirin eye swelling Active Ozempic (0.25 mg or 0.5 mg dose) pain Active HumaLOG Rash Active Latex Unable to assess criticality Persistent Mild ITCH Active metFORMIN abdominal pain Activ e Trulicity Pen rash Active Immunizations Given and [...] 04/25/2011 6Admin Note: VIS GIVEN 7Result Comment: [facility] [id number] 8Admin Note: VIS 07-06-09 9Admin Note: vis given vis date 12/04--A 10Admin Note: vis given 11Admin Note: VIS given in [place] Medications Alcohol Wipes See Instructions, # 1 box, Refills 3, Tot. Refills 3, Maintenance, use as didrected when checkin blood sugar E11.9, 05/23/17 9:51:21 AM EDT, Compound Start Date: 05/23/17 Status: Ordered Quantity: 1.0 Unit: box Repeat number: 4 atorvastatin 20 mg oral tablet 1 tablet, By Mouth, Daily, FOR CHOLESTEROL AND TO PROTECT HEART.; 90 DAY SUPPLY; [place], # 90 tablet, 3 Refills, Maintenance, 12/31/23 2:15:00 PM EDT, [facility] #[id number], 157, cm, 12/31/23 13:49:00 EDT, Height, 119, kg, 12/31/23 13:49:00 EDT, Dry Weight Start Date: 12/31/23 Status: Ordered Quantity: 90.0 Unit: tablet Repeat number: 4 Baqsimi One Pack 3 mg nasal powder = 3 mg, Nares, Both, Once, # 1 each, 0 Refills, Soft Stop, 06/03/24 2:45:00 PM EDT, [facility] #[id number], Partial fill upon patient request if the [...] 0 Refills, Maintenance, 02/20/24 11:43:00 AM EDT, [facility] #[id number], 7, APPLY TOPICALLY FOUR TIMES DAILY, 157, cm, 01/28/24 15:42:00 EDT, Height, 118.18, kg, 01/28/24 15:42:00 EDT, Dry Weight Start Date: 02/20/24 Status: Ordered Quantity: 100.0 Unit: g Repeat number: 1 FeroSul 325 mg oral tablet 1 tablet, By Mouth, Daily, # 90 tablet, 1 Refills, Maintenance, 06/16/24 11:15:00 PM EDT, [facility] #[id number], 157, cm, 06/03/24 14:20:00 EDT, Height, 114.09, kg, 06/03/24 14:20:00 EDT, Dry Weight Start Date: 06/16/24 Status: Ordered Quantity: 90.0 Unit: tablet Repeat number: 1 gabapentin 600 mg oral tablet 1 tablet, By Mouth, Daily at bedtime, # 90 tablet, 3 Refills, Maintenance, 12/31/23 2:15:00 PM EDT, [facility] #[id number], 157, cm, 12/31/23 13:49:00 EDT, Height, 119, kg, 12/31/23 13:49:00 EDT, Dry Weight Start Date: 12/31/23 Status: Ordered Quantity: 90.0 Unit: tablet Repeat number: 4 hydrOXYzine pamoate 50 mg oral capsule 1 capsule, By Mouth, 3 times a day, PRN NEEDED FOR ANXIETY, # 90 capsule, 0 Refills, Maintenance, 09/02/24 4:18:00 PM EST, [facility] #[id number], 157, cm, 06/23/24 13:59:00 EDT, Height, 114.81, kg, 06/23/24 13:59:00 EDT, Dry Weight Start Date: 09/02/24 Status: Ordered Quantity: 90.0 Unit: capsule Repeat number: 1 Jardiance 25 mg oral tablet 1 tablet = 25 mg, By Mouth, Daily in AM, # 90 tablet, 3 Refills, Maintenance, 12/31/23 2:23:00 PM EDT, Tablet, [facility] #[id number], Partial fill upon patient request if the [...] 6 Refills, Maintenance, 06/23/24 2:49:00 PM EDT, [facility] #[id number], Partial fill upon patient request if the [...] Replace Required Details, Route to Pharmacy Electronically, [facility] #[id number], 157, cm, 12/31/23 13:49:00 EDT, Height, 119, kg, 12/31/23 13:49:00 EDT, Dry Weight Start Date: 12/31/23 Status: Ordered Quantity: 90.0 Unit: tablet Repeat number: 4 loratadine 10 mg oral tablet 1, tablet, By Mouth, Daily, PRN, # 90 tablet, Refills 1, Tot. Refills 1, Maintenance, NEEDED FORALLERGY SYMPTOMS, 12/31/23 2:29:00 PM EDT, Route to Pharmacy Electronically, [facility] #[id number], 157, cm, 12/31/23 13:49:00 EDT, Height, 119, kg, 12/31/23 13:49:00 EDT, Dry Weight Start Date: 12/31/23 Status: Ordered Quantity: 90.0 Unit: tablet Repeat number: 2 NovoLOG 100 units/mL injectable solution See Instructions, for use with OmniPod infusion system. TDD 80 units, # 30 mL, 0 Refills, Maintenance, 06/03/24 2:45:00 PM EDT, [facility] #[id number], Partial fill upon patient request if the prescription is for a schedule II opioid drug., 157, cm, 06/03/24 14:20:00 EDT, Height, 114.09, kg, 06/03/24 14:20:00 EDT, Dry Weight Start Date: 06/03/24 Status: Ordered Quantity: 30.0 Unit: mL Repeat number: 1 NuLYTELY Lemon [place] oral powder for reconstitution See Instructions, as directed by office, # 1 each, 0 Refills, Maintenance, 03/12/24 12:55:00 PM EDT,REC Powder, [facility] #[id number], ok to sub for any gallon prep, [...] 3 Refills, Maintenance, 12/31/23 2:30:00 PM EDT, [facility] #[id number], 157, cm, 12/31/23 13:49:00 EDT, Height, 119, kg, 12/31/23 13:49:00 EDT, Dry Weight Start Date: 12/31/23 Status: Ordered Quantity: 90.0 Unit: tablet Repeat number: 4 Pen [place], 31 G x 5 mm BD Ultra [...] Refills, Maintenance, 06/03/24 2:36:00 PM EDT, Solution, [facility] #[id number], Partial fill upon patient request if the [...] Refills, Maintenance, 08/06/24 1:40:00 PM EST, Solution, [facility] #[id number], Partial fill upon patient request if the [...] Refills, Maintenance, 10/10/22 7:43:00 PM EST, Tablet, [facility] #[id number], Partial fill upon patient request if the [...] 0 Refills, Maintenance, 01/24/24 12:36:00 PM EDT, [facility] #[id number], 157, cm, 12/31/23 13:49:00 EDT, Height, 119, [...] change. ----- 6-improved with one injection at [facility], after being evaluated by ortho ([facility]) 7MRI [...] - Primary Care Member Role: PCP Address: [address] [place] [address]- Telecom: Care Team Related Persons Name: IVIS BAEZA Name: TOO MCDONOUGH Insurance Providers Guarantor name: CARYN MCDONOUGH Health Plan Information #: 1 Payer: [employer] [facility] [employer] Member Number: NA Policy Number: NA Group Number: NA Health Plan Information #: 2 [facility] Member Number: NA Policy Number: NA Group Number: NA
--- OUTSIDE RECORDS SUMMARY | 2024-09-11 01:58 | XMS_ITS | Continuity of Care Document ---
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 Refills 3, Maintenance, use as didrected when checkin blood sugar E11.9, 05/23/17 9:51:21 AM EDT, Compound Start Date: 05/23/17 Status: Ordered Quantity: 1.0 Unit: box Repeat number: 4 atorvastatin 20 mg oral tablet 1 tablet, By Mouth, Daily, FOR CHOLESTEROL AND TO PROTECT HEART.; 90 DAY SUPPLY; ROMANIAN, # 90 tablet, 3 Refills, Maintenance, 12/31/23 2:15:00 PM EDT, [facility] #[id number], 157, cm, 12/31/23 13:49:00 EDT, Height, 119, kg, 12/31/23 13:49:00 EDT, Dry Weight Start Date: 12/31/23 Status: Ordered Quantity: 90.0 Unit: tablet Repeat number: 4 Baqsimi One Pack 3 mg nasal powder = 3 mg, Nares, Both, Once, # 1 each, 0 Refills, Soft Stop, 06/03/24 2:45:00 PM EDT, [facility] #[id number], Partial fill upon patient request if the [...] 0 Refills, Maintenance, 02/20/24 11:43:00 AM EDT, [facility] #[id number], 7, APPLY TOPICALLY FOUR TIMES DAILY, 157, cm, 01/28/24 15:42:00 EDT, Height, 118.18, kg, 01/28/24 15:42:00 EDT, Dry Weight Start Date: 02/20/24 Status: Ordered Quantity: 100.0 Unit: g Repeat number: 1 FeroSul 325 mg oral tablet 1 tablet, By Mouth, Daily, # 90 tablet, 1 Refills, Maintenance, 06/16/24 11:15:00 PM EDT, [facility] #[id number], 157, cm, 06/03/24 14:20:00 EDT, Height, 114.09, kg, 06/03/24 14:20:00 EDT, Dry Weight Start Date: 06/16/24 Status: Ordered Quantity: 90.0 Unit: tablet Repeat number: 1 gabapentin 600 mg oral tablet 1 tablet, By Mouth, Daily at bedtime, # 90 tablet, 3 Refills, Maintenance, 12/31/23 2:15:00 PM EDT, [facility] #[id number], 157, cm, 12/31/23 13:49:00 EDT, Height, 119, kg, 12/31/23 13:49:00 EDT, Dry Weight Start Date: 12/31/23 Status: Ordered Quantity: 90.0 Unit: tablet Repeat number: 4 hydrOXYzine pamoate 50 mg oral capsule 1 capsule, By Mouth, 3 times a day, PRN NEEDED FOR ANXIETY, # 90 capsule, 0 Refills, Maintenance, 09/02/24 4:18:00 PM EST, [facility] #[id number], 157, cm, 06/23/24 13:59:00 EDT, Height, 114.81, kg, 06/23/24 13:59:00 EDT, Dry Weight Start Date: 09/02/24 Status: Ordered Quantity: 90.0 Unit: capsule Repeat number: 1 Jardiance 25 mg oral tablet 1 tablet = 25 mg, By Mouth, Daily in AM, # 90 tablet, 3 Refills, Maintenance, 12/31/23 2:23:00 PM EDT, Tablet, [facility] #[id number], Partial fill upon patient request if the [...] 6 Refills, Maintenance, 06/23/24 2:49:00 PM EDT, [facility] #[id number], Partial fill upon patient request if the [...] Replace Required Details, Route to Pharmacy Electronically, [facility] #[id number], 157, cm, 12/31/23 13:49:00 EDT, Height, 119, kg, 12/31/23 13:49:00 EDT, Dry Weight Start Date: 12/31/23 Status: Ordered Quantity: 90.0 Unit: tablet Repeat number: 4 loratadine 10 mg oral tablet 1, tablet, By Mouth, Daily, PRN, # 90 tablet, Refills 1, Tot. Refills 1, Maintenance, NEEDED FORALLERGY SYMPTOMS, 12/31/23 2:29:00 PM EDT, Route to Pharmacy Electronically, [facility] #[id number], 157, cm, 12/31/23 13:49:00 EDT, Height, 119, kg, 12/31/23 13:49:00 EDT, Dry Weight Start Date: 12/31/23 Status: Ordered Quantity: 90.0 Unit: tablet Repeat number: 2 NovoLOG 100 units/mL injectable solution See Instructions, for use with OmniPod infusion system. TDD 80 units, # 30 mL, 0 Refills, Maintenance, 06/03/24 2:45:00 PM EDT, [facility] #[id number], Partial fill upon patient request if the prescription is for a schedule II opioid drug., 157, cm, 06/03/24 14:20:00 EDT, Height, 114.09, kg, 06/03/24 14:20:00 EDT, Dry Weight Start Date: 06/03/24 Status: Ordered Quantity: 30.0 Unit: mL Repeat number: 1 NuLYTELY Lemon [place] oral powder for reconstitution See Instructions, as directed by office, # 1 each, 0 Refills, Maintenance, 03/12/24 12:55:00 PM EDT,REC Powder, [facility] #[id number], ok to sub for any gallon prep, [...] 3 Refills, Maintenance, 12/31/23 2:30:00 PM EDT[facility][id number], 157, cm, 12/31/23 13:49:00 EDT, Height, 119, kg, 12/31/23 13:49:00 EDT, Dry Weight Start Date: 12/31/23 Status: Ordered Quantity: 90.0 Unit: tablet Repeat number: 4 Pen [place], 31 G x 5 mm BD Ultra [...] Refills, Maintenance, 06/03/24 2:36:00 PM EDT, Solution, [facility] #[id number], Partial fill upon patient request if the [...] Refills, Maintenance, 08/06/24 1:40:00 PM EST, Solution, [facility] #[id number], Partial fill upon patient request if the [...] Refills, Maintenance, 10/10/22 7:43:00 PM EST, Tablet, [facility] #[id number], Partial fill upon patient request if the [...] 0 Refills, Maintenance, 01/24/24 12:36:00 PM EDT, [facility] #[id number], 157, cm, 12/31/23 13:49:00 EDT, Height, 119, [...] change. ----- 6-improved with one injection at [facility], after being evaluated by ortho ([facility]) [...] of calcific tendinopathy. 12-has followed with the [facility], and has improved with cortisone shots 13-Seen [...] - Primary Care Member Role: PCP Address: [address] [place] [address]- Telecom: Care Team Related Persons Name: IVIS BAEZA Name: TOO MCDONOUGH Insurance Providers Guarantor name: CARYN MCDONOUGH Health Plan Information #: 1 Payer: [employer] [facility] [employer] Member Number: NA Policy Number: NA Group Number: NA Health Plan Information #: 2 [facility] Member Number: NA Policy Number: NA Group Number: NA
--- OUTSIDE RECORDS SUMMARY | 2024-09-11 01:58 | XMS_ITS | Patient Health Record ---
Author Organization [facility] Address [address], [place] [id number] Support Name Relationship Address Phone Phyllis Rinaldi Emergency Contact [address], [place] [phone] Ephraim Rinaldi Guarantor Unknown [phone] Reason For Referral No Information Plan Of Treatment No Information Insurance Providers Payer Name Payer Address Payer Phone Subscriber Number Group Number Insured Name Patient Relationship to Insured Coverage Start Date Coverage End Date Insurance - None Need to apply for insurance [address] [place] [id number] Ephraim Rinaldi Self - patient is the insured 1
== END 2024-09-10 22:45 | disposition home or self-care (01) ==
LOC: HO.HBS 12:07
PROVIDERS: PCP Internal Medicine; Visit Provider Surgery
DX: E66.01 Morbid (severe) obesity due to excess calories (principal)
CPT/HCPCS: 99214

== ENCOUNTER 2024-09-12 12:35 | Outpatient (REF) | payer OTHER, SELFPAY ==
[2024-09-12 13:23] LABS: MANUAL DIFF FLAG NO
[2024-09-12 13:59] LABS: Basophils Percent Auto 0.2 % (0-2); Eosinophils Absolute Auto 0.2 X10*3/uL (0.0-0.4); Eosinophils Percent Auto 2.4 % (0-4); Hematocrit 42.3 % (37.0-47.0); Hemoglobin 14.2 g/dl (12.0-16.0); Imm Gran Abs Auto 0.02 X10*3/uL (0.00-0.03); Imm Gran Pct Auto 0.2 % (0.0-0.4); Lymphocytes Absolute Auto 1.9 X10*3/uL (1.2-4.9); Lymphocytes Percent Auto 21.5 % (20-40); Mean Corpuscular HGB Conc 33.6 g/dl (31.0-35.0); Mean Corpuscular Volume 80.4 fL (80.0-98.0); Monocytes Absolute Auto 0.5 X10*3/uL (0.1-1.2); Monocytes Percent Auto 5.9 % (2-11); Neutrophils Absolute Auto 6.1 x10*3/uL (2.0-8.3); Neutrophils Percent Auto 69.8 % (45-73); Platelet Count 276 X10*3/uL (160-400); Red Blood Count 5.26 X10*6/uL (4.20-5.50); Red Cell Distribution Width 13.3 % (11.0-16.0); White Blood Count 8.8 X10*3/uL (4.8-10.8)
[2024-09-12 14:06] LABS: Prothrombin Time 12.1 SEC (10.9-12.4)
[2024-09-12 14:08] LABS: Partial Thromboplastin Time 33.1 SEC (26.0-36.8)
[2024-09-12 14:09] LABS: Estimated Average Glucose 120 mg/dL; Hemoglobin A1C 147.4246 umol/L; Hemoglobin A1c % 5.8 % (<6.0); Total Hemoglobin (HGBA1C) 3673.9731 umol/L
[2024-09-12 14:34] LABS: Alanine Aminotransferase 23 U/L (0-31); Albumin Level 4.2 g/dL (3.5-5.0); Alkaline Phosphatase 88 U/L (39-117); Anion Gap 14 (12-20); Aspartate Amino Transferase 25 U/L (5-31); Bilirubin Total 1.4 mg/dL (0.0-1.0); Blood Urea Nitrogen 17 mg/dL (9-16); C Reactive Protein 0.62 mg/dL (< or = 0.50); Calcium 9.3 mg/dL (8.4-10.2); Carbon Dioxide 26 mmol/L (22-29); Chloride 102 mmol/L (96-108); Cholesterol 166 mg/dL (<200); Estimated Glomerular Filt Rate > 60; Glucose Random 122 mg/dL (60-115); HDL Cholesterol 31 mg/dL (>40); LDL Cholesterol Calculated 95 mg/dL (<100); Potassium 3.9 mmol/L (3.3-5.1); Sodium 138 mmol/L (135-145); Total Protein 8.3 g/dL (6.5-8.0); Triglycerides 204 mg/dL (<150)
[2024-09-12 15:01] LABS: TSH reflex Free T4 1.78 uIU/mL (0.32-4.0)
[2024-09-12 15:04] LABS: Insulin 23 uU/mL (2-29)
== END 2024-09-12 12:36 | disposition home or self-care (01) ==
LOC: HO.LAB 12:35
PROVIDERS: Surgery; PCP Internal Medicine; Visit Provider Physician Assistant Surgical
DX: E66.01 Morbid (severe) obesity due to excess calories (principal); G47.33 Obstructive sleep apnea (adult) (pediatric); E78.5 Hyperlipidemia, unspecified; I10 Essential (primary) hypertension; E11.65 Type 2 diabetes mellitus with hyperglycemia
CPT/HCPCS: 36415; 80053; 80061; 83036; 83525; 84443; 85025; 85610; 85730; 86140

== ENCOUNTER 2024-09-19 07:04 | Inpatient (IN) | payer OTHER, SELFPAY ==
[2024-09-11 15:04] VITALS: BMI 45.3
--- NOTE | 2024-09-17 13:02 | P.CONAN_ITS ---
Documented by User: Melissa mUana NP 09/17/24 13:04 HPI - Anesthesia Eval Consult details Narrative: 49yo F for Gastrectomy Sleeve,EGD,possibel Diaphragmatic Hernia,possible Ventral Hernia,possible Open Insulin pump Anesthesia Pre-Procedure Meds Is the patient on any of the following meds?: GLP1/DPP4 and SGLT2 Inhib PMFSH Active Problems Active Problems: All Active Problems Uncontrolled type 2 diabetes mellitus with hyperglycemia (Acute) Depression (Acute) Hypertension (Acute) Hyperlipidemia (Acute) Asthma (Acute) Neuropathy (Acute) FLORENCIA (obstructive sleep apnea) (Acute) Morbid obesity (Acute) Past Medical History Medical History Depression Hypertension Hyperlipidemia Neuropathy Right sciatic nerve pain FLORENCIA (obstructive sleep apnea) Asthma Type 2 diabetes mellitus Morbid obesity Family History Family History Father Multiple sclerosis Mother Diabetes mellitus Sister Lupus Brother No problems noted. Daughter No problems noted. Family history of problems with anesthesia: No Surgical History Surgical History History of esophagogastroduodenoscopy (EGD) Hx of nasal septoplasty Hx of section History of Problems with Anesthesia: No Social History Social History Are you a primary child care education coordinator to a significant other at home: No Do you presently have visiting nurse or other home services: No Alcohol intake: never Patient Tobacco Use Status: Never used Tobacco Use of substances other than those prescribed or required for medical reasons: No Have you been hit, kicked, punched, or otherwise hurt by someone within the past year? If so, by whom?: No Spiritual Healthcare Practices: none [facility] Practices: none Cultural Healthcare Practices: none Are you DNR?: No Advance Directives: No Advance Directives Information Provided: Yes Advance Directives on File: No Recently lost weight without trying: No Nutrition Risks: No Nutritional Risk Patient : No FDLMP: 08/30/24 : No Poor oral hygiene: No Meds Allergies Allergy/AdvReac Type Severity Reaction Status Date / Time aspirin Allergy Intermediate Swelling Verified 09/19/24 07:07 latex Allergy Intermediate Rash Verified 09/19/24 07:07 Penicillins Allergy Intermediate Swelling Verified 09/19/24 07:07 dulaglutide [From Trulicity] AdvReac Intermediate Itching Verified 09/19/24 07:07 insulin lispro AdvReac Intermediate Rash Verified 09/19/24 07:07 [From Humalog U-100 Insulin] metformin AdvReac Intermediate Gastrointestinal Verified 09/19/24 07:07 Upset Home Medications ?Medication ?Instructions ?Recorded ?Confirmed ?Last Taken ?Type loratadine 10 mg tablet (Allergy 10 mg PO DAILY 08/30/20 09/11/24 09/18/24 History Relief (loratadine)) paroxetine HCl 30 mg tablet 30 mg PO DAILY 08/30/20 09/11/24 09/18/24 History atorvastatin 20 mg tablet 20 mg PO DAILY 03/30/23 09/11/24 09/18/24 History gabapentin 600 mg tablet 600 mg PO BEDTIME 03/30/23 09/11/24 09/18/24 History ferrous sulfate 325 mg (65 mg 325 mg PO DAILY 05/25/23 09/11/24 09/18/24 History iron) tablet (FeroSul) lisinopril 2.5 mg tablet 2.5 mg PO DAILY 01/25/24 09/11/24 09/18/24 History insulin aspart U-100 100 unit/mL 10 unit subcut TIDAC 07/03/24 09/11/24 Unknown History (3 mL) subcutaneous pen (Novolog FlexPen U-100 Insulin aspart) insulin pump cart,cont inf,BT #5 ea 07/03/24 09/10/24 Unknown History (Omnipod Dash Pods (Gen 4) subcutaneous cartridge) empagliflozin 25 mg tablet 25 mg PO DAILY 09/11/24 09/11/24 09/08/24 History (Jardiance) Exam Height,Weight and Vital Signs: Height 5 ft Weight 105.233 kg Pertinent Lab Results Pertinent Lab Results: Laboratory Tests 09/12/24 13:13 Blood Type O Positive Antibody Screen NEGATIVE Laboratory Tests 09/12/24 13:22 WBC 8.8 Hgb 14.2 Hct 42.3 Plt Count 276 Sodium 138 Potassium 3.9 Chloride 102 Carbon Dioxide 26 BUN 17 H Creatinine 0.58 Narrative Narrative: EKG 03/2024 Vent. Rate : 078 BPM Atrial Rate : 078 BPM P-R Int : 138 ms QRS Dur : 086 ms QT Int : 378 ms P-R-T Axes : 033 012 036 degrees QTc Int : 430 ms Normal sinus rhythm Normal ECG When compared with ECG of 13-NOV-2019 07:28, No significant change was found Assessment and Plan Assessment Anesthesia Assessment: Chart Reviewed Final Anesthetic Review Family History of Problems with Anesthesia: No History of Problems with Anesthesia: No Documented by User: Sandy Gomez MD 09/19/24 08:49 PMFSH Past Medical History Medical History Depression Hypertension Hyperlipidemia Neuropathy Right sciatic nerve pain FLORENCIA (obstructive sleep apnea) Asthma Type 2 diabetes mellitus Morbid obesity Family History Family History Father Multiple sclerosis Mother Diabetes mellitus Sister Lupus Brother No problems noted. Daughter No problems noted. Surgical History Surgical History History of esophagogastroduodenoscopy (EGD) Hx of nasal septoplasty Hx of section Social History Social History Are you a primary child care education coordinator to a significant other at home: No Do you presently have visiting nurse or other home services: No Alcohol intake: never Patient Tobacco Use Status: Never used Tobacco Use of substances other than those prescribed or required for medical reasons: No Have you been hit, kicked, punched, or otherwise hurt by someone within the past year? If so, by whom?: No Spiritual Healthcare Practices: none Methodist Healthcare Practices: none Cultural Healthcare Practices: none Are you DNR?: No Advance Directives: No Advance Directives Information Provided: Yes Advance Directives on File: No Recently lost weight without trying: No Nutrition Risks: No Nutritional Risk Patient : No FDLMP: 08/30/24 : No Poor oral hygiene: No Meds Allergies Allergy/AdvReac Type Severity Reaction Status Date / Time aspirin Allergy Intermediate Swelling Verified 09/19/24 07:07 latex Allergy Intermediate Rash Verified 09/19/24 07:07 Penicillins Allergy Intermediate Swelling Verified 09/19/24 07:07 dulaglutide [From Trulicity] AdvReac Intermediate Itching Verified 09/19/24 07:07 insulin lispro AdvReac Intermediate Rash Verified 09/19/24 07:07 [From Humalog U-100 Insulin] metformin AdvReac Intermediate Gastrointestinal Verified 09/19/24 07:07 Upset Home Medications ?Medication ?Instructions ?Recorded ?Confirmed ?Last Taken ?Type loratadine 10 mg tablet (Allergy 10 mg PO DAILY 08/30/20 09/11/24 09/18/24 History Relief (loratadine)) paroxetine HCl 30 mg tablet 30 mg PO DAILY 08/30/20 09/11/24 09/18/24 History atorvastatin 20 mg tablet 20 mg PO DAILY 03/30/23 09/11/24 09/18/24 History gabapentin 600 mg tablet 600 mg PO BEDTIME 03/30/23 09/11/24 09/18/24 History ferrous sulfate 325 mg (65 mg 325 mg PO DAILY 05/25/23 09/11/24 09/18/24 History iron) tablet (FeroSul) lisinopril 2.5 mg tablet 2.5 mg PO DAILY 01/25/24 09/11/24 09/18/24 History insulin aspart U-100 100 unit/mL 10 unit subcut TIDAC 07/03/24 09/11/24 Unknown History (3 mL) subcutaneous pen (Novolog FlexPen U-100 Insulin aspart) insulin pump cart,cont inf,BT #5 ea 07/03/24 09/10/24 Unknown History (Omnipod Dash Pods (Gen 4) subcutaneous cartridge) empagliflozin 25 mg tablet 25 mg PO DAILY 09/11/24 09/11/24 09/08/24 History (Jardiance) Exam Airway Mallampati Class: III TM Dist: >3cm Neck ROM: Full Loose/Missing/Broken Teeth: No Heart: RRR Lungs: CTA Assessment and Plan Assessment Anesthesia Assessment: Anesthesia Plan Discussed Final Anesthetic Review NPO: Yes ASA Class: III Final Preanesthetic Review: Meds/Allgs Chart Reviewed, Consent Obtained/Reviewed and Anes Risks/Benef Reviewed Patient Risk: Intermediate Procedure Risk: Intermediate Anesthetic Plan Anesthetic Plan: GA Disposition: Standard PACU
[2024-09-19] VITALS (11 sets, daily range): BP systolic 94–162; BP diastolic 68–87; PULSE 74–85; RESP 13–18; TEMP 36.1–37.2; O2SAT 93–97; BMI 44.6
--- OUTSIDE RECORDS SUMMARY | 2024-09-19 07:08 | XMS_ITS | Continuity of Care Document ---
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 Name Role Phone Nasreen SHANE, Adrienne Primary Care Physician En[place] [facility] Date(s): 06/23/24 - 09/17/24 [facility] [address] [place] [address]- Attending Physician: Adrienne Downey MD Admitting Physician: Adrienne Downey MD Encounter Type: Pre-OutPatient One Time Allergies, Adverse Reactions, Alerts Substance Criticality Severity [...] Given Tet/Diphth/Acel, Pertussis (oldterm) 11 05/04/08 G iven 1Result Comment: [08/09/2015] Ordered by Matt 2Result Comment: [07/03/2014] Ordered by Matt 3Result Comment: [06/25/2013] Ordered by Dr. Gutierrez 4Admin Note: vis given 04/01/12 5Admin Note: vis given 04/25/2011 6Admin Note: VIS GIVEN 7Result Comment: [facility] [id number] 8Admin Note: VIS 07-06-09 9Admin Note: vis given vis date 12/04--A 10Admin Note: vis given 11Admin Note: VIS given in Chinese Medications Alcohol Wipes See Instructions, # 1 box, Refills 3, Tot. Refills 3, Maintenance, use as didrected when checkin blood sugar E11.9, 05/23/17 9:51:21 AM EDT, Compound Start Date: 05/23/17 Status: Ordered Quantity: 1.0 Unit: box Repeat number: 4 atorvastatin 20 mg oral tablet 1 tablet, By Mouth, Daily, FOR CHOLESTEROL AND TO PROTECT HEART.; 90 DAY SUPPLY; GREEK, # 90 tablet, 3 Refills, Maintenance, 12/31/23 2:15:00 PM EDT, [facility] #[id number], 157, cm, 12/31/23 13:49:00 EDT, Height, 119, kg, 12/31/23 13:49:00 EDT, Dry Weight Start Date: 12/31/23 Status: Ordered Quantity: 90.0 Unit: tablet Repeat number: 4 Baqsimi One Pack 3 mg nasal powder = 3 mg, Nares, Both, Once, # 1 each, 0 Refills, Soft Stop, 06/03/24 2:45:00 PM EDT, [facility] #[id number], Partial fill upon patient request if the [...] cm, 04/16/24 8:50:00 EDT, Height, 116.36, kg, :07:00 EDT, Dry Weight Start Date: 04/28/24 Status: Ordered Quantity: 3.0 Unit: each Repeat number: 6 diclofenac 1% topical gel See Instructions, APPLY TOPICALLY FOUR TIMES DAILY, # 100 Gm, 0 Refills, Maintenance, 02/20/24 11:43:00 AM EDT, [facility] #[id number], 7, APPLY TOPICALLY FOUR TIMES DAILY, 157, cm, 01/28/24 15:42:00 EDT, Height, 118.18, kg, 01/28/24 15:42:00 EDT, Dry Weight Start Date: 02/20/24 Status: Ordered Quantity: 100.0 Unit: g Repeat number: 1 FeroSul 325 mg oral tablet 1 tablet, By Mouth, Daily, # 90 tablet, 1 Refills, Maintenance, 06/16/24 11:15:00 PM EDT, [facility] #[id number], 157, cm, 06/03/24 14:20:00 EDT, Height, 114.09, kg, 06/03/24 14:20:00 EDT, Dry Weight Start Date: 06/16/24 Status: Ordered Quantity: 90.0 Unit: tablet Repeat number: 1 gabapentin 600 mg oral tablet 1 tablet, By Mouth, Daily at bedtime, # 90 tablet, 3 Refills, Maintenance, 12/31/23 2:15:00 PM EDT, [facility] #[id number], 157, cm, 12/31/23 13:49:00 EDT, Height, 119, kg, 12/31/23 13:49:00 EDT, Dry Weight Start Date: 12/31/23 Status: Ordered Quantity: 90.0 Unit: tablet Repeat number: 4 hydrOXYzine pamoate 50 mg oral capsule 1 capsule, By Mouth, 3 times a day, PRN NEEDED FOR ANXIETY, # 90 capsule, 0 Refills, Maintenance, 09/02/24 4:18:00 PM EST, [facility] #[id number], 157, cm, 06/23/24 13:59:00 EDT, Height, 114.81, kg, 06/23/24 13:59:00 EDT, Dry Weight Start Date: 09/02/24 Status: Ordered Quantity: 90.0 Unit: capsule Repeat number: 1 Jardiance 25 mg oral tablet 1 tablet = 25 mg, By Mouth, Daily in AM, # 90 tablet, 3 Refills, Maintenance, 12/31/23 2:23:00 PM EDT, Tablet, [facility] #[id number], Partial fill upon patient request if the [...] 6 Refills, Maintenance, 06/23/24 2:49:00 PM EDT, [facility] #[id number], Partial fill upon patient request if the [...] Replace Required Details, Route to Pharmacy Electronically, [facility] #[id number], 157, cm, 12/31/23 13:49:00 EDT, Height, 119, kg, 12/31/23 13:49:00 EDT, Dry Weight Start Date: 12/31/23 Status: Ordered Quantity: 90.0 Unit: tablet Repeat number: 4 loratadine 10 mg oral tablet 1, tablet, By Mouth, Daily, PRN, # 90 tablet, Refills 1, Tot. Refills 1, Maintenance, NEEDED FORALLERGY SYMPTOMS, 12/31/23 2:29:00 PM EDT, Route to Pharmacy Electronically, [facility] #[id number], 157, cm, 12/31/23 13:49:00 EDT, Height, 119, kg, 12/31/23 13:49:00 EDT, Dry Weight Start Date: 12/31/23 Status: Ordered Quantity: 90.0 Unit: tablet Repeat number: 2 NovoLOG 100 units/mL injectable solution See Instructions, for use with OmniPod infusion system. TDD 80 units, # 30 mL, 0 Refills, Maintenance, 06/03/24 2:45:00 PM EDT, [facility] #[id number], Partial fill upon patient request if the prescription is for a schedule II opioid drug., 157, cm, 06/03/24 14:20:00 EDT, Height, 114.09, kg, 06/03/24 14:20:00 EDT, Dry Weight Start Date: 06/03/24 Status: Ordered Quantity: 30.0 Unit: mL Repeat number: 1 NuLYTELY Lemon [place] oral powder for reconstitution See Instructions, as directed by office, # 1 each, 0 Refills, Maintenance, 03/12/24 12:55:00 PM EDT,REC Powder, [facility] #[id number], ok to sub for any gallon prep, [...] Refills 0, Tot. Refills 0, Maintenance, T2DM, 248:30:00 AM EDT, Supply Start Date: 02/01/24 Status: Ordered Quantity: 1.0 Unit: each Repeat number: 1 PARoxetine 30 mg oral tablet 1 tablet, By Mouth, Daily, # 90 tablet, 3 Refills, Maintenance, 12/31/23 2:30:00 PM EDT, [facility] #[id number], 157, cm, 12/31/23 13:49:00 EDT, Height, 119, kg, 12/31/23 13:49:00 EDT, Dry Weight Start Date: 12/31/23 Status: Ordered Quantity: 90.0 Unit: tablet Repeat number: 4 Pen [place], 31 G x 5 mm BD Ultra [...] 120.0 Unit: each Repeat number: 7 tirzepatide 15 mg/0.5 mL subcutaneous solution = 15 mg, Subcutaneous Injection, Every week, rotate injection sites NEW HIGHER DOSE, # 4 each, 3 Refills, Maintenance, 09/10/24 10:44:00 AM EST, Solution, [facility] #[id number], Partial fill upon patient request if the prescription is for a schedule II opioid drug., 157, cm, 06/23/24 13:59:00EDT, Height, 114.81, kg, 06/23/24 13:59:00 EDT, Dry Weight Start Date: 09/10/24 Status: Ordered Quantity: 4.0 Unit: each Repeat number: 4 Tylenol Extra Strength 500 mg oral tablet 2 tablet = 1,000 mg, By Mouth, 3 times a day, PRN as needed for headaches/body aches, # 50 tablet, 0 Refills, Maintenance, 10/10/22 7:43:00 PM EST, Tablet, [facility] #[id number], Partial fill upon patient request if the [...] 0 Refills, Maintenance, 01/24/24 12:36:00 PM EDT, [facility] #[id number], 157, cm, 12/31/23 13:49:00 EDT, Height, 119, [...] change. ----- 6-improved with one injection at [facility], after being evaluated by ortho ([facility]) [...] of calcific tendinopathy. 12-has followed with the [facility], and has improved with cortisone shots 13-Seen again in [place] 2023 14CT scan: Hepatosplenomegaly and hepatic steatosis (09-27-2011). 15Abd [place] (02/16/2011) - Fatty infiltration of the liver is seen. The examination is otherwise unremarkable. Social History Social History Type Response Smoking Status Never (less than 100 in lifetime) entered on: 02/14/23 Sex Sex Representation Female (finding) Patient Care team information Care Team Personnel Name: Adrienne Downey MD Position: S Physician - Primary Care Member Role: PCP Address: [address] [place] [address]- Telecom: Care Team Related Persons Name: BAEZAJYOTIKATEY Name: TOO MCDONOUGH Insurance Providers Guarantor name: CARYN MCDONOUGH Health Plan Information #: 1 Payer: [facility] Member Number: [id number] Policy Number: NA Group Number: [id number] Health Plan Information #: 2 Payer: [facility] Member Number: [id number] Policy Number: NA Group Number: NA
--- OUTSIDE RECORDS SUMMARY | 2024-09-19 07:08 | XMS_ITS | Patient Health Record ---
Author Organization [facility] Address [address], [place] [id number] Support Name Relationship Address Phone Phyllis Rinaldi Emergency Contact [address] [place], [place] [phone] Ephraim Rinaldi Guarantor Unknown [phone] Reason For Referral No Information Plan Of Treatment No Information Insurance Providers Payer Name Payer Address Payer Phone Subscriber Number Group Number Insured Name Patient Relationship to Insured Coverage Start Date Coverage End Date Insurance - None Need to apply for insurance [address] [place] [id number] Ephraim Rinaldi Self - patient is the insured 1
[2024-09-19 07:25] LABS: UPreg QC Valid YES; Urine Pregnancy NEGATIVE (NEGATIVE)
[2024-09-19] MEDS: Lactated Ringers 1,000 ML 999 ML IV (07:28)
[2024-09-19] MEDS: Aprepitant 32 MG/4.4 ML VIAL IVPUSH (07:28)
--- NOTE | 2024-09-19 07:35 | PHA.MEDREC ---
Pharmacy Consult ? Medication Reconciliation Pharmacy has completed the medication reconciliation. Reviewed med rec done by nursing, confirmed with RN interpreting that patient does not have their insulin pump in at this time. Meds match claims and last tirzepatide injection was last Sunday
[2024-09-19 07:52] LABS: Glucose, Whole Blood 140 mg/dL (60-115)
--- NOTE | 2024-09-19 09:08 | MHC.SHP ---
Pre-Procedural Eval Section A - 24 Hr Update-Section A only Date of Service: 09/19/24 The patient is an INPATIENT: Yes The patient has been examined within 24 hours of the surgical procedure. The History & Physical has been completed within 30 days and I have reviewed it.: Yes Section B - Complete if H&P > 30 days Chief Complaint: Morbid obesity Relevant Family History (Specify if Yes): No Relevant Social History: None Present Medications: None Medical History: No relevant PMH History of Previous Operations: No relevant previous surgery Allergies: Allergies Allergy/AdvReac Type Severity Reaction Status Date / Time aspirin Allergy Intermediate Swelling Verified 09/19/24 07:07 latex Allergy Intermediate Rash Verified 09/19/24 07:07 Penicillins Allergy Intermediate Swelling Verified 09/19/24 07:07 dulaglutide [From Trulicity] AdvReac Intermediate Itching Verified 09/19/24 07:07 insulin lispro AdvReac Intermediate Rash Verified 09/19/24 07:07 [From Humalog U-100 Insulin] metformin AdvReac Intermediate Gastrointestinal Verified 09/19/24 07:07 Upset Review of Systems Sugical H&P ROS: Negative: Constitution, Cardiovascular, Respiratory, Neurological, Psychiatric, Hem-Onc, Allergic/Immunologic, Gastrointestinal, Genitourinary, Musculoskeletal, Integumentary, Endocrine and Eyes/Ears/Nose/Throat Exam Surgical H&P Exam: Normal: HEENT, Normal: Heart, Normal: Lungs, Normal: Extremities, Normal: Abdomen, Normal: Skin and Normal: Neurological Plan Diagnosis/Plan: Unchanged I have reviewed the history and physical and performed a pertinent physical examination on my patient. No changes have occurred unless specified. Time Spent With Patient Time: Total time managing care of this patient today ____ minutes.
[2024-09-19] MEDS: Lactated Ringers 1,000 ML 100 ML IVCONT ×2 (09:09→13:27)
--- NOTE | 2024-09-19 09:10 | P.BOP_ITS ---
Brief Operative Note Date of Service: 09/19/24 Pre-op diagnosis: Morbid obesity with comorbidities (see below) Post-op diagnosis: same (& abdominal adhesions) Procedure: INITIAL PATIENT BMI ON PRESENTATION AT OUR OFFICE: 47.2 kg/m2 LAST BMI BEFORE SURGERY: 43.6 kg/m2 COMORBIDITIES:sleep apnea, hypertension, insulin dependent diabetes, hyperlipidemia, depression, liver fibrosis, esophagitis ?The patient presented to the Weight Management Program with significant obesity that was negatively impacting the patient's comorbidities as listed above.? The program is a phased program with a special focus on preoperative medical weight management to promote substantial weight loss and prepare the patients for the second phase of the program: bariatric surgery. The patient participated in an intensive weekly lifestyle ?intervention and exercise program during which the patient ?has lost between the initial office visit and the last preoperative visit 23.2 lbs, or 9.13% of initial actual body weight. It was deemed appropriate for the patient to now have bariatric surgery. In light of the current Covid-19 pandemic and the well documented strong association of obesity and increased risk of worse outcomes if infected with Covid-19 (REFERENCES: https://pubmed.ncbi.nlm.nih.gov/81359480/ ,? https://pubmed.ncbi.nlm.nih.gov/14799323/ ), any delay in undergoing bariatric surgery may lead to the patient's worsening health condition and increased?risk of more severe Covid-19 disease if infected. In addition a recent?study from [facility] published in [employer] on 09/26/2021 (file:///C: /[email or web address] f) found that, among patients with obesity, substantial weight loss achieved with surgery was associated with improved outcomes of COVID-19 infection. The findings suggest that obesity can be a modifiable risk factor for the severity of COVID-19 infection. In addition, the patient met the BMI-criteria for bariatric surgery based on the BMI on initial presentation. The patient should not be penalized for achieving such weight loss because ?it is not sustainable long-term without surgical intervention and it was achieved in preparation for bariatric surgery ?under my direction and based on my published research ([email or web address]:/[email or web address]).pdf and? https://www.soard.org/article/V2916-1097(65)71230-X/pdf ) ?that a 10% preoperative weight loss improves long-term weight loss after surgery and reduces perioperative complications.? Insurance carriers such as [facility] have endorsed my recommendations ?and have included in their policies criteria to include a 10% preoperative weight loss requirement. PROCEDURE: Esophago-gastroscopy, laparoscopic lysis of adhesions, laparoscopic sleeve gastrectomy and laparoscopic gastropexy INDICATIONS: This is a 49 year-old female who was electively scheduled for laparoscopic, possibly open sleeve gastrectomy. The risks and complications of the procedure were discussed with the patient in advance, particularly the possibility of ; pulmonary embolism; staple line leak; bleeding; GERD; cardiac, pulmonary, or renal complications; as well as long-term problems such as insufficient weight loss, vitamin deficiency, strictures, or ulcers. The patient understood all the risks, and was in agreement to proceed with surgery. DESCRIPTION OF PROCEDURE: After informed consent was obtained from the patient, the patient was given preoperative antibiotics, and was transferred to the operating room. After successful induction of general anesthesia, pneumatic compression devices were placed on both lower extremities. An upper endoscopy was performed next. The oropharynx and esophagus appeared to be within normal limits. There was no diaphragmatic hernia present. The stomach was entered. Then after all fluid and air were suctioned and the stomach was fully decompressed, the scope was withdrawn and secured in the mid esophagus. The patient was then prepped and draped in the usual sterile manner, and abdominal access was established at the right upper quadrant with the Aditya technique. A 12 mm blunt port was inserted, and the abdomen was insufflated with CO2 to a pressure of 15 mmHg. Under direct visualization, additional ports were placed, specifically two 5 mm Versi-step ports to the left upper quadrant, and a 5 mm Versi-Step port to the right upper quadrant. 1% lidocaine plain was used to infiltrate all port sites as well as all fascia defects. Using the EndoClose suture passer device, I placed a #1 Polysorb tie across the falciform ligament in order to retract it up against the abdominal wall and prevent injury of the ligament with our instruments during the procedure. Following that, the patient was placed in a steep reverse Trendelenburg position. An additional 5 mm port was placed to the right flank for the Mediflex retractor that was used to retract the left lobe of the liver. The gastro-esophageal fat pad was opened with the ultrasonic device (Thunderbeat, Olympus) and the anterior esophagus and hiatus were exposed. The angle of His was opened with the ultrasonic device the fundus of the stomach from any diaphragmatic and splenic attachments. I then opened the gastrocolic ligament between the transverse colon and the greater curvature of the stomach with the ultrasonic device to enter the lesser sac and facilitate the ligation of the short gastric vessels. I started at a mid-point along the greater curvature and using the Thunderbeat, all short gastric vessels were divided all the way to the angle of His until the left valentin was completely dissected at its entirety. I then divided the gastro-colic ligament distally to a distance of about 3-4 cm proximal to the pylorus. There were extensive congenital adhesions between the pancreas and posterior gastric wall. Those were lysed completely with the ultrasonic device. Adhesiolysis took approximately 45 min to complete.? The stomach was then divided transversely with two Endo ARMAND-45 purple and four ARMAND-60 articulating purple loads using the SIGNIA stapler and loads. Every effort was made that the gastric sleeve had a tubular shape and an even caliber throughout. Once the sleeve resection was completed, the staple line of the gastric sleeve was reinforced with Hemoclips. The resected stomach was retrieved without difficulty from the Aditya port. A gastropexy was then performed in order to prevent postoperative GERD and partial gastric volvulus. Several interrupted 2.0 Surgidac sutures were placed b etween the sleeve's staple line and the previously divided greater omentum and gastro-colic ligament using the Endo-Stitch device. ?An upper endoscopy was performed. There was no narrowing at the GE junction. The scope was easily advanced all the way to the pylorus which was clearly visualized. There was no narrowing anywhere and the sleeve's caliber was even throughout. The sleeve's staple line was inspected and there was no evidence of ischemia, bleeding or dehiscence. At that point the gastroscope was withdrawn from the patient?s mouth while we were decompressing the bowel and the stomach from any remaining air. I looked into the lesser sac to see how the sleeve was situating and it was situating well. There was no bleeding from the staple line, spleen, or short gastric vessels. The Mediflex retractor was removed, and the undersurface of the liver was inspected and there was no bleeding. The patient was placed in supine position. I closed the fascial defect of the 12 mm port site with a figure of eight #1 Polysorb suture. Then 30cc Ropivacaine plain with 10 mg of Dexamethasone were used to infiltrate the fascial closure as well as all skin incisions. a total of 5ml Zynrelef was applied in the Aditya wound. At this point, the abdomen was deflated, all ports were removed under direct vision, and no bleeding was noted from any of the port sites. The skin incisions were irrigated with saline and were closed with 4-0 absorbable monofilament sutures. Steri-Strips and OpSites were used to cover all incisions. The patient was extubated and was transferred in stable condition to the recovery room for further care. I was present and performed all polanco parts of the procedure. Mr. Allen was the assistant manager airside operations. There were no residents to assist with this case. Jim Stephens MD, PhD, FACS Surgeon: Neville Stephens MD Anesthesia: GETA, local and other (TAP block & 5ml Zynrelef) Was an Garden Machinery Mechanic used for this Procedure?: No Garden Machinery Mechanic: Álvaro Allen Estimated blood loss (mL): 10 IV fluids (mL): 2,500 Urine output (mL): 0 (No Do to record output) Pathology: other (1) Stomach, 2) Gastro-esophageal fat pad) Condition: stable Disposition: PACU
--- NOTE | 2024-09-19 12:11 | PM.DS ---
DS: Providers Provider Date of Service: 09/20/24 Date of admission: 09/19/24 07:04 Primary care physician: Adrienne Downey DS: Summary Hospital Course Hospital Course: ADMITTING DIAGNOSIS: morbid obesity, dm, htn, hld, asthma, depression, elsa ? DISCHARGE DIAGNOSIS: same, s/p laparoscopic sleeve gastrectomy ? PAST SURGICAL HISTORY: septoplasty, cesarian section ? PROCEDURE: upper endoscopy, laparoscopic sleeve gastrectomy ? DISCHARGE SUMMARY: ? History of Present Illness: ? The patient is a?49 year-old woman with a BMI of?47.2 kg/m2 and associated co-morbidities as described above. The patient had extensive work-up,lost?22.6 lbs preoperatively and was electively scheduled for laparoscopic, possible open sleeve gastrectomy and gastropexy. Risks and complications of the surgery were discussed with the patient in advance, particularly the possibility of , pulmonary embolism, anastomotic leak, bleeding, bowel injury, GERD, cardiac, renal or pulmonary complications. The patient understood all the risks and was in agreement with the surgical plan. ? Hospital Course: ? The patient underwent an uneventful laparoscopic sleeve gastrectomy with gastropexy on the day of admission. Postoperatively, the patient was transferred to the surgical floor. The patient received IV Acetaminophen and IV dilaudid for pain control. Patient was started on bariatric phase 1 diet POD #0. On postoperative day one, the patient was feeling well without nausea, vomiting, fevers, or tachycardia. The patient had some mild incisional pain and the abdomen was soft. ? On the morning of postoperative day one, the patient was continued on 1 ounce of water or ice every half hour. During the day, the patient did fairly well, having some incisional pain, but able to ambulate adequately and to tolerate liquids well. ? Since the patient is doing well, we decided that the patient was ready to be discharged. The patient was given instructions to follow-up with me next week and to call my office for any fever over 101, persistent abdominal pain, nausea, vomiting, GERD, symptoms of DVT such as calf tenderness, or leg swelling, or pulmonary embolism such as chest pain or shortness of breath. The patient was also instructed to drink 40-60 ounces of liquids per day using the 1-ounce cups. The patient had been given prescriptions for Tylenol for pain, Zofran prn for nausea, and pantoprazole and carafate previously. The patient was encouraged to ambulate and use the incentive spirometer. The patient was allowed to shower, but no baths, and encouraged to stay active at home. All of these instructions were given to the patient personally. All questions were answered and the patient understood all instructions, the instructions were also given to the patient in print. Time Attestation Total time managing care of this patient today: 25 mintues. Discharge Coordination Time (in mins): 25 Quality: Safe Use of Opioids Does Pt have an Active Cancer Diagnosis on the Problem List?: No Quality: Stroke Does the patient have a stroke diagnosis?: No Physical Exam Vital Signs: Vital Signs: Last Vital Signs Temp 96.9 F 09/19/24 07:17 Pulse 74 09/19/24 07:17 Resp 15 09/19/24 07:17 BP 115/68 09/19/24 07:17 Pulse Ox 96 09/19/24 07:17 O2 Del Method Room Air 09/19/24 07:17 BMI result Body Mass Index 45.3 DS: Data Data Completed and Pending Pending studies at discharge: Pending at discharge 09/19/24 10:52 Surgical [PTH] Routine Labs on day of discharge: Laboratory Results - last 24 hr 09/19/24 09/19/24 07:10 07:42 POC Glucose 140 H Urine Test NEGATIVE Discharge Plan Discharge Anticipated Discharge Date/Time: 09/20/24 10:00 Patient Disposition: Home, Self-Care Discharge Diagnosis: s/p laparoscopic sleeve gastrectomy Referrals: Adrienne Downey [Primary Care Provider] - 1 Week Discharge Medications: Continued pantoprazole 40 mg tablet,delayed release (DR/EC) 40 mg PO DAILY Qty: 90 0RF sucralfate 100 mg/mL suspension 10 ml PO BID Qty: 600 2RF ondansetron 4 mg tablet,disintegrating 4 mg PO Q12H Qty: 20 0RF Rx Instructions: Only take one every 12 hours as needed if you have nausea paroxetine HCl 30 mg tablet 30 mg PO DAILY loratadine [Allergy Relief (loratadine)] 10 mg tablet 10 mg PO DAILY (DME) Omnipod Dash Pods (Gen 4) Cartridge See Rx Instructions subcut Q3D Qty: 5 Rx Instructions: As directed atorvastatin 20 mg tablet 20 mg PO DAILY gabapentin 600 mg tablet 600 mg PO BEDTIME Held Mounjaro 5 mg/0.5 mL pen injector 5 mg subcut QWEEK Qty: 2 2RF Hold Instructions: until discussed with dr gómez Rx Instructions: takes on Mondays Jardiance 25 mg tablet 25 mg PO DAILY Hold Instructions: until discussed with dr gómez lisinopril 2.5 mg tablet 2.5 mg PO DAILY Hold Instructions: follow directions given to you by dr gómez insulin aspart U-100 [Novolog FlexPen U-100 Insulin] 100 unit/mL (3 mL) insulin pen 10 unit subcut TIDAC Hold Instructions: until discussed with dr gómez Discontinued ferrous sulfate [FeroSul] 325 mg (65 mg iron) tablet 325 mg PO DAILY Discharge Orders: Discharge Order (Routine); Ordered 09/20/24 Ordered By: Álvaro Allen Activity on Discharge: No heavy lifting Stand Alone Forms: Patient Portal Discharge page Print Language: Upper Sorbian Care Plan Goals: weight loss Health Concerns: morbid obesity Plan of Treatment: No tub baths, sex or returning to work until discussed at first post op appointment. No exercise, alcohol, tobacco or illegal drug use. Continue to use incentive spirometer hourly while awake. Walk in home for 5- 10 minutes every 2 hours during the first week. Follow all instructions in the bariatric handbook and call with any questions.Discharge Instructions 1. Please call your doctor or come back to the emergency room should any new symptoms arise. 2. You will receive a courtesy call from [facility] 24-48 hours after discharge. 3. Activity: abstain from alcohol, practice limited stair climbing, no bending, no driving, no exercise, no illicit substances, no lifting, no sex, no tub bath, no work. 4. Diet: continue as discussed with Dr. Gómez. 5. Dressing Change/Wound Care: Your incision is covered by clear bandages and guaze underneath. If the area is tender, you may apply an ice pack for short intervals (no more than 20 minutes on, followed by at least 20 minutes off). Do not apply heat. Do not use creams, lotions, or topical antibiotics unless instructed to do so by your surgeon. These can cause infection or allergic reaction. 6. Call your doctor if: - Your temperature exceeds 101.5 F - You experience excessive pain or swelling - You have an unexpected reaction to medication - You have excessive bleeding - You experience continued vomiting/nausea - Your incision begins to separate - Your incision shows signs of infection such as increased redness, swelling, excessive pain, heat, or drainage (light blood or clear fluid is normal) 7. General instructions: No lifting greater than 5 lbs for 1 week and not more than 20lbs the next 3?weeks. No driving until seen at the office in 5-7 days after surgery. If you do not move your bowels in the next 2 days, please tell?Dr. Gómez. Please walk around your home every hour or two to prevent blood clots from forming in your legs. You do not need to wake from sleeping to walk. Please sleep in a bed or couch to prevent kinking at the hips and knees. Please take your incentive spirometer (your lung certified residential medication aide) home with you and use it for the next few days to prevent pneumonia. You may shower, no hot tubs, baths or swimming pools.?Please follow the post op diet instructions you are?given by Dr Gómez? and text me daily at 5-6pm for an update.?If you have any issues or concerns or questions please communicate this to him via text.? The Celebrate shakes have all of the bariatric vitamins you need if you consume these shakes. If you are drinking other protein shakes, you will need to purchase the Celebrate multivitamins and calcium that are available in the hospital gift shop on the first floor of the [facility].??Do not take anything without first discussing with Dr Gómez. Please make sure you are consuming at least 40 ounces of fluids per day starting the?day AFTER your discharge from the hospital. Always drink 1-2 ml per minute using the 5ml?syringe. If you drink faster you may experience?bloating,?gas pain, burping, nausea or heartburn. In that case please slow down your pace and use the syringe to?understand better the?proper?pace and volume of drinking. Do not hesitate to contact the office with any questions at . The patient's medical history has been reviewed and they are considered low risk for post op DVT and therefore DVT prophylaxis is not considered necessary. Travel after surgery was reviewed. The patient has not disclosed any travel plans during the first 30 days after surgery and they have been advised that within the first 30 days after surgery any bus, plane, train or car travel over 2 hours in duration is contraindicated due to the possibility of developing blood clots from immobility. Any travel, needs to include periods of ambulation of 10 minutes in duration every 2 hours.? The patient was instructed to discuss any plans for travel during this period with their bariatric surgeon. Assessment: stable s/p laparoscopic sleeve gastrectomy
[2024-09-19 12:42] LABS: Hematocrit 38.7 % (37.0-47.0)
[2024-09-19 12:57] LABS: Anion Gap 13 (12-20); Blood Urea Nitrogen 11 mg/dL (9-16); Calcium 8.4 mg/dL (8.4-10.2); Carbon Dioxide 22 mmol/L (22-29); Chloride 107 mmol/L (96-108); Creatinine Clr Calc Pharmacy 112.5; Estimated Glomerular Filt Rate > 60; Glucose Random 196 mg/dL (60-115); Sodium 138 mmol/L (135-145)
[2024-09-19 13:20] LABS: Glucose, Whole Blood 203 mg/dL (60-115)
[2024-09-19] MEDS: ondansetron HCL 4 MG/2 ML VIAL IVPUSH ×2 (13:28→20:38)
--- NOTE | 2024-09-19 13:54 | PC.NURSE ---
Addendum entered by Hortencia Altamirano RN 09/19/24 17:57: Pt able to ambulate in hallway with stand by assistance and up to bathroom, tolerated well. Voided 400ml. Original Note: Pt arrived to unit from PACU A&Ox4 but drowsy, alert to voice, able to respond appropriately to admission questions. Pt educated on phase 1 diet, incentive spirometer, and SCD boots. Five 2x2 tegaderm dressings in place, no staining, binder on. IVF infusing per orders. Pt able to make needs known call renteria within reach, all safety measures in place.
[2024-09-19] MEDS: Insulin Lispro 100 UNIT/ML 3 ML VIAL SUBCUT ×2 (16:03→19:57)
[2024-09-19] MEDS: Acetaminophen 1,000 MG/100 ML PIGGYBACK 16.7 MG IV ×2 (16:04→21:49)
[2024-09-19 16:09] LABS: Glucose, Whole Blood 201 mg/dL (60-115)
--- NOTE | 2024-09-19 18:04 | PC.NURSE ---
Pt states she has allergy to Humalog insulin, states it gives her a rash. Pt stated she was ok to take Admelog insulin, which is ordered per sliding scale.
[2024-09-19] MEDS: HYDROmorphone HCl 0.5 MG/0.5 ML SYRINGE 0.25 MG IVPUSH (19:56)
[2024-09-19 20:00] LABS: Glucose, Whole Blood 173 mg/dL (60-115)
[2024-09-20] MEDS: Lactated Ringers 1,000 ML 100 ML IVCONT (00:09)
[2024-09-20 03:17] VITALS: BP 109/60; PULSE 63; RESP 16; TEMP 36.4; O2SAT 94
[2024-09-20] MEDS: Acetaminophen 1,000 MG/100 ML PIGGYBACK 16.7 MG IV (03:30)
[2024-09-20] MEDS: ondansetron HCL 4 MG/2 ML VIAL IVPUSH (05:23)
[2024-09-20 06:38] LABS: MANUAL DIFF FLAG NO
[2024-09-20 06:55] LABS: Anion Gap 14 (12-20); Blood Urea Nitrogen 8 mg/dL (9-16); Calcium 8.5 mg/dL (8.4-10.2); Carbon Dioxide 23 mmol/L (22-29); Chloride 107 mmol/L (96-108); Creatinine Clr Calc Pharmacy 143.7; Estimated Glomerular Filt Rate > 60; Glucose Random 114 mg/dL (60-115); Potassium 3.6 mmol/L (3.3-5.1); Sodium 140 mmol/L (135-145)
[2024-09-20 07:09] LABS: Basophils Percent Auto 0.1 % (0-2); Eosinophils Percent Auto 0.2 % (0-4); Hematocrit 35.7 % (37.0-47.0); Hemoglobin 12.2 g/dl (12.0-16.0); Imm Gran Abs Auto 0.05 X10*3/uL (0.00-0.03); Imm Gran Pct Auto 0.4 % (0.0-0.4); Lymphocytes Absolute Auto 1.6 X10*3/uL (1.2-4.9); Lymphocytes Percent Auto 14.2 % (20-40); Mean Corpuscular HGB Conc 34.2 g/dl (31.0-35.0); Mean Corpuscular Hemoglobin 27.5 pg (27.0-33.0); Mean Corpuscular Volume 80.4 fL (80.0-98.0); Mean Platelet Volume 10.4 fL (9.4-12.3); Monocytes Percent Auto 8.4 % (2-11); Neutrophils Absolute Auto 8.8 x10*3/uL (2.0-8.3); Neutrophils Percent Auto 76.7 % (45-73); Platelet Count 281 X10*3/uL (160-400); Red Blood Count 4.44 X10*6/uL (4.20-5.50); Red Cell Distribution Width 13.5 % (11.0-16.0); White Blood Count 11.5 X10*3/uL (4.8-10.8)
[2024-09-20 07:41] VITALS: BP 103/55; PULSE 62; RESP 16; TEMP 36.3; O2SAT 95
[2024-09-20 07:50] LABS: Glucose, Whole Blood 108 mg/dL (60-115)
[2024-09-20] MEDS: PARoxetine HCL 30 MG TABLET PO (08:00)
--- NOTE | 2024-09-20 09:31 | P.PNGS_ITS ---
Subjective Subjective Date of Service: 09/20/24 Patient reports: no new complaints Interval history: Year old female, postop day 1., status post sleeve gastrectomy performed yesterday. She is tolerating her meal plan and offers no complaints Physical Exam 2 Vital Signs: Vital Signs: Last Vital Signs Temp 97.3 F 09/20/24 07:41 Pulse 62 09/20/24 07:41 Resp 16 09/20/24 07:41 BP 103/55 L 09/20/24 07:41 Pulse Ox 95 09/20/24 07:41 O2 Del Method Room Air 09/20/24 07:41 O2 Flow Rate 2 09/19/24 15:07 BMI result Body Mass Index 44.6 Const: General: healthy appearing and no acute distress Resp: Effort & Inspection: normal respiratory effort Auscultation: clear to auscultation bilaterally Cardio: Rate: regular rate Rhythm: regular rhythm GI: Inspection: Yes incision (Clean, dry, intact.) Auscultation: normal bowel sounds Extrem: General: Yes normal to inspection Objective Data Active Medications Glucose (Glucose Gel 15 Gm Gel..Gram.) 15 gm PO Q15M PRN; Protocol PRN Reason: per Hypoglycemia Standing Ord. Hydromorphone HCl (Hydromorphone Hcl 0.5 Mg/0.5 Ml Syringe) 0.25 mg IVPUSH Q4H PRN; Protocol PRN Reason: Pain, Moderate(Pain Scale 4-6) Last Admin: 09/19/24 19:56 Dose: 0.25 mg Documented By: ABI Lactated Ringer's (Lr) 1,000 mls @ 100 mls/hr IVCONT .Q10H [facility] Last Admin: 09/20/24 00:09 Dose: 100 mls/hr Documented By: ABI Acetaminophen (Ofirmev) 1,000 mg in 100 mls @ 16.7 mls/hr IV .Q6H [facility] Last Admin: 09/20/24 03:30 Dose: 16.7 mls/hr Documented By: ABI Dextrose (D10) 250 mls @ 750 mls/hr IV Q15M PRN; Protocol PRN Reason: per Hypoglycemia Standing Ord. Insulin Human Lispro (Insulin Lispro 100 Unit/Ml 3 Ml Vial) 0 unit SUBCUT QIDACHS [facility]; Protocol Last Admin: 09/20/24 07:53 Dose: Not Given Documented By: PETER Non-Admin Reason: No Insulin Coverage Metoclopramide HCl (Metoclopramide Hcl 10 Mg/2 Ml Vial) 10 mg IVPUSH Q6H PRN PRN Reason: Nausea no effect from zofran Ondansetron HCl (Ondansetron Hcl 4 Mg/2 Ml Vial) 4 mg IVPUSH Q8H [facility] Last Admin: 09/20/24 05:23 Dose: 4 mg Documented By: ABI Paroxetine HCl (Paroxetine Hcl 30 Mg Tablet) 30 mg PO DAILY [facility] Last Admin: 09/20/24 08:00 Dose: 30 mg Documented By: PETER Sodium Chloride (0.9 % Sodium Chloride Flush 3 Ml Syringe) 3 ml IVFLUSH QSHIFT [facility] Last Admin: 09/20/24 07:53 Dose: Not Given Documented By: PETER Non-Admin Reason: IV Running Labs 09/20/24 05:19 09/20/24 05:19 Labs: Laboratory Results - last 24 hr 09/19/24 09/19/24 09/19/24 12:27 13:17 15:47 MCV MCH MCHC RDW Plt Count MPV Immature Gran % (Auto) Neut % (Auto) Lymph % (Auto) [place] % (Auto) Eos % (Auto) Baso % (Auto) Lymph # (Auto) [place] # (Auto) Eos # (Auto) Baso # (Auto) Abs Immat Gran (auto) Absolute Neuts (auto) Absolute Nucleated RBC Nucleated RBC % (auto) Anion Gap 13 Estim Creat Clear Calc 112.5 Estimated GFR > 60 POC Glucose 203 H 201 H Random Glucose 196 H Calcium 8.4 D 09/19/24 09/20/24 09/20/24 19:49 05:19 07:46 MCV 80.4 MCH 27.5 MCHC 34.2 RDW 13.5 Plt Count 281 MPV 10.4 Immature Gran % (Auto) 0.4 Neut % (Auto) 76.7 H Lymph % (Auto) 14.2 L [place] % (Auto) 8.4 Eos % (Auto) 0.2 Baso % (Auto) 0.1 Lymph # (Auto) 1.6 [place] # (Auto) 1.0 Eos # (Auto) 0.0 Baso # (Auto) 0.0 Abs Immat Gran (auto) 0.05 H Absolute Neuts (auto) 8.8 H Absolute Nucleated RBC 0.000 Nucleated RBC % (auto) 0.0 Anion Gap 14 Estim Creat Clear Calc 143.7 Estimated GFR > 60 POC Glucose 173 H 108 Random Glucose 114 Calcium 8.5 Procedures Date of Service Date of Service: 09/20/24 Progress Note: A&P Assessment and plan (1) S/P laparoscopic sleeve gastrectomy: Status: Acute Assessment and Plan: Doing well. Stable for discharge home Plan Discussed case with Dr. Stephens Time Spent With Patient Time: Total time managing care of this patient today ____ minutes. Quality Stroke Does the patient have a stroke diagnosis?: No VTE Prior VTE?: No VTE Risk Level:: Surgical - low VTE Device Contraindication: N/A - Device Ordered VTE Drug Contraindication: Treatment Not Indicated
--- NOTE | 2024-09-20 15:01 | HO.POSTANES ---
Post Anesthesia Evaluation Post Anesthesia Evaluation Date of Service: 09/20/24 Vital Signs: Vital Signs Temp Pulse Resp BP Pulse Ox O2 Del Method 09/20/24 08:50 Room Air 09/20/24 07:41 97.3 F 62 16 103/55 L 95 Room Air 09/20/24 03:17 97.5 F 63 16 109/60 94 Room Air Anesthesia: General Endotracheal-GETA Mental Status: Awake Pain Control: Satisfactory Nausea/Vomiting: None Hydration: Adequate Anesthesia-Related Issues: No Anes. Related Issues
== END 2024-09-20 10:20 | disposition home or self-care (01) | DRG 403 ==
LOC: HO.SSSA 07:06 → HO.S3 12:20
PROVIDERS: Nurse Practitioner; Physician Assistant Surgical; Admitting Provider Surgery; PCP Internal Medicine; Visit Provider Surgery
PROC: 0DB64Z3 Excision of Stomach, Percutaneous Endoscopic Approach, Vertical (ICD-10-PCS; CPT 43845; principal; 2024-09-19 09:00)
DX: E66.01 Morbid (severe) obesity due to excess calories (principal); J84.10 Pulmonary fibrosis, unspecified; Q43.3 Congenital malformations of intestinal fixation; E11.9 Type 2 diabetes mellitus without complications; F32.A Depression, unspecified; J45.909 Unspecified asthma, uncomplicated; G47.33 Obstructive sleep apnea (adult) (pediatric); Z68.41 Body mass index [BMI] 40.0-44.9, adult; I10 Essential (primary) hypertension; Z79.4 Long term (current) use of insulin; Z79.84 Long term (current) use of oral hypoglycemic drugs; Z79.899 Other long term (current) drug therapy
CPT/HCPCS: 36415; 80048; 81025; 82947; 85014; 85018; 85025; 86850; 86900; 86901; 88304; 88305; 88307; 88342; A4649; C9088; C9145; J0131; J1100; J1171; J1956; J2003; J2250; J2405; J2704; J2795; J3010; J7120

== ENCOUNTER → 2024-09-19 07:04 | Outpatient (BNV) | payer OTHER, SELFPAY | PROVIDERS: Admitting Provider Surgery; PCP Internal Medicine; Visit Provider Surgery | DX: E66.01 Morbid (severe) obesity due to excess calories (principal); Z68.41 Body mass index [BMI] 40.0-44.9, adult; Z90.3 Acquired absence of stomach [part of]; Z98.84 Bariatric surgery status | CPT/HCPCS: 43659; 43775; 99024; 99499 ==

== ENCOUNTER 2024-09-26 09:58 | Outpatient (AMB) | payer OTHER, SELFPAY ==
--- OUTSIDE RECORDS SUMMARY | 2024-09-26 10:02 | XMS_ITS | Patient Health Record ---
Author Organization [facility] Address [address], [place] [id number] Support Name Relationship Address Phone Phyllis Rinaldi Emergency Contact [address], [place] [id number] Ephraim Rinaldi Guarantor Unknown [phone] Reason For Referral No Information Plan Of Treatment No Information Insurance Providers Payer Name Payer Address Payer Phone Subscriber Number Group Number Insured Name Patient Relationship to Insured Coverage Start Date Coverage End Date Insurance - None Need to apply for insurance [id number] [place] [id number] Ephraim Rinaldi Self - patient is the insured 1
--- NOTE | 2024-09-26 10:09 | A.OFFVIS_ITS ---
VS Expanded 09/26/24 10:16 BP 111/58 L Blood Pressure Location Rt brachial Blood Pressure Position Sitting Pulse 65 Pulse Source Pulse Oximeter Temp 97.7 F Temperature Source Temporal Artery Scan Pulse Oximetry 97 Oxygen Delivery Method Room Air Height 5 ft 1.5 in Weight 224 lb 12.8 oz BMI 41.8 Body Fat % 44.3 Body Fat Mass 99.4 Fat Free Mass 125.2 Visceral Fat Rating 13.0 Body Water % 39.7 Body Water Mass 89.2 Muscle Mass/Score 118.8 Basal Metabolic Rate/Score 1,752 Intake Visit Reasons: (OV) PO LSG 09/19/24 Allergies aspirin Allergy (Intermediate, Verified 09/26/24 10:14) Swelling latex Allergy (Intermediate, Verified 09/26/24 10:14) Rash Penicillins Allergy (Intermediate, Verified 09/26/24 10:14) Swelling dulaglutide [From Trulicity] Adverse Reaction (Intermediate, Verified 09/26/24 10:14) Itching insulin lispro [From Humalog U-100 Insulin] Adverse Reaction (Intermediate, Verified 09/26/24 10:14) Rash metformin Adverse Reaction (Intermediate, Verified 09/26/24 10:14) Gastrointestinal Upset HPI Comments Details: Patient is a pleasant 49-year-old female who returns to the office today in follow-up. She is 6 days post sleeve gastrectomy performed on 09/19/2024. Weight today is 224.8 lb with a BMI of 41.8. Complains of mild sore throat otherwise tolerating 3 pure protein shakes with Pap scoop each in 8 oz of water and 40-50 oz total of liquids. She has moved her bowels. No abdominal pain. [facility] Medical History Depression Hypertension Hyperlipidemia Neuropathy Right sciatic nerve pain FLORENCIA (obstructive sleep apnea) Asthma Type 2 diabetes mellitus Morbid obesity Surgical History History of esophagogastroduodenoscopy (EGD) Hx of nasal septoplasty Hx of section Family History Father Multiple sclerosis Mother Diabetes mellitus Sister Lupus Brother No problems noted. Daughter No problems noted. Social History Household Members: Children Housing: Apartment Are you a primary rn long term care to a significant other at home: No Do you presently have visiting nurse or other home services: No Alcohol intake: never Patient Tobacco Use Status: Never used Tobacco Physical Exam Vital Signs: Last Vital Signs Temp 97.7 F 09/26/24 10:16 Pulse 65 09/26/24 10:16 BP 111/58 L 09/26/24 10:16 Pulse Ox 97 09/26/24 10:16 Oxygen Delivery Method Room Air 09/26/24 10:16 BMI result Body Mass Index 41.8 GI Inspection: Yes incision (Clean, dry, intact.) Assessment & Plan Assessment & Plan (1) S/P laparoscopic sleeve gastrectomy: Code(s): Z98.84 - Bariatric surgery status Category: Surgical Plan: POD 6 s/p LSG on 09/19/[address] Stephens Weight loss prior to surgery was 22.6 pounds or 8.8 % TBWL. Original weight on 03/24/2024 was 254 pounds and op weight was 231.4 pounds. Be sure to text Dr Stephens exactly 1 week after surgery your weight from your home scale so he can adjust your meal plan. Continue meal plan until f/u poly Rea in 2 weeks May shower, no submersion in bath for another week Continue abdominal binder with activity and exercise for the next 2 weeks. Exercise prior to surgery was treadmill and stationary bike and may resume No abdominal exercises for 6 weeks post operatively Will be emailed link to post op video for review Reminded of the pace of drinking, 2 mL per minute, 1 oz/15 min. Reports blood sugars in the 130s, blood pressure 1 20s and no longer requiring insulin or lisinopril
[2024-09-26 10:16] VITALS: BP 111/58; PULSE 65; TEMP 36.5; O2SAT 97; BMI 41.8
== END 2024-09-26 10:48 | disposition home or self-care (01) ==
PROVIDERS: PCP Internal Medicine; Visit Provider Physician Assistant Surgical
DX: Z98.84 Bariatric surgery status (principal)
CPT/HCPCS: 99024

== ENCOUNTER → 2024-09-26 09:58 | Outpatient (BNVA) | payer OTHER, SELFPAY | PROVIDERS: PCP Internal Medicine; Visit Provider Physician Assistant Surgical | DX: E66.01 Morbid (severe) obesity due to excess calories (principal); Z98.84 Bariatric surgery status; Z68.41 Body mass index [BMI] 40.0-44.9, adult | CPT/HCPCS: 99212 ==

== ENCOUNTER 2024-10-09 13:06 | Outpatient (AMB) | payer OTHER, SELFPAY ==
--- NOTE | 2024-10-09 13:13 | MHC.OFFVISWM ---
Intake Visit Reasons: (OV) PO LSG 09/19/24 Fire Loss Prevention Engineer Required: Yes Fire Loss Prevention Engineer Services: Fire Loss Prevention Engineer Present Fire Loss Prevention Engineer Name: [id number] Allergies aspirin Allergy (Intermediate, Verified 09/26/24 10:14) Swelling latex Allergy (Intermediate, Verified 09/26/24 10:14) Rash Penicillins Allergy (Intermediate, Verified 09/26/24 10:14) Swelling dulaglutide [From Trulicity] Adverse Reaction (Intermediate, Verified 09/26/24 10:14) Itching insulin lispro [From Humalog U-100 Insulin] Adverse Reaction (Intermediate, Verified 09/26/24 10:14) Rash metformin Adverse Reaction (Intermediate, Verified 09/26/24 10:14) Gastrointestinal Upset HPI Comments Details: 49-year-old female, status post laparoscopic sleeve gastrectomy on 09/20/2024. [place] a lump under the midline incision and was concerned. [facility] Medical History Depression Hypertension Hyperlipidemia Neuropathy Right sciatic nerve pain FLORENCIA (obstructive sleep apnea) Asthma Type 2 diabetes mellitus Morbid obesity Surgical History History of esophagogastroduodenoscopy (EGD) Hx of nasal septoplasty Hx of section Family History Father Multiple sclerosis Mother Diabetes mellitus Sister Lupus Brother No problems noted. Daughter No problems noted. Social History Household Members: Children Housing: Apartment Are you a primary day care center director to a significant other at home: No Do you presently have visiting nurse or other home services: No Alcohol intake: never Patient Tobacco Use Status: Never used Tobacco Physical Exam GI Other: Incisions all healing nicely, mild scabbing. Mild induration underneath the midline incision superiorly without fluctuance tenderness or overlying redness Assessment & Plan Assessment & Plan (1) S/P laparoscopic sleeve gastrectomy: Code(s): Z98.84 - Bariatric surgery status Category: Surgical Plan: Mild induration secondary to reactionary inflammation. No evidence of infection. Continue current care. Follow-up next week
--- OUTSIDE RECORDS SUMMARY | 2024-10-09 14:34 | XMS_ITS | Patient Health Record ---
Author Organization [facility] Address [address], [place] [id number] Support Name Relationship Address Phone Phyllis Rinaldi Emergency Contact [address], [place] [id number] Ephraim Rinaldi Guarantor Unknown [phone] Reason For Referral No Information Plan Of Treatment No Information Insurance Providers Payer Name Payer Address Payer Phone Subscriber Number Group Number Insured Name Patient Relationship to Insured Coverage Start Date Coverage End Date Insurance - None Need to apply for insurance [id number] [place] [id number] Ephraim Rinaldi Self - patient is the insured 1
== END 2024-10-09 13:16 | disposition home or self-care (01) ==
LOC: HO.HBS 13:06
PROVIDERS: PCP Internal Medicine; Visit Provider Physician Assistant Surgical
DX: Z98.84 Bariatric surgery status (principal)
CPT/HCPCS: 99024

== ENCOUNTER → 2024-10-09 13:06 | Outpatient (BNVA) | payer OTHER, SELFPAY | PROVIDERS: PCP Internal Medicine; Visit Provider Physician Assistant Surgical | DX: Z48.815 Encounter for surgical aftercare following surgery on the digestive system (principal); Z98.84 Bariatric surgery status | CPT/HCPCS: 99212 ==

== ENCOUNTER 2024-10-13 08:16 | Outpatient (AMB) | payer OTHER, SELFPAY ==
--- NOTE | 2024-10-13 08:20 | A.OFFVIS_ITS ---
VS Expanded 10/13/24 08:26 BP 111/58 L Blood Pressure Location Rt brachial Blood Pressure Position Sitting Pulse 60 Pulse Source Pulse Oximeter Temp 97.2 F Temperature Source Temporal Artery Scan Pulse Oximetry 96 Oxygen Delivery Method Room Air Height 5 ft 1.5 in Weight 220 lb 9.6 oz BMI 41.0 Body Fat % 42.7 Body Fat Mass 94.2 Fat Free Mass 126.4 Visceral Fat Rating 13.0 Body Water % 40.9 Body Water Mass 90.2 Muscle Mass/Score 120.0 Basal Metabolic Rate/Score 1,757 Intake Visit Reasons: (OV) PO LSG 09/19/24 Medical Assistant Per Diem Required: Yes Medical Assistant Per Diem Services: Medical Assistant Per Diem Present Medical Assistant Per Diem Name: [id number] Allergies aspirin Allergy (Intermediate, Verified 10/13/24 08:25) Swelling latex Allergy (Intermediate, Verified 10/13/24 08:25) Rash Penicillins Allergy (Intermediate, Verified 10/13/24 08:25) Swelling dulaglutide [From Trulicity] Adverse Reaction (Intermediate, Verified 10/13/24 08:25) Itching insulin lispro [From Humalog U-100 Insulin] Adverse Reaction (Intermediate, Verified 10/13/24 08:25) Rash metformin Adverse Reaction (Intermediate, Verified 10/13/24 08:25) Gastrointestinal Upset Medication List - Last Reconciled 10/13/24 by ERNESTINE Osman atorvastatin 20 mg PO DAILY gabapentin 600 mg PO BEDTIME insulin pump cart,cont inf,BT (Omnipod Dash Pods (Gen 4) subcutaneous cartridge) As directed loratadine (Allergy Relief (loratadine)) 10 mg PO DAILY pantoprazole 40 mg PO DAILY paroxetine HCl 30 mg PO DAILY sucralfate 10 mL PO BID HPI Comments Details: This?a?49?yo female who is s/p LSG without hiatal hernia repair on?09/19/2024. Presents for 3 week post op visit. Weight today is 220.6 pounds, with a BMI of 41. There has been a 33.4 pound weight loss,(initial weight 254 pounds) since starting the program on 03/24/2024 reflecting a 13.1 % total body weight loss and a weight loss of 10.8 pounds since surgery (operative weight 231.4 pounds) reflecting a 4.6 % TBWL since surgery. No complaints of nausea, emesis, abdominal pain or reflux. Reports infrequent but normal bowel movements every 2- 3 days and uses stool softeners regularly. Present meal plan includes: 3 Premier protein shakes 1 scoop, 1 scoop, 1/2 scoop Pure protein bar Drinking 40 oz water ? Exercise routine includes: [employer] gym, 5 x per week, [address], walking on the treadmill and stationary bike PFSH Medical History Depression Hypertension Hyperlipidemia Neuropathy Right sciatic nerve pain FLORENCIA (obstructive sleep apnea) Asthma Type 2 diabetes mellitus Morbid obesity Surgical History S/P laparoscopic sleeve gastrectomy History of esophagogastroduodenoscopy (EGD) Hx of nasal septoplasty Hx of section Family History Father Multiple sclerosis Mother Diabetes mellitus Sister Lupus Brother No problems noted. Daughter No problems noted. Social History Household Members: Children Housing: Apartment Are you a primary manager respiratory care to a significant other at home: No Do you presently have visiting nurse or other home services: No Alcohol intake: never Patient Tobacco Use Status: Never used Tobacco Physical Exam Vital Signs: Last Vital Signs Temp 97.2 F 10/13/24 08:26 Const General: healthy appearing and no acute distress Resp Effort & Inspection: normal respiratory effort Auscultation: clear to auscultation bilaterally Cardio Rate: regular rate Rhythm: regular rhythm GI Inspection: Yes incision (1.5 cm induration midline incision, no fluctuance) Auscultation: normal bowel sounds Extrem General: Yes normal to inspection Assessment & Plan Assessment & Plan (1) S/P laparoscopic sleeve gastrectomy: Code(s): Z98.84 - Bariatric surgery status Category: Surgical Plan: Encouraged to increase exercise to 400 calories burned per session, 5 days per week. Continue current meal plan. Continue to text with wheat clear weights and with any questions. Return to clinic as scheduled
[2024-10-13 08:26] VITALS: BP 111/58; PULSE 60; TEMP 36.2; O2SAT 96; BMI 41.0
--- OUTSIDE RECORDS SUMMARY | 2024-10-13 08:26 | XMS_ITS | Continuity of Care Document ---
Author Organization [facility] Address [address] [place] [address]- Care Team Providers Care Borough Coordinator Name Role Phone Nasreen SHANE, Adrienne Primary Care Physician ( [phone] Encounter [facility] Date(s): 09/10/24 - 10/10/24 [facility] [address] [place] [address]- Encounter Type: Triage Allergies, Adverse Reactions, Alerts Substance Criticality Severity Reaction Reaction Severity Status penicillin rash and itching Active aspirin eye swelling Active HumaLOG Rash Active Latex Unable to assess criticality Persistent Mild ITCH Active metFORMIN abdominal pain Activ e Trulicity Pen rash Active Ozempic (0.25 mg or 0.5 mg dose) pain Active Immunizations Given and Recorded Vaccine Date [...] 04/25/2011 6Admin Note: VIS GIVEN 7Result Comment: [facility] [id number] 8Admin Note: VIS 07-06-09 9Admin Note: vis given vis date 12/04--A 10Admin Note: vis given 11Admin Note: VIS given in Mauritian Medications Alcohol Wipes See Instructions, # 1 box, Refills 3, Tot. Refills 3, Maintenance, use as didrected when checkin blood sugar E11.9, 05/23/17 9:51:21 AM EDT, Compound Start Date: 05/23/17 Status: Ordered Quantity: 1.0 Unit: box Repeat number: 4 atorvastatin 20 mg oral tablet 1 tablet, By Mouth, Daily, FOR CHOLESTEROL AND TO PROTECT HEART.; 90 DAY SUPPLY; [place], # 90 tablet, 3 Refills, Maintenance, 12/31/23 2:15:00 PM EDT, [facility] #[id number], 157, cm, 12/31/23 13:49:00 EDT, Height, 119, kg, 12/31/23 13:49:00 EDT, Dry Weight Start Date: 12/31/23 Status: Ordered Quantity: 90.0 Unit: tablet Repeat number: 4 Baqsimi One Pack 3 mg nasal powder = 3 mg, Nares, Both, Once, # 1 each, 0 Refills, Soft Stop, 06/03/24 2:45:00 PM EDT, [facility] #[id number], Partial fill upon patient request if the [...] 0 Refills, Maintenance, 02/20/24 11:43:00 AM EDT, [facility] #[id number], 7, APPLY TOPICALLY FOUR TIMES DAILY, 157, cm, 01/28/24 15:42:00 EDT, Height, 118.18, kg, 01/28/24 15:42:00 EDT, Dry Weight Start Date: 02/20/24 Status: Ordered Quantity: 100.0 Unit: g Repeat number: 1 FeroSul 325 mg oral tablet 1 tablet, By Mouth, Daily, # 90 tablet, 1 Refills, Maintenance, 06/16/24 11:15:00 PM EDT, [facility] #[id number], 157, cm, 06/03/24 14:20:00 EDT, Height, 114.09, kg, 06/03/24 14:20:00 EDT, Dry Weight Start Date: 06/16/24 Status: Ordered Quantity: 90.0 Unit: tablet Repeat number: 1 gabapentin 600 mg oral tablet 1 tablet, By Mouth, Daily at bedtime, # 90 tablet, 3 Refills, Maintenance, 12/31/23 2:15:00 PM EDT, [facility] #[id number], 157, cm, 12/31/23 13:49:00 EDT, Height, 119, kg, 12/31/23 13:49:00 EDT, Dry Weight Start Date: 12/31/23 Status: Ordered Quantity: 90.0 Unit: tablet Repeat number: 4 hydrOXYzine pamoate 50 mg oral capsule 1 capsule, By Mouth, 3 times a day, PRN NEEDED FOR ANXIETY, # 90 capsule, 0 Refills, Maintenance, 09/02/24 4:18:00 PM EST, [facility] #[id number], 157, cm, 06/23/24 13:59:00 EDT, Height, 114.81, kg, 06/23/24 13:59:00 EDT, Dry Weight Start Date: 09/02/24 Status: Ordered Quantity: 90.0 Unit: capsule Repeat number: 1 Lantus Solostar Pen 100 units/mL subcutaneous solution = 50 units, Subcutaneous Infusion, Daily, to use only if insulin pump is not working, # 15 mL, 6 Refills, Maintenance, 06/23/24 2:49:00 PM EDT, [facility] #[id number], Partial fill upon patient request if the [...] Replace Required Details, Route to Pharmacy Electronically, [facility] #[id number], 157, cm, 12/31/23 13:49:00 EDT, Height, 119, kg, 12/31/23 13:49:00 EDT, Dry Weight Start Date: 12/31/23 Status: Ordered Quantity: 90.0 Unit: tablet Repeat number: 4 loratadine 10 mg oral tablet 1, tablet, By Mouth, Daily, PRN, # 90 tablet, Refills 1, Tot. Refills 1, Maintenance, NEEDED FORALLERGY SYMPTOMS, 12/31/23 2:29:00 PM EDT, Route to Pharmacy Electronically, [facility] #[id number], 157, cm, 12/31/23 13:49:00 EDT, Height, 119, kg, 12/31/23 13:49:00 EDT, Dry Weight Start Date: 12/31/23 Status: Ordered Quantity: 90.0 Unit: tablet Repeat number: 2 NovoLOG 100 units/mL injectable solution See Instructions, for use with OmniPod infusion system. TDD 80 units, # 30 mL, 0 Refills, Maintenance, 06/03/24 2:45:00 PM EDT, [facility] #[id number], Partial fill upon patient request if the prescription is for a schedule II opioid drug., 157, cm, 06/03/24 14:20:00 EDT, Height, 114.09, kg, 06/03/24 14:20:00 EDT, Dry Weight Start Date: 06/03/24 Status: Ordered Quantity: 30.0 Unit: mL Repeat number: 1 NuLYTELY Lemon Elim Ira oral powder for reconstitution See Instructions, as directed by office, # 1 each, 0 Refills, Maintenance, 03/12/24 12:55:00 PM EDT,REC Powder, [facility] #[id number], ok to sub for any gallon prep, [...] 3 Refills, Maintenance, 12/31/23 2:30:00 PM EDT, [facility] #[id number], 157, cm, 12/31/23 13:49:00 EDT, Height, 119, kg, 12/31/23 13:49:00 EDT, Dry Weight Start Date: 12/31/23 Status: Ordered Quantity: 90.0 Unit: tablet Repeat number: 4 Pen [place], 31 G x 5 mm BD Ultra [...] Quantity: 120.0 Unit: each Repeat number: 7 Tylenol Extra Strength 500 mg oral tablet 2 tablet = 1,000 mg, By Mouth, 3 times a day, PRN as needed for headaches/body aches, # 50 tablet, 0 Refills, Maintenance, 10/10/22 7:43:00 PM EST, Tablet, [facility] #[id number], Partial fill upon patient request if the [...] 0 Refills, Maintenance, 01/24/24 12:36:00 PM EDT, [facility] #[id number], 157, cm, 12/31/23 13:49:00 EDT, Height, 119, [...] vertigo Confirmed Active Herpes labialis Confirmed Active S/P laparoscopic sleeve gastrectomy 5 Confirmed Active Hyperlipidemia Confirmed Active Right knee pain 6 Confirmed Active Low back pain 7, 8, 9 Confirmed Active Microalbuminuria 10 Confirmed Active Morbid Obesity Confirmed Active Non-proliferative diabetic retinopathy 11 Confirmed Active Severe obesity Confirmed Active Bilateral shoulder pain 12, 13 Confirmed Active Steatohepatitis 14, 15, 16 Confirmed Active 1-only uses albuterol when associated with URI 2Normal spirometry. Lung volumes are normal. Diffusing capacity is mildly reduced. 3-negative January 2023 4-Nov 17-2016. Due in 5 years=Nov 2021 5Dec 2023 6MRI: : 1. Diminutive and slightly lax contour of the ACL, suggestive of a chronic partial tear. 2. Focal free margin truncation in the posterior third of the medial meniscus near its posterior tibial attachment, likely free margin radial tear. 3. Mild medial compartment degenerative change. ----- 7-improved with one injection at [facility], after being evaluated by ortho ([facility]) 8MRI January 2017- Degenerative changes at the L4-L5 level with development of left lateral recess stenosis and crowding of the traversing left L5 nerve root and increased mild to moderate left neural foraminal stenosis. 9-Minimal retrolisthesis of L3-L4, and L4-L5. 10-history of microalbuminuria 11-OD 12- Coarse calcification adjacent to the humeral head, suggestive of calcific tendinopathy. 13-has followed with the [facility], and has improved with cortisone shots 14-Seen again in [place] 2023 15CT scan: Hepatosplenomegaly and hepatic steatosis (09-27-2011). 16Abd US (02/16/2011) - Fatty infiltration of the liver is seen. The examination is otherwise unremarkable. Social History Social History Type Response Smoking Status Never (less than 100 in lifetime) entered on: 02/14/23 Sex Sex Representation Female (finding) Patient Care team information Care Team Personnel Name: Adrienne Downey MD Position: [facility] Physician - Primary Care Member Role: PCP Address: [address] [place] [address]- Telecom: Care Team Related Persons Name: IVIS BAEZA Name: TOO MCDONOUGH Insurance Providers Guarantor name: CARYN MCDONOUGH Health Plan Information #: 1 Payer: [employer] Member Number: NA Policy Number: NA Group Number: NA Health Plan Information #: 2 Payer: [employer] Member Number: NA Policy Number: NA Group Number: NA
--- OUTSIDE RECORDS SUMMARY | 2024-10-13 08:26 | XMS_ITS | Patient Health Record ---
Author Organization [facility] Address [address], [place] [id number] Support Name Relationship Address Phone Phyllis Rinaldi Emergency Contact [address] [place], [place] [phone] Ephraim Rinaldi Guarantor Unknown [phone] Reason For Referral No Information Plan Of Treatment No Information Insurance Providers Payer Name Payer Address Payer Phone Subscriber Number Group Number Insured Name Patient Relationship to Insured Coverage Start Date Coverage End Date Insurance - None Need to apply for insurance [id number] [place] [id number] Ephraim Rinaldi Self - patient is the insured 1
== END 2024-10-13 08:57 | disposition home or self-care (01) ==
PROVIDERS: PCP Internal Medicine; Visit Provider Physician Assistant Surgical
DX: Z98.84 Bariatric surgery status (principal)
CPT/HCPCS: 99024

== ENCOUNTER → 2024-10-13 08:16 | Outpatient (BNVA) | payer OTHER, SELFPAY | PROVIDERS: PCP Internal Medicine; Visit Provider Physician Assistant Surgical | DX: Z48.815 Encounter for surgical aftercare following surgery on the digestive system (principal); Z98.84 Bariatric surgery status | CPT/HCPCS: 99212 ==

== ENCOUNTER → 2024-10-15 08:16 | Outpatient (AMB) | payer OTHER, SELFPAY ==
--- NOTE | 2024-10-15 08:00 | A.OFFWM_ITS ---
Intake Intake Visit Reasons: VIDEO PO LSG 09/19/24 Allergies aspirin Allergy (Intermediate, Verified 10/13/24 08:25) Swelling latex Allergy (Intermediate, Verified 10/13/24 08:25) Rash Penicillins Allergy (Intermediate, Verified 10/13/24 08:25) Swelling dulaglutide [From Trulicity] Adverse Reaction (Intermediate, Verified 10/13/24 08:25) Itching insulin lispro [From Humalog U-100 Insulin] Adverse Reaction (Intermediate, Verified 10/13/24 08:25) Rash metformin Adverse Reaction (Intermediate, Verified 10/13/24 08:25) Gastrointestinal Upset PFSH Medical History Depression Hypertension Hyperlipidemia Neuropathy Right sciatic nerve pain FLORENCIA (obstructive sleep apnea) Asthma Type 2 diabetes mellitus Morbid obesity Surgical History S/P laparoscopic sleeve gastrectomy History of esophagogastroduodenoscopy (EGD) Hx of nasal septoplasty Hx of section Family History Father Multiple sclerosis Mother Diabetes mellitus Sister Lupus Brother No problems noted. Daughter No problems noted. Social History Household Members: Children Housing: Apartment Are you a primary child care counselor to a significant other at home: No Do you presently have visiting nurse or other home services: No Alcohol intake: never Patient Tobacco Use Status: Never used Tobacco Behavioral Health Assessment Weight Management Therapy Therapy Notes Details Subjective: Patient reports overall progress with post-operative recovery, adhering to the prescribed meal plan and exercise regimen. However, she expresses frustration with the ubrcyd-[id number] weight loss and occasional hunger, noting that the hunger has been more persistent than anticipated. She had expected to feel less hungry at this stage. Patient continues bi-weekly counseling sessions with her therapist to support her emotional and mental well-being throughout her weight loss journey. Objective: -Patient presents for a routine post-op follow-up visit. During the session, we discussed her post-operative progress, including emotional and psychological factors influencing her journey. We worked on identifying small, non-scale related goals to help boost motivation and reduce frustration. -Constructive feedback was provided, wit h an emphasis on habit-building strategies to promote consistency. Patient was reminded about the normalcy of setbacks and given tools to manage potential relapses, including seeking support, engaging in coping activities, and maintaining therapy appointments. -A PHQ-9 assessment was administered, wi th no significant depressive symptoms identified at this time. -Patient was informed that while a follo w-up with this provider is not necessary at this time, she may request a behavioral health visit if needed. Additionally, she was encouraged to join a bariatric support group on Facebook for additional community support. Assessment/Response: * Mental status: WNL * Risk reported/identified: WNL. No new or concerning risks identified; stable and engaged in treatment. Patient remains active, engaged, and motivated in her weight loss journey. Food/Weight/Diet Expectations of change PT reached the 10% required before weight-loss surgery . -Start weight: 254Lbs -Weight on surgery day: 231.4 Lbs -Most recent weight 10/13/2023: 220 Lbs . New meal plan: 3 Pure protein shakes, 1 bar and 50oz of water. Exercise plan: burning 400 calories at day, 5 days at week. Questionnaires PHQ-9 Over the last 2 weeks, how often have you been bothered by any of the following problems? 1. Little interest or pleasure in doing things: not at all 2. Feeling down, depressed, or hopeless: several days 3. Trouble falling or staying asleep, or sleeping too much: not at all 4. Feeling tired or having little energy: several days 5. Poor appetite or overeating: not at all 6. Feeling bad about yourself - or that you are a failure or have let yourself or your family down: several days (Frustrated at times.) 7. Trouble concentrating on things, such as reading the newspaper or watching television: not at all 8. Moving or speaking so slowly that other people could have noticed. Or the opposite - being so fidgety or restless that you have been moving around a lot more than usual: not at all 9. Thoughts that you would be better off or of hurting yourself in some way: not at all Total score: 3 Depression Screening Interpretation: Negative Depression Screening Done: Yes 08298 - PHQ-9 Billing: Yes Source: Developed by Drs. Irvin L. BookerMicaela schwartz, Ignacio Shah and colleagues, with an educational sayra from [employer]. Assessment & Plan Assessment & Plan (1) Morbid obesity: Code(s): E66.01 - Morbid (severe) obesity due to excess calories (2) Depression: Code(s): F32.A - Depression, unspecified Qualifiers: Depression Type: unspecified Qualified Code(s): F32.A - Depression, unspecified (3) Anxiety disorder, unspecified: Code(s): F41.9 - Anxiety disorder, unspecified Plan * Continue with bi-weekly therapy sessions with her current counselor, and adherence to the provider?s weight loss plan. * Reinforce the importance of setting realistic, txx-jqghd-dzircpe goals. * Encourage continued use of coping strategies and engagement in community support groups, such as the bariatric Facebook support group. * Patient to reach out for additional behavioral health support if needed. Next isabel: None. Telehealth Telehealth Telehealth Platform: [employer] Location of provider rendering services: other Location of patient: address on file Patient Identification confirmed using: Name, : Yes Telehealth method: voice only Patient verbally consented to treatment: Yes Patient verbally consented to billing insurance company: Yes Patient informed of any privacy concerns related to visit: Yes Minutes spent on Phone/Video with Pt.: 55 Coding Level of Care Code Established Pt Tele Psytx >53 mins (38919) Patient Type Established Diagnoses Morbid obesity E66.01 Depression, unspecified depression type F32.A Depression Type: unspecified Anxiety disorder, unspecified F41.9 Additional Codes PHQ-9 - 80922 - PHQ-9 Billing: Yes ([id number]) Time Spent (min) 55
== END ==
PROVIDERS: PCP Internal Medicine; Visit Provider Counselor Mental Health
DX: F32.1 Major depressive disorder, single episode, moderate (principal); F41.9 Anxiety disorder, unspecified; E66.01 Morbid (severe) obesity due to excess calories
CPT/HCPCS: 90837

== ENCOUNTER 2024-11-24 12:57 | Emergency (ER) | payer OTHER, SELFPAY ==
--- NOTE | ~2024-11-24 | US_ITS ---
CLINICAL HISTORY: GB, CBD, pain US abdomen limited Comparison: Ultrasound of right upper quadrant from 04/15/2024. Findings: Portions of the gallbladder are obscured. No gallbladder wall thickening or pericholecystic fluid. No shadowing stones in the imaged gallbladder lumen with reverberation artifacts present. Imaged CBD is nondilated measuring 5 mm diameter. No right upper quadrant ascites or right pleural effusion in the [id number]. Aorta and IVC are obscured by overlying bowel gas. Majority of the pancreas obscured by overlying bowel gas. Partially imaged liver demonstrates increased echogenicity as can be seen with steatotic change. The partially imaged right kidney is unremarkable. IMPRESSION: 1. No ultrasound findings of acute cholecystitis. 2. Imaged CBD is nondilated. This document has been electronically signed by: Isidro Ashby MD on 11/24/2024 21:22:36
[2024-11-24 13:46] VITALS: BP 120/76; PULSE 80; RESP 20; TEMP 36.4; O2SAT 99; BMI 38.9
--- NOTE | 2024-11-24 13:47 | ED_ITS ---
HPI - Abdominal Pain General Chief Complaint: Nausea/Vomiting/Diarrhea Stated Complaint: abd pain vomiting Time Seen by Provider: 11/24/24 19:31 Source: patient Limitations: language barrier History of Present Illness ED Provider: Ayala Do PA-C HPI narrative: 49-year-old female with a history of morbid obesity now status post sleeve gastrectomy September [address] Bauman, hypertension, hyperlipidemia, diabetes, sleep apnea and asthma who presents with upper abdominal discomfort x2 weeks. Pain is nonradiating, unable to describe the nature of her discomfort. Associated nausea vomiting diarrhea. Denies sick contacts with same symptoms. Patient states she has been following her prescribed diet as directed, despite her symptoms, the patient has not followed up with her surgeon or primary care. Related Data Home Medications ?Medication ?Instructions ?Recorded ?Confirmed loratadine 10 mg tablet (Allergy 10 mg PO DAILY 08/30/20 10/13/24 Relief (loratadine)) paroxetine HCl 30 mg tablet 30 mg PO DAILY 08/30/20 10/13/24 atorvastatin 20 mg tablet 20 mg PO DAILY 03/30/23 10/13/24 gabapentin 600 mg tablet 600 mg PO BEDTIME 03/30/23 10/13/24 insulin pump cart,cont inf,BT #5 ea 07/03/24 10/13/24 (Omnipod Dash Pods (Gen 4) subcutaneous cartridge) Previous Rx's ?Medication ?Instructions ?Recorded pantoprazole 40 mg tablet,delayed 40 mg PO DAILY #90 tabs 09/10/24 release sucralfate 100 mg/mL oral 10 ml PO BID #600 mL 09/10/24 suspension sucralfate 100 mg/mL oral 10 ml PO QID PRN reflux #300 mL 11/24/24 suspension (Carafate) Allergies Allergy/AdvReac Type Severity Reaction Status Date / Time aspirin Allergy Intermediate Swelling Verified 11/24/24 13:47 latex Allergy Intermediate Rash Verified 11/24/24 13:47 Penicillins Allergy Intermediate Swelling Verified 11/24/24 13:47 dulaglutide [From Trulicity] AdvReac Intermediate Itching Verified 11/24/24 13:47 insulin lispro AdvReac Intermediate Rash Verified 11/24/24 13:47 [From Humalog U-100 Insulin] metformin AdvReac Intermediate Gastrointestinal Verified 11/24/24 13:47 Upset Review of Systems Review of Systems Yes all other systems are reviewed and are negative Constitutional: Denies fatigue and Denies fever(s) Cardiovascular: Denies chest pain and Denies dyspnea Respiratory: Denies cough and Denies dyspnea Gastrointestinal: Reports abdominal pain, Reports diarrhea, Reports nausea and Reports vomiting Musculoskeletal: Denies back pain Endocrine: Denies fatigue COUNTS INCLUDE 234 BEDS AT THE [facility] Past Medical History Attestation statement: The following information was validated with the patient. Medical History Depression Hypertension Hyperlipidemia Neuropathy Right sciatic nerve pain FLORENCIA (obstructive sleep apnea) Asthma Type 2 diabetes mellitus Morbid obesity Surgical History S/P laparoscopic sleeve gastrectomy History of esophagogastroduodenoscopy (EGD) Hx of nasal septoplasty Hx of section Family History Family History Father Multiple sclerosis Mother Diabetes mellitus Sister Lupus Brother No problems noted. Daughter No problems noted. Social History Social History Household Members: Children Housing: Apartment Are you a primary child care attendant to a significant other at home: No Do you presently have visiting nurse or other home services: No Alcohol intake: never Patient Tobacco Use Status: Never used Tobacco Advance Directives: No Advance Directives Information Provided: No Physical Exam ED Vital Signs: Vital Signs - 24 hr 11/24/24 13:46 Temperature 97.5 F Pulse Rate 80 Respiratory Rate 20 Blood Pressure 120/76 Pulse Oximetry 99 Oxygen Delivery Method Room Air BMI result Body Mass Index 38.9 Const Other: Alert, appears older than stated age Orientation/consciousness: patient oriented x3 Resp Effort & Inspection: normal respiratory effort Cardio Other: Normal peripheral perfusion GI Other: Abdomen is soft, nontender nondistended obese abdomen no guarding Skin Other: Warm dry no rash Neuro General: patient oriented x3, gait normal, no focal motor deficits and CN's II- XI intact bilaterally Psych Other: Cooperative Course Course Course Narrative: This is a Rapid Medical Examination (RME) performed by Lachelle Hernandez PA-C in triage. Full HPI, ROS, assessment and treatment plan per primary provider in the Main ED. 49 yo female hx of T2DM, HTN, HDL, asthma, FLORENCIA, depression here for eval of 07/10 epigastric abd pain, N/V/D x2 weeks. hx gastric sleeve [address] gómez' office, told to come to ED. no known sick contacts. Plan: labs, will defer imaging to primary provider Reevaluation(s) Reevaluation #1: Carafate and Zofran were effective, we will send with the script, I have told the patient she needs to follow up with her surgeon to call tomorrow. Medical Decision Making Medical Decision Making MDM Narrative: 49-year-old female with a history of morbid obesity now status post sleeve gastrectomy September [address] Bauman, hypertension, hyperlipidemia, diabetes, sleep apnea and asthma who presents with upper abdominal discomfort x2 weeks. Pain is nonradiating, unable to describe the nature of her discomfort. Associated nausea vomiting diarrhea. Denies sick contacts with same symptoms. Patient states she has been following her prescribed diet as directed, despite her symptoms, the patient has not followed up with her surgeon or primary care. Wound: Sleeve gastrectomy, diabetes, obesity History: Per patient I have considered the following differential diagnoses: GERD, gastritis, perforated ulcer, nonadherence with her bariatric diet, biliary colic, cholecystitis Plan: Screening labs were obtained from triage and are unremarkable. The patient was likely not adhering to her prescribed diet, given the fact that she has had symptoms for 2 weeks, with a unremarkable labs. I am also considering biliary colic versus cholecystitis given upper abdominal discomfort, we will obtain an ultrasound. Thought about perforation, however there are no peritoneal signs on exam, and again she has had symptoms for 2 weeks. We will be giving Carafate and Zofran. I have independently reviewed the following tests: Labs: No leukocytosis, not anemic, no electrolyte abnormality, viral panel negative Ultrasound right upper quadrant:IMPRESSION: 1. No ultrasound findings of acute cholecystitis. 2. Imaged CBD is nondilated. This document has been electronically signed by: Isidro Ashby MD on 11/24/2024 21:22:36 Lab Data 11/24/24 13:55 11/24/24 13:55 Labs: Lab Results 11/24/24 Range/Units 13:55 WBC 9.3 (4.8-10.8) X10*3/uL RBC 5.20 (4.20-5.50) X10*6/uL Hgb 14.3 (12.0-16.0) g/dl Hct 42.9 D (37.0-47.0) % MCV 82.5 (80.0-98.0) fL MCH 27.5 (27.0-33.0) pg MCHC 33.3 (31.0-35.0) g/dl RDW 14.1 (11.0-16.0) % Plt Count 255 (160-400) X10*3/uL MPV 9.9 (9.4-12.3) fL Immature Gran % (Auto) 0.2 (0.0-0.4) % Neut % (Auto) 57.4 (45-73) % Lymph % (Auto) 32.9 (20-40) % [place] % (Auto) 6.6 (2-11) % Eos % (Auto) 2.7 (0-4) % Baso % (Auto) 0.2 (0-2) % Lymph # (Auto) 3.0 (1.2-4.9) X10*3/uL [place] # (Auto) 0.6 (0.1-1.2) X10*3/uL Eos # (Auto) 0.3 (0.0-0.4) X10*3/uL Baso # (Auto) 0.0 (0.0-0.2) X10*3/uL Abs Immat Gran (auto) 0.02 (0.00-0.03) X10*3/uL Absolute Neuts (auto) 5.3 (2.0-8.3) x10*3/uL Absolute Nucleated RBC 0.000 (0.0-0.012) X10*3/uL Nucleated RBC % (auto) 0.0 (0.0-0.2) /100WBC Sodium 141 (135-145) mmol/L Potassium 3.9 (3.3-5.1) mmol/L Chloride 112 H (96-108) mmol/L Carbon Dioxide 20 L (22-29) mmol/L Anion Gap 13 (12-20) BUN 7 L (9-16) mg/dL Creatinine 0.62 (0.5-1.4) mg/dL Estim Creat Clear Calc 115.7 Estimated GFR > 60 Random Glucose 99 (60-115) mg/dL Calcium 9.6 D (8.4-10.2) mg/dL Magnesium 2.2 (1.6-2.6) mg/dL Total Bilirubin 1.3 H (0.0-1.0) mg/dL AST 26 (5-31) U/L ALT 20 (0-31) U/L Alkaline Phosphatase 110 (39-117) U/L Total Protein 8.8 H (6.5-8.0) g/dL Albumin 4.2 (3.5-5.0) g/dL Lipase 19 (8-78) U/L Influenza Type A (PCR) NEGATIVE (Negative) Influenza Type B (PCR) NEGATIVE (Negative) RSV RNA Qual (PCR) NEGATIVE (Negative) SARS-CoV-2 RNA (RT-PCR) NEGATIVE (Negative) Medications Administered Discontinued Medications Generic Name Dose Route Start Last Admin Trade Name Freq PRN Reason Stop Dose Admin Ondansetron HCl 4 mg 11/24/24 20:07 11/24/24 20:24 Ondansetron Odt 4 Mg Tab.Rapdis TRANSLINGU 11/24/24 20:08 4 mg ONCE ONE Administration Sucralfate 1 gm 11/24/24 20:07 11/24/24 20:24 Sucralfate Oral Suspension 1 Gm/10 Ml Oral.Susp PO 11/24/24 20:08 1 gm ONCE ONE Administration Discharge Plan Discharge Clinical Impression: Epigastric abdominal pain Patient Disposition: Home, Self-Care Instructions: Epigastric Pain (ED) Additional Instructions: All of your screening labs were normal, the ultrasound of your upper abdomen was normal as well. Be sure to follow your bariatric prescribed diet. Use the Carafate as needed for upper abdominal discomfort. You need to follow up with your surgeon, call tomorrow to make an appointment. Prescriptions: New sucralfate [Carafate] 100 mg/mL suspension 10 ml PO QID PRN (Reason: reflux) Qty: 300 0RF Rx Instructions: swish in mouth and swallow; use after food/drink No Action pantoprazole 40 mg tablet,delayed release (DR/EC) 40 mg PO DAILY Qty: 90 0RF sucralfate 100 mg/mL suspension 10 ml PO BID Qty: 600 2RF paroxetine HCl 30 mg tablet 30 mg PO DAILY loratadine [Allergy Relief (loratadine)] 10 mg tablet 10 mg PO DAILY (DME) Omnipod Dash Pods (Gen 4) Cartridge See Rx Instructions subcut Q3D Qty: 5 Rx Instructions: As directed atorvastatin 20 mg tablet 20 mg PO DAILY gabapentin 600 mg tablet 600 mg PO BEDTIME Print Language: Malay
[2024-11-24 13:59] LABS: MANUAL DIFF FLAG NO
[2024-11-24 14:03] LABS: Basophils Percent Auto 0.2 % (0-2); Eosinophils Absolute Auto 0.3 X10*3/uL (0.0-0.4); Eosinophils Percent Auto 2.7 % (0-4); Hematocrit 42.9 % (37.0-47.0); Hemoglobin 14.3 g/dl (12.0-16.0); Imm Gran Abs Auto 0.02 X10*3/uL (0.00-0.03); Imm Gran Pct Auto 0.2 % (0.0-0.4); Lymphocytes Percent Auto 32.9 % (20-40); Mean Corpuscular HGB Conc 33.3 g/dl (31.0-35.0); Mean Corpuscular Hemoglobin 27.5 pg (27.0-33.0); Mean Corpuscular Volume 82.5 fL (80.0-98.0); Mean Platelet Volume 9.9 fL (9.4-12.3); Monocytes Absolute Auto 0.6 X10*3/uL (0.1-1.2); Monocytes Percent Auto 6.6 % (2-11); Neutrophils Absolute Auto 5.3 x10*3/uL (2.0-8.3); Neutrophils Percent Auto 57.4 % (45-73); Platelet Count 255 X10*3/uL (160-400); Red Cell Distribution Width 14.1 % (11.0-16.0); White Blood Count 9.3 X10*3/uL (4.8-10.8)
[2024-11-24 14:16] LABS: Alanine Aminotransferase 20 U/L (0-31); Albumin Level 4.2 g/dL (3.5-5.0); Alkaline Phosphatase 110 U/L (39-117); Anion Gap 13 (12-20); Aspartate Amino Transferase 26 U/L (5-31); Bilirubin Total 1.3 mg/dL (0.0-1.0); Blood Urea Nitrogen 7 mg/dL (9-16); Calcium 9.6 mg/dL (8.4-10.2); Carbon Dioxide 20 mmol/L (22-29); Chloride 112 mmol/L (96-108); Creatinine Clr Calc Pharmacy 115.7; Estimated Glomerular Filt Rate > 60; Glucose Random 99 mg/dL (60-115); Lipase 19 U/L (8-78); Magnesium 2.2 mg/dL (1.6-2.6); Potassium 3.9 mmol/L (3.3-5.1); Sodium 141 mmol/L (135-145); Total Protein 8.8 g/dL (6.5-8.0)
[2024-11-24 14:39] LABS: Influenza A PCR NEGATIVE (Negative); Influenza B PCR NEGATIVE (Negative); Resp Syncy Virus RNA Qual PCR NEGATIVE (Negative); SARS COV2 PCR INHOUSE NEGATIVE (Negative)
[2024-11-24] MEDS: Sucralfate Oral Suspension 1 GM/10 ML ORAL.SUSP PO (20:24)
[2024-11-24] MEDS: Ondansetron ODT 4 MG TAB.RAPDIS TRANSLINGU (20:24)
[2024-11-24 22:33] VITALS: BP 149/76; PULSE 84; RESP 20; TEMP 37.2; O2SAT 97
[2024-11-24 22:34] VITALS: BP 149/76; PULSE 84; RESP 20; TEMP 37.2; O2SAT 97
== END 2024-11-24 22:35 | disposition home or self-care (01) ==
PROVIDERS: Physician Assistant Medical; Emergency Provider Internal Medicine; PCP Internal Medicine
DX: R11.2 Nausea with vomiting, unspecified (principal); R10.13 Epigastric pain; R10.10 Upper abdominal pain, unspecified; Z98.84 Bariatric surgery status; Z79.899 Other long term (current) drug therapy; Z03.818 Encounter for observation for suspected exposure to other biological agents ruled out
CPT/HCPCS: 0241U; 76705; 80053; 83690; 83735; 85025; 99284

== ENCOUNTER → 2024-11-24 20:07 | Outpatient (BNV) | payer OTHER, SELFPAY | PROVIDERS: Emergency Provider Internal Medicine; PCP Internal Medicine; Visit Provider Radiology Neuroradiology | DX: R10.9 Unspecified abdominal pain (principal) | CPT/HCPCS: 76705 ==

== ENCOUNTER 2024-11-25 13:09 | Outpatient (AMB) | payer OTHER, SELFPAY ==
--- NOTE | 2024-11-25 13:13 | A.OFFVIS_ITS ---
VS Expanded 11/25/24 13:14 BP 127/73 Blood Pressure Location Lt brachial Blood Pressure Position Sitting Pulse 97 Pulse Source Pulse Oximeter Pulse Oximetry 98 Height 5 ft 1 in Weight 201 lb 6.4 oz BMI 38.1 Body Fat % 37.9 Body Fat Mass 76.2 Fat Free Mass 125.0 Visceral Fat Rating 21.0 Body Water % 44.5 Body Water Mass 89.6 Muscle Mass/Score 118.8 Basal Metabolic Rate/Score 1,710 Intake Visit Reasons: post op lsg 09/19 Allergies aspirin Allergy (Intermediate, Verified 11/25/24 13:15) Swelling latex Allergy (Intermediate, Verified 11/25/24 13:15) Rash Penicillins Allergy (Intermediate, Verified 11/25/24 13:15) Swelling dulaglutide [From Trulicity] Adverse Reaction (Intermediate, Verified 11/25/24 13:15) Itching insulin lispro [From Humalog U-100 Insulin] Adverse Reaction (Intermediate, Verified 11/25/24 13:15) Rash metformin Adverse Reaction (Intermediate, Verified 11/25/24 13:15) Gastrointestinal Upset HPI Comments Details: This?a?49?yo female who is s/p LSG without hiatal hernia repair on?09/19/2024. Presents for 2 month post op visit. Weight today is 201.4 pounds, with a BMI of 38.1. There has been a 52.6 pound weight loss,(initial weight 254 pounds) since starting the program on 03/24/2024 reflecting a 20.7 % total body weight loss and a weight loss of 30 pounds since surgery (operative weight 231.4 pounds) reflecting a 12.9 % TBWL since surgery. No complaints of nausea, emesis, abdominal pain or reflux. Reports infrequent but normal bowel movements every 2- 3 days and uses stool softeners regularly. Patient was seen in the emergency room yesterday for complaints of 2 weeks of nausea, no change in bowel habits. Bowel movement daily. She had not communicated this with anybody in the office. She states that the taste of the shake does not agree with her anymore. Her labs were fairly unremarkable including ultrasound of her right upper quadrant. States she still has nausea but tolerating fluids. Using premier protein shakes 3 per day, Reports blood sugars 100-120 Present meal plan includes: 3 Premier protein shakes: 9-10, 1-2, 7-8 1 scoop, 1 scoop, 1/2 scoop Drinking 40 oz water ? Exercise routine includes: [employer], 5 x per week, [address], walking on the treadmill and stationary bike [facility] Medical History Depression Hypertension Hyperlipidemia Neuropathy Right sciatic nerve pain FLORENCIA (obstructive sleep apnea) Asthma Type 2 diabetes mellitus Morbid obesity Surgical History S/P laparoscopic sleeve gastrectomy History of esophagogastroduodenoscopy (EGD) Hx of nasal septoplasty Hx of section Family History Father Multiple sclerosis Mother Diabetes mellitus Sister Lupus Brother No problems noted. Daughter No problems noted. Social History Household Members: Children Housing: Apartment Are you a primary managed care provider to a significant other at home: No Do you presently have visiting nurse or other home services: No Alcohol intake: never Patient Tobacco Use Status: Never used Tobacco Physical Exam Vital Signs: Last Vital Signs Pulse 97 11/25/24 13:14 BP 127/73 11/25/24 13:14 Pulse Ox 98 11/25/24 13:14 BMI result Body Mass Index 38.1 Const General: healthy appearing and no acute distress Resp Effort & Inspection: normal respiratory effort Auscultation: clear to auscultation bilaterally Cardio Rate: regular rate Rhythm: regular rhythm GI Auscultation: normal bowel sounds Extrem General: Yes normal to inspection Assessment & Plan Assessment & Plan (1) S/P laparoscopic sleeve gastrectomy: Code(s): Z98.84 - Bariatric surgery status Category: Surgical Plan: Complaints of nausea over the last couple of weeks. States intolerance to the shakes causing nausea and sometimes vomiting. She had been drinking too quickly. We will adjust her meal plan: isopure half scoop in 8 oz of water at 9-11, 1-3, 5-7 Additional 40 oz of water. Encouraged to communicate and text with results of the change. Return to clinic 2 weeks.
[2024-11-25 13:14] VITALS: BP 127/73; PULSE 97; O2SAT 98; BMI 38.1
--- OUTSIDE RECORDS SUMMARY | 2024-11-25 16:05 | XMS_ITS | Continuity of Care Document ---
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 [id number] 8Admin Note: VIS 07-06-09 9Admin Note: vis given vis date 12/04--A 10Admin Note: vis given 11Admin Note: VIS given in Estonian Medications Alcohol Wipes See Instructions, # 1 box, Refills 3, Tot. Refills 3, Maintenance, use as didrected when checkin blood sugar E11.9, 05/23/17 9:51:21 AM EDT, Compound Start Date: 05/23/17 Status: Ordered Quantity: 1.0 Unit: box Repeat number: 4 atorvastatin 20 mg oral tablet 1 tablet, By Mouth, Daily, FOR CHOLESTEROL AND TO PROTECT HEART.; 90 DAY SUPPLY; TRINIDADIAN, # 90 tablet, 3 Refills, Maintenance, 12/31/23 2:15:00 PM EDT, [facility] #[id number], 157, cm, 12/31/23 13:49:00 EDT, Height, 119, kg, 12/31/23 13:49:00 EDT, Dry Weight Start Date: 12/31/23 Status: Ordered Quantity: 90.0 Unit: tablet Repeat number: 4 Baqsimi One Pack 3 mg nasal powder = 3 mg, Nares, Both, Once, # 1 each, 0 Refills, Soft Stop, 06/03/24 2:45:00 PM EDT, [facility] #[id number], Partial fill upon patient request if the [...] 0 Refills, Maintenance, 02/20/24 11:43:00 AM EDT, [facility] #60207, 7, APPLY TOPICALLY FOUR TIMES DAILY, 157, cm, 01/28/24 15:42:00 EDT, Height, 118.18, kg, 01/28/24 15:42:00 EDT, Dry Weight Start Date: 02/20/24 Status: Ordered Quantity: 100.0 Unit: g Repeat number: 1 FeroSul 325 mg oral tablet 1 tablet, By Mouth, Daily, # 90 tablet, 1 Refills, Maintenance, 06/16/24 11:15:00 PM EDT, [facility] #31906, 157, cm, 06/03/24 14:20:00 EDT, Height, 114.09, kg, 06/03/24 14:20:00 EDT, Dry Weight Start Date: 06/16/24 Status: Ordered Quantity: 90.0 Unit: tablet Repeat number: 1 gabapentin 600 mg oral tablet 1 tablet, By Mouth, Daily at bedtime, # 90 tablet, 3 Refills, Maintenance, 12/31/23 2:15:00 PM EDT, [facility] #[id number], 157, cm, 12/31/23 13:49:00 EDT, Height, 119, kg, 12/31/23 13:49:00 EDT, Dry Weight Start Date: 12/31/23 Status: Ordered Quantity: 90.0 Unit: tablet Repeat number: 4 hydrOXYzine pamoate 50 mg oral capsule 1 capsule, By Mouth, 3 times a day, PRN NEEDED FOR ANXIETY, # 90 capsule, 0 Refills, Maintenance, 09/02/24 4:18:00 PM EST, [facility] #[id number], 157, cm, 06/23/24 13:59:00 EDT, Height, 114.81, kg, 06/23/24 13:59:00 EDT, Dry Weight Start Date: 09/02/24 Status: Ordered Quantity: 90.0 Unit: capsule Repeat number: 1 Lantus Solostar Pen 100 units/mL subcutaneous solution = 50 units, Subcutaneous Infusion, Daily, to use only if insulin pump is not working, # 15 mL, 6 Refills, Maintenance, 06/23/24 2:49:00 PM EDT, [facility] #77291, Partial fill upon patient request if the [...] Replace Required Details, Route to Pharmacy Electronically, [facility] #[id number], 157, cm, 12/31/23 13:49:00 EDT, Height, 119, kg, 12/31/23 13:49:00 EDT, Dry Weight Start Date: 12/31/23 Status: Ordered Quantity: 90.0 Unit: tablet Repeat number: 4 loratadine 10 mg oral tablet 1, tablet, By Mouth, Daily, PRN, # 90 tablet, Refills 1, Tot. Refills 1, Maintenance, NEEDED FORALLERGY SYMPTOMS, 12/31/23 2:29:00 PM EDT, Route to Pharmacy Electronically, [facility] #[id number], 157, cm, 12/31/23 13:49:00 EDT, Height, 119, kg, 12/31/23 13:49:00 EDT, Dry Weight Start Date: 12/31/23 Status: Ordered Quantity: 90.0 Unit: tablet Repeat number: 2 NovoLOG 100 units/mL injectable solution See Instructions, for use with OmniPod infusion system. TDD 80 units, # 30 mL, 0 Refills, Maintenance, 06/03/24 2:45:00 PM EDT, [facility] #[id number], Partial fill upon patient request if the prescription is for a schedule II opioid drug., 157, cm, 06/03/24 14:20:00 EDT, Height, 114.09, kg, 06/03/24 14:20:00 EDT, Dry Weight Start Date: 06/03/24 Status: Ordered Quantity: 30.0 Unit: mL Repeat number: 1 NuLYTELY Lemon [place] oral powder for reconstitution See Instructions, as directed by office, # 1 each, 0 Refills, Maintenance, 03/12/24 12:55:00 PM EDT,REC Powder, [facility] #31853, ok to sub for any gallon prep, [...] 3 Refills, Maintenance, 12/31/23 2:30:00 PM EDT, [facility] #69874, 157, cm, 12/31/23 13:49:00 EDT, Height, 119, kg, 12/31/23 13:49:00 EDT, Dry Weight Start Date: 12/31/23 Status: Ordered Quantity: 90.0 Unit: tablet Repeat number: 4 Pen [place], 31 G x 5 mm BD Ultra [...] Refills, Maintenance, 10/10/22 7:43:00 PM EST, Tablet, [facility] #76907, Partial fill upon patient request if the [...] 0 Refills, Maintenance, 01/24/24 12:36:00 PM EDT, [facility] #10923, 157, cm, 12/31/23 13:49:00 EDT, Height, 119, [...] change. ----- 7-improved with one injection at [facility], after being evaluated by ortho ([facility]) 8MRI [...] of calcific tendinopathy. 13-has followed with the [facility], and has improved with cortisone shots 14-Seen [...] - Primary Care Member Role: PCP Address: [address] [place] [address]- Telecom: Care Team Related Persons Name: IVIS BAEZA Name: TOO MCDONOUGH Insurance Providers Guarantor name: CARYN MCDONOUGH Health Plan Information #: 1 Payer: [facility] 72xuan Member Number: NA Policy Number: NA Group Number: NA Health Plan Information #: 2 Payer: [employer] Member Number: NA Policy Number: NA Group Number: NA
--- OUTSIDE RECORDS SUMMARY | 2024-11-25 16:05 | XMS_ITS | Continuity of Care Document ---
Author Organization 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 [id number] 8Admin Note: VIS 07-06-09 9Admin Note: vis given vis date 12/04--A 10Admin Note: vis given 11Admin Note: VIS given in [place] Medications Alcohol Wipes See Instructions, # 1 box, Refills 3, Tot. Refills 3, Maintenance, use as didrected when checkin blood sugar E11.9, 05/23/17 9:51:21 AM EDT, Compound Start Date: 05/23/17 Status: Ordered Quantity: 1.0 Unit: box Repeat number: 4 atorvastatin 20 mg oral tablet 1 tablet, By Mouth, Daily, FOR CHOLESTEROL AND TO PROTECT HEART.; 90 DAY SUPPLY; SERBIAN, # 90 tablet, 3 Refills, Maintenance, 12/31/23 2:15:00 PM EDT, [facility] #[id number], 157, cm, 12/31/23 13:49:00 EDT, Height, 119, kg, 12/31/23 13:49:00 EDT, Dry Weight Start Date: 12/31/23 Status: Ordered Quantity: 90.0 Unit: tablet Repeat number: 4 Baqsimi One Pack 3 mg nasal powder = 3 mg, Nares, Both, Once, # 1 each, 0 Refills, Soft Stop, 06/03/24 2:45:00 PM EDT, [facility] #[id number], Partial fill upon patient request if the [...] 0 Refills, Maintenance, 02/20/24 11:43:00 AM EDT, [facility] #[id number], 7, APPLY TOPICALLY FOUR TIMES DAILY, 157, cm, 01/28/24 15:42:00 EDT, Height, 118.18, kg, 01/28/24 15:42:00 EDT, Dry Weight Start Date: 02/20/24 Status: Ordered Quantity: 100.0 Unit: g Repeat number: 1 FeroSul 325 mg oral tablet 1 tablet, By Mouth, Daily, # 90 tablet, 1 Refills, Maintenance, 06/16/24 11:15:00 PM EDT, [facility] #00592, 157, cm, 06/03/24 14:20:00 EDT, Height, 114.09, kg, 06/03/24 14:20:00 EDT, Dry Weight Start Date: 06/16/24 Status: Ordered Quantity: 90.0 Unit: tablet Repeat number: 1 gabapentin 600 mg oral tablet 1 tablet, By Mouth, Daily at bedtime, # 90 tablet, 3 Refills, Maintenance, 12/31/23 2:15:00 PM EDT, [facility] #73727, 157, cm, 12/31/23 13:49:00 EDT, Height, 119, kg, 12/31/23 13:49:00 EDT, Dry Weight Start Date: 12/31/23 Status: Ordered Quantity: 90.0 Unit: tablet Repeat number: 4 hydrOXYzine pamoate 50 mg oral capsule 1 capsule, By Mouth, 3 times a day, PRN NEEDED FOR ANXIETY, # 90 capsule, 0 Refills, Maintenance, 09/02/24 4:18:00 PM EST, [facility] #67243, 157, cm, 06/23/24 13:59:00 EDT, Height, 114.81, kg, 06/23/24 13:59:00 EDT, Dry Weight Start Date: 09/02/24 Status: Ordered Quantity: 90.0 Unit: capsule Repeat number: 1 Lantus Solostar Pen 100 units/mL subcutaneous solution = 50 units, Subcutaneous Infusion, Daily, to use only if insulin pump is not working, # 15 mL, 6 Refills, Maintenance, 06/23/24 2:49:00 PM EDT, [facility] #09508, Partial fill upon patient request if the [...] Replace Required Details, Route to Pharmacy Electronically, [facility] #[id number], 157, cm, 12/31/23 13:49:00 EDT, Height, 119, kg, 12/31/23 13:49:00 EDT, Dry Weight Start Date: 12/31/23 Status: Ordered Quantity: 90.0 Unit: tablet Repeat number: 4 loratadine 10 mg oral tablet 1, tablet, By Mouth, Daily, PRN, # 90 tablet, Refills 1, Tot. Refills 1, Maintenance, NEEDED FORALLERGY SYMPTOMS, 12/31/23 2:29:00 PM EDT, Route to Pharmacy Electronically, [facility] #13114, 157, cm, 12/31/23 13:49:00 EDT, Height, 119, kg, 12/31/23 13:49:00 EDT, Dry Weight Start Date: 12/31/23 Status: Ordered Quantity: 90.0 Unit: tablet Repeat number: 2 NovoLOG 100 units/mL injectable solution See Instructions, for use with OmniPod infusion system. TDD 80 units, # 30 mL, 0 Refills, Maintenance, 06/03/24 2:45:00 PM EDT, [facility] #78698, Partial fill upon patient request if the prescription is for a schedule II opioid drug., 157, cm, 06/03/24 14:20:00 EDT, Height, 114.09, kg, 06/03/24 14:20:00 EDT, Dry Weight Start Date: 06/03/24 Status: Ordered Quantity: 30.0 Unit: mL Repeat number: 1 NuLYTELY Lemon [place] oral powder for reconstitution See Instructions, as directed by office, # 1 each, 0 Refills, Maintenance, 03/12/24 12:55:00 PM EDT,REC Powder, [facility] #[id number], ok to sub for any gallon prep, [...] 3 Refills, Maintenance, 12/31/23 2:30:00 PM EDT, [facility] #99407, 157, cm, 12/31/23 13:49:00 EDT, Height, 119, kg, 12/31/23 13:49:00 EDT, Dry Weight Start Date: 12/31/23 Status: Ordered Quantity: 90.0 Unit: tablet Repeat number: 4 Pen [place], 31 G x 5 mm BD Ultra [...] Refills, Maintenance, 10/10/22 7:43:00 PM EST, Tablet, [facility] #32148, Partial fill upon patient request if the [...] 0 Refills, Maintenance, 01/24/24 12:36:00 PM EDT, [facility] #[id number], 157, cm, 12/31/23 13:49:00 EDT, Height, 119, kg, 12/31/23 13:49:00 EDT, Dry Weight Start Date: 01/24/24 Status: Ordered Quantity: 18.0 Unit: g Repeat number: 1 Vitamin D3 1000 intl units oral tablet 1 tablet, By Mouth, Daily, START AFTER COMPLETING 50,000 UNITS FOR 8 WEEKS, # 90 tablet, 0 Refills,Maintenance, 11/18/24 8:44:00 AM EST, [facility] #22711, 157, cm, 06/23/24 13:59:00 EDT, Height, 114.81, kg, 06/23/24 13:59:00 EDT, Dry Weight Start Date: 11/18/24 Status: Ordered Quantity: 90.0 Unit: tablet Repeat number: 1 Problem List Condition Confirmation [...] change. ----- 7-improved with one injection at [facility], after being evaluated by ortho ([facility]) 8MRI [...] of calcific tendinopathy. 13-has followed with the [facility], and has improved with cortisone shots 14-Seen again in [place] 20[place] 15CT scan: Hepatosplenomegaly and hepatic steatosis (09-27-2011). 16Abd US (02/16/2011) - Fatty infiltration of the liver is seen. The examination is otherwise unremarkable. Procedures Procedure Date Related Diagnosis Body Site Status Laparoscopic sleeve gastrectomy 09/19/24 Completed Social History Social History Type Response Smoking Status Never (less than 100 in lifetime) entered on: 02/14/23 Sex Sex Representation Female (finding) Laboratory * Event Display: Non Lab Results Authored Date: * Event Display: Non BH Lab Results Authored Date: * Event Display: Non Lab Results Authored Date: Radiology * Event Display: IR Special Procedures, Non- Authored Date: * Event Display: IR Special Procedures, Non- Authored Date: * Event Display: Ultrasound Liver, Non-BH Authored Date: * Event Display: X-Ray Chest, Non- Authored Date: * Nasreen SHANE, Adrienne: REVIEW Event Display: X-Ray Shoulder, Non- Authored Date: [id number] Patient Care team information Care Team Personnel Name: Adrienne Downey MD Position: [facility] Physician - Primary Care Member Role: PCP Address: [address] [place] [address] Telecom: Care Team Related Persons Name: IVIS BAEZA Name: TOO MCDONOUGH Insurance Providers Guarantor name: CARYN MCDONOUGH Health Plan Information #: 1 Payer: [facility] Member Number: NA Policy Number: NA Group Number: NA Health Plan Information #: 2 Payer: [facility] Member Number: NA Policy Number: NA Group Number: NA
--- OUTSIDE RECORDS SUMMARY | 2024-11-25 16:05 | XMS_ITS | Continuity of Care Document ---
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 [id number] 8Admin Note: VIS 07-06-09 9Admin Note: vis given vis date 12/04--A 10Admin Note: vis given 11Admin Note: VIS given in [place] Medications Alcohol Wipes See Instructions, # 1 box, Refills 3, Tot. Refills 3, Maintenance, use as didrected when checkin blood sugar E11.9, 05/23/17 9:51:21 AM EDT, Compound Start Date: 05/23/17 Status: Ordered Quantity: 1.0 Unit: box Repeat number: 4 atorvastatin 20 mg oral tablet 1 tablet, By Mouth, Daily, FOR CHOLESTEROL AND TO PROTECT HEART.; 90 DAY SUPPLY; BRIT[place], # 90 tablet, 3 Refills, Maintenance, 12/31/23 2:15:00 PM EDT, [facility] #[id number], 157, cm, 12/31/23 13:49:00 EDT, Height, 119, kg, 12/31/23 13:49:00 EDT, Dry Weight Start Date: 12/31/23 Status: Ordered Quantity: 90.0 Unit: tablet Repeat number: 4 Baqsimi One Pack 3 mg nasal powder = 3 mg, Nares, Both, Once, # 1 each, 0 Refills, Soft Stop, 06/03/24 2:45:00 PM EDT, [facility] #[id number], Partial fill upon patient request if the [...] 0 Refills, Maintenance, 02/20/24 11:43:00 AM EDT, [facility] #[id number], 7, APPLY TOPICALLY FOUR TIMES DAILY, 157, cm, 01/28/24 15:42:00 EDT, Height, 118.18, kg, 01/28/24 15:42:00 EDT, Dry Weight Start Date: 02/20/24 Status: Ordered Quantity: 100.0 Unit: g Repeat number: 1 FeroSul 325 mg oral tablet 1 tablet, By Mouth, Daily, # 90 tablet, 1 Refills, Maintenance, 06/16/24 11:15:00 PM EDT, [facility] #73145, 157, cm, 06/03/24 14:20:00 EDT, Height, 114.09, kg, 06/03/24 14:20:00 EDT, Dry Weight Start Date: 06/16/24 Status: Ordered Quantity: 90.0 Unit: tablet Repeat number: 1 gabapentin 600 mg oral tablet 1 tablet, By Mouth, Daily at bedtime, # 90 tablet, 3 Refills, Maintenance, 12/31/23 2:15:00 PM EDT, [facility] #09008, 157, cm, 12/31/23 13:49:00 EDT, Height, 119, kg, 12/31/23 13:49:00 EDT, Dry Weight Start Date: 12/31/23 Status: Ordered Quantity: 90.0 Unit: tablet Repeat number: 4 hydrOXYzine pamoate 50 mg oral capsule 1 capsule, By Mouth, 3 times a day, PRN NEEDED FOR ANXIETY, # 90 capsule, 0 Refills, Maintenance, 09/02/24 4:18:00 PM EST, [facility] #[id number], 157, cm, 06/23/24 13:59:00 EDT, Height, 114.81, kg, 06/23/24 13:59:00 EDT, Dry Weight Start Date: 09/02/24 Status: Ordered Quantity: 90.0 Unit: capsule Repeat number: 1 Lantus Solostar Pen 100 units/mL subcutaneous solution = 50 units, Subcutaneous Infusion, Daily, to use only if insulin pump is not working, # 15 mL, 6 Refills, Maintenance, 06/23/24 2:49:00 PM EDT, [facility] #60763, Partial fill upon patient request if the [...] Replace Required Details, Route to Pharmacy Electronically, [facility] #86215, 157, cm, 12/31/23 13:49:00 EDT, Height, 119, kg, 12/31/23 13:49:00 EDT, Dry Weight Start Date: 12/31/23 Status: Ordered Quantity: 90.0 Unit: tablet Repeat number: 4 loratadine 10 mg oral tablet 1, tablet, By Mouth, Daily, PRN, # 90 tablet, Refills 1, Tot. Refills 1, Maintenance, NEEDED FORALLERGY SYMPTOMS, 12/31/23 2:29:00 PM EDT, Route to Pharmacy Electronically, [facility] #77136, 157, cm, 12/31/23 13:49:00 EDT, Height, 119, kg, 12/31/23 13:49:00 EDT, Dry Weight Start Date: 12/31/23 Status: Ordered Quantity: 90.0 Unit: tablet Repeat number: 2 NovoLOG 100 units/mL injectable solution See Instructions, for use with OmniPod infusion system. TDD 80 units, # 30 mL, 0 Refills, Maintenance, 06/03/24 2:45:00 PM EDT, [facility] #81209, Partial fill upon patient request if the prescription is for a schedule II opioid drug., 157, cm, 06/03/24 14:20:00 EDT, Height, 114.09, kg, 06/03/24 14:20:00 EDT, Dry Weight Start Date: 06/03/24 Status: Ordered Quantity: 30.0 Unit: mL Repeat number: 1 NuLYTELY Lemon [place] oral powder for reconstitution See Instructions, as directed by office, # 1 each, 0 Refills, Maintenance, 03/12/24 12:55:00 PM EDT,REC Powder, [facility] #70681, ok to sub for any gallon prep, [...] 3 Refills, Maintenance, 12/31/23 2:30:00 PM EDT, [facility] #70024, 157, cm, 12/31/23 13:49:00 EDT, Height, 119, kg, 12/31/23 13:49:00 EDT, Dry Weight Start Date: 12/31/23 Status: Ordered Quantity: 90.0 Unit: tablet Repeat number: 4 Pen [place], 31 G x 5 mm BD Ultra [...] Refills, Maintenance, 10/10/22 7:43:00 PM EST, Tablet, [facility] #14311, Partial fill upon patient request if the [...] 0 Refills, Maintenance, 01/24/24 12:36:00 PM EDT, [facility] #33967, 157, cm, 12/31/23 13:49:00 EDT, Height, 119, kg, 12/31/23 13:49:00 EDT, Dry Weight Start Date: 01/24/24 Status: Ordered Quantity: 18.0 Unit: g Repeat number: 1 Vitamin D3 1000 intl units oral tablet 1 tablet, By Mouth, Daily, START AFTER COMPLETING 50,000 UNITS FOR 8 WEEKS, # 90 tablet, 0 Refills,Maintenance, 11/18/24 8:44:00 AM EST, [facility] #74272, 157, cm, 06/23/24 13:59:00 EDT, Height, 114.81, [...] change. ----- 7-improved with one injection at [facility], after being evaluated by ortho ([facility]) 8MRI [...] of calcific tendinopathy. 13-has followed with the [facility], and has improved with cortisone shots [...] - Primary Care Member Role: PCP Address: [address] [place] [address]- Telecom: Care Team Related Persons Name: IVIS BAEZA Name: TOO MCDONOUGH Insurance Providers Guarantor name: CARYN SHARONDA Health Plan Information #: 2 Payer: [employer] Member Number: [id number] Policy Number: NA Group Number: NA Health Plan Information #: 1 Payer: [place] [facility] [facility] Member Number: [id number] Policy Number: NA Group Number: [id number]
--- OUTSIDE RECORDS SUMMARY | 2024-11-25 16:06 | XMS_ITS | Continuity of Care Document ---
Author Organization [facility] ter Address [address] [place] [id number]- Care Team Providers Care Digital Coordinator Name Role Phone Nasreen SHANE, Adrienne Primary Care Physician ( [phone] Encounter [facility] Date(s): 03/19/24 - 11/02/[address] [address]- Attending Physician: Heri Soto MD Admitting Physician: Heri Soto MD Encounter Type: Preadmit Daystay Allergies, Adverse Reactions, Alerts Substance Criticality Severity Reaction Reaction Severity Status penicillin rash and itching Active aspirin eye swelling Active HumaLOG Rash Active Latex Unable to assess criticality Persistent Mild ITCH Active metFORMIN abdominal pain Activ e Ozempic (0.25 mg or 0.5 mg dose) pain Active Trulicity Pen rash Active Immunizations Given [...] 04/25/2011 6Admin Note: VIS GIVEN 7Result Comment: [facility] [id number] 8Admin Note: VIS 07-06-09 9Admin Note: vis given vis date 12/04--A 10Admin Note: vis given 11Admin Note: VIS given in [place] Medications Alcohol Wipes See Instructions, # 1 box, Refills 3, Tot. Refills 3, Maintenance, use as didrected when checkin blood sugar E11.9, 05/23/17 9:51:21 AM EDT, Compound Start Date: 05/23/17 Status: Ordered Quantity: 1.0 Unit: box Repeat number: 4 atorvastatin 20 mg oral tablet 1 tablet, By Mouth, Daily, FOR CHOLESTEROL AND TO PROTECT HEART.; 90 DAY SUPPLY; INDONESIAN, # 90 tablet, 3 Refills, Maintenance, 12/31/23 2:15:00 PM EDT, [facility] #[id number], 157, cm, 12/31/23 13:49:00 EDT, Height, 119, kg, 12/31/23 13:49:00 EDT, Dry Weight Start Date: 12/31/23 Status: Ordered Quantity: 90.0 Unit: tablet Repeat number: 4 Baqsimi One Pack 3 mg nasal powder = 3 mg, Nares, Both, Once, # 1 each, 0 Refills, Soft Stop, 06/03/24 2:45:00 PM EDT, [facility] #[id number], Partial fill upon patient request if the [...] 0 Refills, Maintenance, 02/20/24 11:43:00 AM EDT, [facility] #[id number], 7, APPLY TOPICALLY FOUR TIMES DAILY, 157, cm, 01/28/24 15:42:00 EDT, Height, 118.18, kg, 01/28/24 15:42:00 EDT, Dry Weight Start Date: 02/20/24 Status: Ordered Quantity: 100.0 Unit: g Repeat number: 1 FeroSul 325 mg oral tablet 1 tablet, By Mouth, Daily, # 90 tablet, 1 Refills, Maintenance, 06/16/24 11:15:00 PM EDT, [facility] #[id number], 157, cm, 06/03/24 14:20:00 EDT, Height, 114.09, kg, 06/03/24 14:20:00 EDT, Dry Weight Start Date: 06/16/24 Status: Ordered Quantity: 90.0 Unit: tablet Repeat number: 1 gabapentin 600 mg oral tablet 1 tablet, By Mouth, Daily at bedtime, # 90 tablet, 3 Refills, Maintenance, 12/31/23 2:15:00 PM EDT, [facility] #[id number], 157, cm, 12/31/23 13:49:00 EDT, Height, 119, kg, 12/31/23 13:49:00 EDT, Dry Weight Start Date: 12/31/23 Status: Ordered Quantity: 90.0 Unit: tablet Repeat number: 4 hydrOXYzine pamoate 50 mg oral capsule 1 capsule, By Mouth, 3 times a day, PRN NEEDED FOR ANXIETY, # 90 capsule, 0 Refills, Maintenance, 09/02/24 4:18:00 PM EST, [facility] #[id number], 157, cm, 06/23/24 13:59:00 EDT, Height, 114.81, kg, 06/23/24 13:59:00 EDT, Dry Weight Start Date: 09/02/24 Status: Ordered Quantity: 90.0 Unit: capsule Repeat number: 1 Lantus Solostar Pen 100 units/mL subcutaneous solution = 50 units, Subcutaneous Infusion, Daily, to use only if insulin pump is not working, # 15 mL, 6 Refills, Maintenance, 06/23/24 2:49:00 PM EDT, [facility] #[id number], Partial fill upon patient request if the [...] Replace Required Details, Route to Pharmacy Electronically, [facility] #[id number], 157, cm, 12/31/23 13:49:00 EDT, Height, 119, kg, 12/31/23 13:49:00 EDT, Dry Weight Start Date: 12/31/23 Status: Ordered Quantity: 90.0 Unit: tablet Repeat number: 4 loratadine 10 mg oral tablet 1, tablet, By Mouth, Daily, PRN, # 90 tablet, Refills 1, Tot. Refills 1, Maintenance, NEEDED FORALLERGY SYMPTOMS, 12/31/23 2:29:00 PM EDT, Route to Pharmacy Electronically, [facility] #[id number], 157, cm, 12/31/23 13:49:00 EDT, Height, 119, kg, 12/31/23 13:49:00 EDT, Dry Weight Start Date: 12/31/23 Status: Ordered Quantity: 90.0 Unit: tablet Repeat number: 2 NovoLOG 100 units/mL injectable solution See Instructions, for use with OmniPod infusion system. TDD 80 units, # 30 mL, 0 Refills, Maintenance, 06/03/24 2:45:00 PM EDT, [facility] #[id number], Partial fill upon patient request if the prescription is for a schedule II opioid drug., 157, cm, 06/03/24 14:20:00 EDT, Height, 114.09, kg, 06/03/24 14:20:00 EDT, Dry Weight Start Date: 06/03/24 Status: Ordered Quantity: 30.0 Unit: mL Repeat number: 1 NuLYTELY Lemon [place] oral powder for reconstitution See Instructions, as directed by office, # 1 each, 0 Refills, Maintenance, 03/12/24 12:55:00 PM EDT,REC Powder, [facility] #[id number], ok to sub for any gallon prep, [...] 3 Refills, Maintenance, 12/31/23 2:30:00 PM EDT, [facility] #[id number], 157, cm, 12/31/23 13:49:00 EDT, Height, 119, kg, 12/31/23 13:49:00 EDT, Dry Weight Start Date: 12/31/23 Status: Ordered Quantity: 90.0 Unit: tablet Repeat number: 4 Pen [place], 31 G x 5 mm BD Ultra [...] Refills, Maintenance, 10/10/22 7:43:00 PM EST, Tablet, [facility] #[id number], Partial fill upon patient request if the [...] 0 Refills, Maintenance, 01/24/24 12:36:00 PM EDT, [facility] #[id number], 157, cm, 12/31/23 13:49:00 EDT, Height, 119, [...] Diffusing capacity is mildly reduced. 3-negative January 2023-Nov 17-2016. Due in 5 years=Nov 2021 5Dec 2023 6MRI: : 1. Diminutive and slightly lax contour of the ACL, suggestive of a chronic partial tear. 2. Focal free margin truncation in the posterior third of the medial meniscus near its posterior tibial attachment, likely free margin radial tear. 3. Mild medial compartment degenerative change. ----- 7-improved with one injection at [facility], after being evaluated by ortho ([facility]) 8MRI [...] of calcific tendinopathy. 13-has followed with the [facility], and has improved with cortisone shots [...] - Primary Care Member Role: PCP Address: [address] [place] [address]- Telecom: Care Team Related Persons Name: IVIS BAEZA Name: TOO MCDONOUGH Insurance Providers Guarantor name: CARYN MCDONOUGH Health Plan Information #: 1 Payer: [employer] Member Number: [id number] Policy Number: NA Group Number: [id number] Health Plan Information #: 2 Payer: [employer] Member Number: [id number] Policy Number: NA Group Number: NA Health Plan Information #: 3 Payer: [facility] Member Number: NA Policy Number: NA Group Number: NA
== END 2024-11-25 14:17 | disposition home or self-care (01) ==
PROVIDERS: PCP Internal Medicine; Visit Provider Physician Assistant Surgical
DX: Z98.84 Bariatric surgery status (principal)
CPT/HCPCS: 99024

== ENCOUNTER → 2024-11-25 13:09 | Outpatient (BNVA) | payer OTHER, SELFPAY | PROVIDERS: PCP Internal Medicine; Visit Provider Physician Assistant Surgical | DX: E66.01 Morbid (severe) obesity due to excess calories (principal); Z98.84 Bariatric surgery status; Z68.38 Body mass index [BMI] 38.0-38.9, adult | CPT/HCPCS: 99212 ==

== ENCOUNTER 2024-12-08 13:59 | Outpatient (AMB) | payer OTHER, SELFPAY ==
--- NOTE | 2024-12-08 14:00 | MHC.OFFVISWM ---
VS Expanded 12/08/24 14:07 BP 121/70 Blood Pressure Location Rt brachial Blood Pressure Position Sitting Pulse 88 Pulse Source Pulse Oximeter Temp 97.5 F Temperature Source Temporal Artery Scan Pulse Oximetry 97 Oxygen Delivery Method Room Air Height 5 ft 1.5 in Weight 204 lb 9.6 oz BMI 38.0 Body Fat % 40.7 Body Fat Mass 83.4 Fat Free Mass 121.2 Visceral Fat Rating 11.0 Body Water % 42.2 Body Water Mass 86.4 Muscle Mass/Score 115.0 Basal Metabolic Rate/Score 1,675 Intake Visit Reasons: post op lsg 09/19 Allergies aspirin Allergy (Intermediate, Verified 12/08/24 14:08) Swelling latex Allergy (Intermediate, Verified 12/08/24 14:08) Rash Penicillins Allergy (Intermediate, Verified 12/08/24 14:08) Swelling dulaglutide [From Trulicity] Adverse Reaction (Intermediate, Verified 12/08/24 14:08) Itching insulin lispro [From Humalog U-100 Insulin] Adverse Reaction (Intermediate, Verified 12/08/24 14:08) Rash metformin Adverse Reaction (Intermediate, Verified 12/08/24 14:08) Gastrointestinal Upset HPI Comments Details: This?a?49?yo female who is s/p LSG without hiatal hernia repair on?09/19/2024. Presents for 2.5 month post op visit. Weight today is 204.6 pounds, with a BMI of 38.7. There has been a 49.4 pound weight loss,(initial weight 254 pounds) since starting the program on 03/24/2024 reflecting a 19.4 % total body weight loss and a weight loss of 26.8 pounds since surgery (operative weight 231.4 pounds) reflecting a 11.5 % TBWL since surgery. No complaints of nausea, emesis, abdominal pain or reflux. Reports infrequent but normal bowel movements every 2-3 days and uses stool softeners regularly. Patient was last seen approximately 2 weeks ago. We had changed her meal plan as she was not following the recommended meal plan. Complained of frequent nausea. With a change in her meal plan, she was encouraged to text me how she did with that. Unfortunately she did not communicate since her last appointment. She states she has developed a rash over the last 2 weeks with redness at her eyes and some excoriations at her back and abdomen. Continues to complain of nausea and intermittent epigastric pain. She was told to have eggs, [place] yogurt and cottage cheese, but she states she doesn't like yogurt or cottage cheese. She feels as though food isn't going down She is drinking pineapple juice without problem. Eating mashed potatoe 2-4 spoons, or pureed root veg Present meal plan includes: isopure half scoop in 8 oz of water at 9-11, 1-3, 5-7 Drinking 40 oz water ? Exercise routine includes: [employer] gym, 5 x per week, [address], walking on the treadmill and stationary bike [facility] Medical History Depression Hypertension Hyperlipidemia Neuropathy Right sciatic nerve pain FLORENCIA (obstructive sleep apnea) Asthma Type 2 diabetes mellitus Morbid obesity Surgical History S/P laparoscopic sleeve gastrectomy History of esophagogastroduodenoscopy (EGD) Hx of nasal septoplasty Hx of section Family History Father Multiple sclerosis Mother Diabetes mellitus Sister Lupus Brother No problems noted. Daughter No problems noted. Social History Household Members: Children Housing: Apartment Are you a primary palliative care specialist to a significant other at home: No Do you presently have visiting nurse or other home services: No Alcohol intake: never Patient Tobacco Use Status: Never used Tobacco Physical Exam Vital Signs: Last Vital Signs Temp 97.5 F 12/08/24 14:07 Const General: healthy appearing and no acute distress Resp Effort & Inspection: normal respiratory effort Auscultation: clear to auscultation bilaterally Cardio Rate: regular rate Rhythm: regular rhythm GI Auscultation: normal bowel sounds Extrem General: Yes normal to inspection Assessment & Plan Assessment & Plan (1) S/P laparoscopic sleeve gastrectomy: Code(s): Z98.84 - Bariatric surgery status Category: Surgical Plan: Again, patient was told to start the meal plan that I had recommended to her. Again, I discussed the importance of communication. She has my cell phone number and will let me know how it goes. Her rash may be attributable to the excess pineapple juice that she has been drinking. The fact that she can tolerate pineapple juice and mesh potatoes makes me suspect there is no functional abnormality. She is drinking too quickly and likely too much. Discussed the fact that she did not have any of these problems when she was drinking at the appropriate rate postoperatively at 1 oz every 15 minutes or 2 mL/minute. I encouraged her to stop her pineapple juice and mesh potatoes, start the meal plan that I suggested to her and text me how it goes so I can make further recommendations. We will have her follow-up in the office in 2 weeks
[2024-12-08 14:07] VITALS: BP 121/70; PULSE 88; TEMP 36.4; O2SAT 97; BMI 38.0
== END 2024-12-08 14:39 | disposition home or self-care (01) ==
PROVIDERS: PCP Internal Medicine; Visit Provider Physician Assistant Surgical
DX: Z98.84 Bariatric surgery status (principal)
CPT/HCPCS: 99024

== ENCOUNTER → 2024-12-08 13:59 | Outpatient (BNVA) | payer OTHER, SELFPAY | PROVIDERS: PCP Internal Medicine; Visit Provider Physician Assistant Surgical | DX: Z98.84 Bariatric surgery status (principal) | CPT/HCPCS: 99212 ==

== ENCOUNTER 2024-12-18 09:02 | Outpatient (AMB) | payer OTHER, SELFPAY ==
--- NOTE | 2024-12-18 09:23 | A.OFFVIS_ITS ---
VS Expanded 12/18/24 09:31 BP 128/70 Blood Pressure Location Rt brachial Blood Pressure Position Sitting Pulse 77 Pulse Source Pulse Oximeter Temp 97.5 F Temperature Source Temporal Artery Scan Pulse Oximetry 99 Oxygen Delivery Method Room Air Height 5 ft 1.5 in Weight 200 lb 12.8 oz BMI 37.3 Body Fat % 41.4 Body Fat Mass 83.2 Fat Free Mass 117.6 Visceral Fat Rating 11.0 Body Water % 41.8 Body Water Mass 83.8 Muscle Mass/Score 111.6 Basal Metabolic Rate/Score 1,628 Intake Visit Reasons: (OV) PO LSG 09/19/24 Clinical Nurse Occupational Medicine Required: Yes Clinical Nurse Occupational Medicine Services: Clinical Nurse Occupational Medicine Present Clinical Nurse Occupational Medicine Name: hospital cmi Allergies aspirin Allergy (Intermediate, Verified 12/18/24 09:30) Swelling latex Allergy (Intermediate, Verified 12/18/24 09:30) Rash Penicillins Allergy (Intermediate, Verified 12/18/24 09:30) Swelling dulaglutide [From Trulicity] Adverse Reaction (Intermediate, Verified 12/18/24 09:30) Itching insulin lispro [From Humalog U-100 Insulin] Adverse Reaction (Intermediate, Verified 12/18/24 09:30) Rash metformin Adverse Reaction (Intermediate, Verified 12/18/24 09:30) Gastrointestinal Upset Medication List - Last Reconciled 12/18/24 by ERNESTINE Osman atorvastatin 20 mg PO DAILY docusate sodium (Colace) 100 mg PO BID 90 days fluoxetine 10 mg PO DAILY gabapentin 600 mg PO BEDTIME insulin pump cart,cont inf,BT (Omnipod Dash Pods (Gen 4) subcutaneous cartridge) As directed lisinopril 2.5 mg PO DAILY loratadine (Allergy Relief (loratadine)) 10 mg PO DAILY lorazepam 0.5 mg PO DAILY PRN HPI Comments Details: This?a?49?yo female who is s/p LSG without hiatal hernia repair on?09/19/2024. Presents for 2.5 month post op visit. Weight today is 200.8 pounds, with a BMI of 37.3. There has been a 49.4 pound weight loss,(initial weight 254 pounds) since starting the program on 03/24/2024 reflecting a 19.4 % total body weight loss and a weight loss of 26.8 pounds since surgery (operative weight 231.4 tawana nds) reflecting a 11.5 % TBWL since surgery. No complaints of nausea, emesis, abdominal pain or reflux. Reports infrequent but normal bowel movements every 2- 3 days and uses stool softeners regularly. Patient was last seen approximately 10 days ago. We had changed her meal plan as she was not following the recommended meal plan. Complained of frequent nausea. She states that she continues to complain of nausea. Reports that this occurs throughout the day. No improvement or worsening of the nausea with food or fluids. She reports no nausea until approximately 1 month ago. She reports moving her bowels daily without any difficulty. She stopped her pantoprazole and sucralfate a day and a half ago and has not noticed any changes in the nausea. She additionally states that approximately a month ago when this started, she was transitioned from paroxetine flipped to fluoxetine. She does report taking multivitamin around noon. She states very specifically, that is she is following the meal plan as directed. This does not change the nausea in any way Present meal plan includes: isopure half scoop in 8 oz of water at 9-11, 1-3, 5-7 Drinking 40 oz water ? Exercise routine includes: [employer] gym, 5 x per week, [address], walking on the treadmill and stationary bike [facility] Medical History Depression Hypertension Hyperlipidemia Neuropathy Right sciatic nerve pain FLORENCIA (obstructive sleep apnea) Asthma Type 2 diabetes mellitus Morbid obesity Surgical History S/P laparoscopic sleeve gastrectomy History of esophagogastroduodenoscopy (EGD) Hx of nasal septoplasty Hx of section Family History Father Multiple sclerosis Mother Diabetes mellitus Sister Lupus Brother No problems noted. Daughter No problems noted. Social History Household Members: Children Housing: Apartment Are you a primary manager home healthcare to a significant other at home: No Do you presently have visiting nurse or other home services: No Alcohol intake: never Patient Tobacco Use Status: Never used Tobacco Physical Exam Vital Signs: Last Vital Signs Temp 97.5 F 12/18/24 09:31 Const General: healthy appearing and no acute distress Resp Effort & Inspection: normal respiratory effort Auscultation: clear to auscultation bilaterally Cardio Rate: regular rate Rhythm: regular rhythm GI Auscultation: normal bowel sounds Extrem General: Yes normal to inspection Assessment & Plan Assessment & Plan (1) S/P laparoscopic sleeve gastrectomy: Code(s): Z98.84 - Bariatric surgery status Category: Surgical Plan: Change meal plan to increase to 1 scoop per shake, x3 shakes per day. Return to clinic 3 weeks. Encouraged to text weekly with any changes, questions, concerns. Encouraged to text weight weekly (2) Nausea: Code(s): R11.0 - Nausea Category: Medical Plan: As patient states that she is following the meal plan exactly, this is likely in the setting of recent SSRI change. She was not experiencing nausea with the paroxetine, but began experiencing nausea with fluoxetine. She states that she had some nausea before but this may have been because she was not following the meal plan exactly. I encouraged her to call her psychiatrist and asked to be changed to a different medication, possibly back to paroxetine. She states that she will do so.
[2024-12-18 09:31] VITALS: BP 128/70; PULSE 77; TEMP 36.4; O2SAT 99; BMI 37.3
--- OUTSIDE RECORDS SUMMARY | 2024-12-18 09:34 | XMS_ITS | Continuity of Care Document ---
Author Organization [facility] Address [address] [place] [address]- Care Team Providers Care Dental Surgeon Name Role Phone Adrienne Downey MD [id number] Date[facility]s): 12/09/24 - 12/16/24 [facility] [address] [place] [address]- Attending Physician: Fabio Powers Referring Physician: Adrienne Downey MD Encounter Type: Office Visit Allergies, Adverse Reactions, Alerts Substance Criticality Severity [...] 04/25/2011 6Admin Note: VIS GIVEN 7Result Comment: [facility] [id number] 8Admin Note: VIS 07-06-09 9Admin Note: vis given vis date 12/04--A B 10Admin Note: vis given 11Admin Note: VIS given in Belarusian Medications Alcohol Wipes See Instructions, # 1 box, Refills 3, Tot. Refills 3, Maintenance, use as didrected when checkin blood sugar E11.9, 05/23/17 9:51:21 AM EDT, Compound Start Date: 05/23/17 Status: Ordered Quantity: 1.0 Unit: box Repeat number: 4 atorvastatin 20 mg oral tablet 1 tablet, By Mouth, Daily, FOR CHOLESTEROL AND TO PROTECT HEART.; 90 DAY SUPPLY; FRENCH, # 90 tablet, 3 Refills, Maintenance, 12/31/23 2:15:00 PM EDT, [facility] #[id number], 157, cm, 12/31/23 13:49:00 EDT, Height, 119, kg, 12/31/23 13:49:00 EDT, Dry Weight Start Date: 12/31/23 Status: Ordered Quantity: 90.0 Unit: tablet Repeat number: 4 Baqsimi One Pack 3 mg nasal powder = 3 mg, Nares, Both, Once, # 1 each, 0 Refills, Soft Stop, 06/03/24 2:45:00 PM EDT, [facility] #[id number], Partial fill upon patient request if the [...] Quantity: 3.0 Unit: each Repeat number: 6 gabapentin 600 mg oral tablet 1 tablet, By Mouth, Daily at bedtime, # 90 tablet, 3 Refills, Maintenance, 12/31/23 2:15:00 PM EDT, [facility] #[id number], 157, cm, 12/31/23 13:49:00 EDT, Height, 119, kg, 12/31/23 13:49:00 EDT, Dry Weight Start Date: 12/31/23 Status: Ordered Quantity: 90.0 Unit: tablet Repeat number: 4 Lantus Solostar Pen 100 units/mL subcutaneous solution = 10 units, Subcutaneous Injection, Daily at bedtime, # 10 mL, 0 Refills, Maintenance, 12/01/24 4:03:00 PM EST, Solution, [facility] #[id number], Partial fill upon patient request if the prescription is for a schedule II opioid drug., 157, cm, 12/01/24 15:02:00 EST, Height, 96.454, kg, 12/01/24 1 5:02:00 EST, Dry Weight Start Date: 12/01/24 Status: Ordered Quantity: 10.0 Unit: mL Repeat number: 1 lisinopril 2.5 mg oral tablet See Instructions, TAKE 1 TABLET BY MOUTH DAILY, # 90 tablet, Refills 1, Tot. Refills 1, Maintenance, 12/09/24 9:12:00 AM EDT, Instructions Replace Required Details, Route to Pharmacy Electronically, [facility] #[id number], 157, cm, 12/01/24 15:02:00 EST, Height, 96.454, kg, 12/01/24 15:02:00 EST, Dry Weight Start Date: 12/09/24 Status: Ordered Quantity: 90.0 Unit: tablet Repeat number: 2 loratadine 10 mg oral tablet 1, tablet, By Mouth, Daily, PRN, # 90 tablet, Refills 3, Tot. Refills 3, Maintenance, NEEDED FORALLERGY SYMPTOMS, 12/01/24 4:09:00 PM EST, Route to Pharmacy Electronically, [facility] #[id number], 157, cm, 12/01/24 15:02:00 EST, Height, 96.454, kg, 12/01/24 15:02:00 EST, Dry Weight Start Date: 12/01/24 Status: Ordered Quantity: 90.0 Unit: tablet Repeat number: 4 NuLYTELY Lemon [place] oral powder for reconstitution See Instructions, as directed by office, # 1 each, 0 Refills, Maintenance, 03/12/24 12:55:00 PM EDT,REC Powder, [facility] #[id number], ok to sub for any gallon prep, 157, cm, 03/12/24 12:33:00 EDT, Height, 118.18, kg, 01/28/24 15:42:00 EDT, Dry Weight Start Date: 03/12/24 Status: Ordered Quantity: 1.0 Unit: each Repeat number: 1 Pen [place], 31 G x 5 mm BD Ultra Fine III See Instructions, # 30 each, Refills 6, Tot. Refills 6, Maintenance, use as directed for Type 2 Diabetes Mellitus to use once daily with lantus, 3/3/25 4:04:00 PM EST, Supply, 157, cm, 12/01/24 15:02:00 EST, Height, 96.454, kg, 12/01/24 15:02:00 EST, Dry Weight Start Date: 12/01/24 Stop Date: 06/29/25 Status: Ordered Quantity: 30.0 Unit: each Repeat number: 7 predniSONE 20 mg oral tablet See Instructions, 3 tablets for 3 days, then 2 tablets for 3 days thyen 1 tablet for 3 days, # 18 tablet, 0 Refills, Acute 12/18/24 12:07:00 PM EDT, 12/09/24 12:03:00 PM EDT, Tablet, [facility] #[id number], Partial fill upon patient request if the prescription is for a schedule II opioid drug., 157, cm, 12/09/24 11:33:00 EDT, Height, 96.454, kg, 12/01/24 15:02:00 EST, Dry Weight Start Date: 12/09/24 Stop Date: 12/18/24 Status: Ordered Quantity: 18.0 Unit: tablet Repeat number: 1 Tylenol Extra Strength 500 mg oral tablet 2 tablet = 1,000 mg, By Mouth, 3 times a day, PRN as needed for headaches/body aches, # 50 tablet, 0 Refills, Maintenance, 10/10/22 7:43:00 PM EST, Tablet, [facility] #[id number], Partial fill upon patient request if the [...] 0 Refills, Maintenance, 01/24/24 12:36:00 PM EDT, [facility] #[id number], 157, cm, 12/31/23 13:49:00 EDT, Height, 119, kg, 12/31/23 13:49:00 EDT, Dry Weight Start Date: 01/24/24 Status: Ordered Quantity: 18.0 Unit: g Repeat number: 1 Problem List Condition Confirmation Course Effective Dates Status H ealth Status Informant Asthma 1, 2 Confirmed Active Binge-eating disorder, moderate Confirmed Active Screening for cervical cancer 3, 4 Confirmed Active Carpal tunnel syndrome 5 Confirmed Active Diabetes mellitus - adult onset Confirmed Active Diabetic neuropathy Confirmed Active Dysthymia Confirmed Active Hx of vertigo Confirmed Active Herpes labialis Confirmed Active S/P laparoscopic sleeve gastrectomy 6 Confirmed Active Hyperlipidemia Confirmed Active Right knee pain 7 Confirmed Active Low back pain 8, 9, 10 Confirmed Active Microalbuminuria 11 Confirmed Active Morbid Obesity Confirmed Active Non-proliferative diabetic retinopathy 12 Confirmed Active Severe obesity (BMI 35.0-39.9) with comorbidity Confirmed Active Bilateral shoulder pain 13, 14 Confirmed Active Steatohepatitis 15, 16, 17 Confirmed Active 1-only uses albuterol when associated with URI 2Normal spirometry. Lung volumes are normal. Diffusing capacity is mildly reduced. 3-negative January 2023 4-Nov 17-2016. Due in 5 years=Nov 2021 5On the left (using splint). Had surgery on the right 6Dec 2023 7MRI: : 1. Diminutive and slightly lax contour of the ACL, suggestive of a chronic partial tear. 2. Focal free margin truncation in the posterior third of the medial meniscus near its posterior tibial attachment, likely free margin radial tear. 3. Mild medial compartment degenerative change. ----- 8-improved with one injection at [facility], after being evaluated by ortho ([facility]) 9MRI January 2017- Degenerative changes at the L4-L5 level with development of left lateral recess stenosis and crowding of the traversing left L5 nerve root and increased mild to moderate left neural foraminal stenosis. 10-Minimal retrolisthesis of L3-L4, and L4-L5. 11-history of microalbuminuria 12-OD 13- Coarse calcification adjacent to the humeral head, suggestive of calcific tendinopathy. 14-has followed with the AT[facility], and has improved with cortisone shots 15-[place]en again in [place] 2023 16CT scan: Hepatosplenomegaly and hepatic steatosis (09-27-2011). 17Abd [place] (02/16/2011) - Fatty infiltration of the liver is seen. The examination is otherwise unremarkable. Vital Signs Most recent to oldest [Reference Range]: 1 Height 157 cm (12/09/24 11:33 AM) Oxygen Saturation [94-100 %] 100 % (12/09/24 11:33 AM) Pulse Rate [55-90 bpm] 76 bpm (12/09/24 11:33 AM) Blood Pressure [90-138/55-84 mm Hg] 141/ 70mm Hg *H* (12/09/24 11:33 AM) Respiratory Rate [16-30 br/min] 18 br/mi n (12/09/24 11:33 AM) Temperature [96.8-100.4 DegF] 96.6 DegF *L* (12/09/24 11:33 AM) Mode of Delivery (Oxygen) Room air (12/09/24 11:33 AM) Blood pressure sites Arm, right (12/09/24 11:33 AM) Temperature Route Temporal (12/09/24 11: AM) Social History Social History Type Response Smoking Status Never (less than 100 in lifetime) entered on: 02/14/23 Sex Sex Representation Female (finding) Note * Arti Mays: PERFORM Event Display: Patient Education/Instruction Authored Date: [id number] Ambulatory Adult Visit Summary [facility] [address] [place] [address] Name: CARYN MCDONOUGH : 1975?? Visit: 12/09/2024 11:14?? Ambulatory Visit Instructions ?? Your Care Team Primary Care Provider Adrienne Downey MD? This Visit Provider [facility] Vitals Signs Temperature:??96.6 DegF??Low Height: 157 cm Pulse Rate: 76 bpm ?? Respiratory Rate: 18 br/min ?? Systolic Blood Pressure:??141 mm Hg??High ?? Diastolic Blood Pressure: 70 mm Hg ?? Oxygen Saturation: 100 % ?? What to do next Scheduled Follow-Up Appointments Sunday 2:00 PM EDT ?? With: Ricardo SHANE, Sally Spain Where: [facility] [address] [place] [address]- Status: Pending Sunday 10:20 AM EDT ?? Where: [address] [place] [address]- Status: Pending Medications The list below reflects the information in our records and provided by you today along with any changes made during this visit. Please continue your medications until treatment is completed or stopped by your provider. If this is different from the information you have or there are other questions,please contact the prescribing provider. What How Much When Instructions New Pimecrolimus Topical (Elidel 1% topical cream) 1 isabel Topically Twice a day Duration: 7 Days Apply sparingly on rash under your eyes 2 times a day ?? Pickup at [facility] #[id number] New PredniSONE (predniSONE 20 mg oral tablet) See instructions 3 tablets for 3 days, then 2 tablets for 3 days thyen 1 tablet for 3 days ?? Pickup at [facility] #[id number] Unchanged Acetaminophen (Tylenol Extra Strength 500 mg oral tablet) 2 tab(s) Oral 3 times a day as needed for as needed for headaches/body aches Unchanged Al Hydroxide/ Mg Hydroxide/ Simethicone (Helen-Lanta oral suspension) 10 Milliliter Oral 3 times a day after meals and bedtime as needed for nausea+ bloating Duration: 10 Days Unchanged Albuterol (Ventolin HFA 108 mcg/ inh inhalation aerosol with adapter) 2 puff(s) Inhalation Every 6 hours as needed for NEEDED FOR WHEEZING OR SHORTNESS OF BREATH Unchanged Atorvastatin (atorvastatin 20 mg oral tablet) 1 tab(s) Oral Daily FOR CHOLESTEROL AND TO PROTECT HEART.; 90 DAY SUPPLY; FRENCH ?? Unchanged Durable Medical Equipment (Alcohol Wipes) See instructions use as didrected when checkin blood sugar ??E11.9 ?? Unchanged Durable Medical Equipment (Pen [place], 31 G x 5 mm BD Ultra Fine III) See instructions Duration: 30 Days use as directed for Type 2 Diabetes Mellitus to use once daily with lantus ?? Unchanged Gabapentin (gabapentin 600 mg oral tablet) 1 tab(s) Oral Daily at Bedtime Unchanged Glucagon (Baqsimi One Pack 3 mg nasal powder) 3 Milligram Nares, Both Once Unchanged Insulin Glargine (Lantus Solostar Pen 100 units/ mL subcutaneous solution) 10 unit(s) Subcutaneous Injection Daily at Bedtime Unchanged Lisinopril (lisinopril 2.5 mg oral tablet) See instructions TAKE 1 TABLET BY MOUTH DAILY ?? Unchanged Loratadine (loratadine 10 mg oral tablet) 1 tab(s) Oral Daily as needed for NEEDED FOR ALLERGY SYMPTOMS Unchanged Miscellaneous Rx (CTS splint- Left) See instructions dx: G56.00 ?? Unchanged Miscellaneous Rx (Dexcom 7 Sensor) See instructions to check BG 4 times per day change eery 10 days dx: E11.65 ?? Unchanged PEG Electrolyte Solution (NuLYTELY [place] oral powder for reconstitution) See instructions as directed by office ?? Pharmacy Information [facility] #[id number]: [address], [place] [id number] [phone] Medications and Immunizations Administered Medications Given During Visit No medications given during this visit.?? Allergies (NKA means No Known Allergies) Latex??(ITCH) HumaLOG??(Rash) Ozempic (0.25 mg or 0.5 mg dose)??(pain) Trulicity Pen??(rash) aspirin??(eye swelling) metFORMIN??(abdominal pain) penicillin??(rash and itching) Common Emergency Awareness Tips IS IT A STROKE? Act FAST and Check for these signs: FACE Does the face look uneven? ARM Does one arm drift down? SPEECH Does their speech sound strange? TIME Call at any sign of stroke ?? Heart Attack Signs Chest discomfort: Most heart attacks involve discomfort in the center of the chest and lasts more than a few minutes, or goes away and comes back. It can feel like uncomfortable pressure, squeezing, fullness or pain. Discomfort in upper body: Symptoms can include pain or discomfort in one or both arms, back, neck, jaw or stomach. Shortness of breath: With or without discomfort. Other signs: Breaking out in a cold sweat, nausea, or lightheaded. Remember, MINUTES DO MATTER. If you experience any of these heart attack warning signs, call to get immediate medical attention! ?? Smoking can increase your chances of developing chronic health problems and can cause harmful effects to other family members in your house. If you smoke, you are strongly encouraged to quit. Please call [employer] at [phone] or 4-273-961orat.io ([phone]) or log in to [email or web address] for referrals to smoking cessation programs. ?? The National Suicide Prevention Hotline is available 23/04 if you or someone you know needs to find a reason to keep living. By calling 7-972-226-rkun (4985) you'll be connected to a skilled, trained counselor at a crisis center in your area. [facility] You can view and manage your care through the patient portal or by using a health care isabel of your choosing. [employer] is a website that allows you to securely view your medical information including your hospital discharge summary, office visit summaries, medications and follow-up visits. You can also request appointments, renew medications, and request access to your medical information using a health care isabel of your choosing, or just ask a question. You can enroll at [email or web address] or register during your next office visit. [facility], in keeping with [facility] guidance, no longer requires face masks for staff, patientsor visitors in most situations. Similiar to time spent indoors at other locations, there is the chance that you were exposed to repiratory viruses during your time with us (such as flu or COVID-19). If you develop symptoms concerning for a viral respiratory infection, please seek testing (and treatment if indicated) from your medical provider or home test kit. ?? Disclaimer: The information provided is of a general nature and is intended to be used in conjunction with the recommendations and advice of your health care practitioner. Every effort has been made to ensure that the information provided is accurate and complete at the time it is provided to you however, as your needs change, or, as new information becomes available, different or additional instructions may be required. ?? If you have questions, please consult with your primary care provider or pharmacist, as appropriate. This information is not intended to serve as substitution for assessment and evaluation by a qualified health care provider. If you do not have a primary care provider, you may find a [facility] provider by calling [facility] at [phone]. Patient Care team information Care Team Personnel Name: Adrienne Downey MD Position: S Physician - Primary Care Member Role: PCP Address: [address] [place] [id number] Telecom: Care Team Related Persons Name: IVIS BAEZA Name: TOO MCDONOUGH Insurance Providers Guarantor name: CARYN MCDONOUGH Health Plan Information #: 1 Payer: [facility] Member Number: [id number] Policy Number: NA Group Number: [id number] Health Plan Information #: 2 Payer: [facility] Member Number: [id number] Policy Number: NA Group Number: NA
--- OUTSIDE RECORDS SUMMARY | 2024-12-18 09:34 | XMS_ITS | Continuity of Care Document ---
Author Organization [facility] Address [address] [place] [address]- Care Team Providers Care Dairy Manufacturing Technologist Name Role Phone Nasreen SHANE, Adrienne Primary Care Physician [place] [facility] [place]17/24 - 12/17/24 [facility] [address] [place] [address]- Encounter Type: Triage Allergies, Adverse Reactions, Alerts [...] 04/25/2011 6Admin Note: VIS GIVEN 7Result Comment: [facility] [id number] 8Admin Note: VIS 07-06-09 9Admin Note: vis given vis date 12/04--A 10Admin Note: vis given 11Admin Note: VIS given in Kosovan Medications Alcohol Wipes See Instructions, # 1 box, Refills 3, Tot. Refills 3, Maintenance, use as didrected when checkin blood sugar E11.9, 05/23/17 9:51:21 AM EDT, Compound Start Date: 05/23/17 Status: Ordered Quantity: 1.0 Unit: box Repeat number: 4 atorvastatin 20 mg oral tablet 1 tablet, By Mouth, Daily, FOR CHOLESTEROL AND TO PROTECT HEART.; 90 DAY SUPPLY; SAUDI ARAB[place], # 90 tablet, 3 Refills, Maintenance, 12/31/23 2:15:00 PM EDT, [facility] #[id number], 157, cm, 12/31/23 13:49:00 EDT, Height, 119, kg, 12/31/23 13:49:00 EDT, Dry Weight Start Date: 12/31/23 Status: Ordered Quantity: 90.0 Unit: tablet Repeat number: 4 Baqsimi One Pack 3 mg nasal powder = 3 mg, Nares, Both, Once, # 1 each, 0 Refills, Soft Stop, 06/03/24 2:45:00 PM EDT, [facility] #[id number], Partial fill upon patient request if the [...] 3 Refills, Maintenance, 12/31/23 2:15:00 PM EDT, [facility] #[id number], 157, cm, 12/31/23 13:49:00 EDT, Height, 119, kg, 12/31/23 13:49:00 EDT, Dry Weight Start Date: 12/31/23 Status: Ordered Quantity: 90.0 Unit: tablet Repeat number: 4 Lantus Solostar Pen 100 units/mL subcutaneous solution = 10 units, Subcutaneous Injection, Daily at bedtime, # 10 mL, 0 Refills, Maintenance, 12/01/24 4:03:00 PM EST, Solution, [facility] #[id number], Partial fill upon patient request if the [...] Replace Required Details, Route to Pharmacy Electronically, [facility] #[id number], 157, cm, 12/01/24 15:02:00 EST, Height, 96.454, kg, 12/01/24 15:02:00 EST, Dry Weight Start Date: 12/09/24 Status: Ordered Quantity: 90.0 Unit: tablet Repeat number: 2 loratadine 10 mg oral tablet 1, tablet, By Mouth, Daily, PRN, # 90 tablet, Refills 3, Tot. Refills 3, Maintenance, NEEDED FORALLERGY SYMPTOMS, 12/01/24 4:09:00 PM EST, Route to Pharmacy Electronically, [facility] #[id number], 157, cm, 12/01/24 15:02:00 EST, Height, 96.454, kg, 12/01/24 15:02:00 EST, Dry Weight Start Date: 12/01/24 Status: Ordered Quantity: 90.0 Unit: tablet Repeat number: 4 NuLYTELY [place] oral powder for reconstitution See Instructions, as directed by office, # 1 each, 0 Refills, Maintenance, 03/12/24 12:55:00 PM EDT,REC Powder, [facility] #[id number], ok to sub for any gallon prep, 157, cm, 03/12/24 12:33:00 EDT, Height, 118.18, kg, 01/28/24 15:42:00 EDT, Dry Weight Start Date: 03/12/24 Status: Ordered Quantity: 1.0 Unit: each Repeat number: 1 Pen [place], 31 G x 5 mm BD Ultra Fine III See Instructions, # 30 each, Refills 6, Tot. Refills 6, Maintenance, use as directed for Type 2 Diabetes Mellitus to use once daily with lantus, 12/01/24 4:04:00 PM EST, Supply, 157, cm, 12/01/24 [...] PM EDT, 12/09/24 12:03:00 PM EDT, Tablet, [facility] #[id number], Partial fill upon patient request if the [...] Refills, Maintenance, 10/10/22 7:43:00 PM EST, Tablet, [facility] #[id number], Partial fill upon patient request if the [...] 0 Refills, Maintenance, 01/24/24 12:36:00 PM EDT, [facility] #[id number], 157, cm, 12/31/23 13:49:00 EDT, Height, 119, [...] is mildly reduced. 3-negative January 2023 4-Nov 17. Due in 5 years=Nov 2021 5On the [...] change. ----- 8-improved with one injection at [facility], after being evaluated by ortho ([facility]) 9MRI [...] Team Personnel Name: Adrienne Downey MD Position: [facility] Physician - Primary Care Member Role: PCP Address: [address] [place] [address]- Telecom: Care Team Related Persons Name: IVIS BAEZA Name: TOO MCDONOUGH Insurance Providers Guarantor name: CARYN SHARONDA [facility] Plan Information #: 1 Payer: [facility] Member Number: NA Policy Number: NA Group Number: NA
== END 2024-12-18 10:03 | disposition home or self-care (01) ==
LOC: HO.HBS 09:03
PROVIDERS: PCP Internal Medicine; Visit Provider Physician Assistant Surgical
DX: Z98.84 Bariatric surgery status (principal); R11.0 Nausea
CPT/HCPCS: 99024

== ENCOUNTER → 2024-12-18 09:02 | Outpatient (BNVA) | payer OTHER, SELFPAY | PROVIDERS: PCP Internal Medicine; Visit Provider Physician Assistant Surgical | DX: R11.0 Nausea (principal); Z98.84 Bariatric surgery status | CPT/HCPCS: 99212 ==

== ENCOUNTER 2025-07-23 14:45 | Outpatient (AMB) | payer OTHER, SELFPAY ==
--- NOTE | 2025-07-23 14:35 | MHC.OFFVISWM ---
VS Expanded 07/23/25 14:40 Height 5 ft 1.5 in Weight 190 lb BMI 35.3 Intake Visit Reasons: TV PO LSG 09/19/24 Hydroponics Worker Required: Yes Hydroponics Worker Name: Renae [email or web address] Information Interpreted: clinical only Allergies aspirin Allergy (Intermediate, Verified 12/18/24 09:30) Swelling latex Allergy (Intermediate, Verified 12/18/24 09:30) Rash Penicillins Allergy (Intermediate, Verified 12/18/24 09:30) Swelling dulaglutide (From Trulicity) Adverse Reaction (Intermediate, Verified 12/18/24 09:30) Itching insulin lispro (From Humalog U-100 Insulin) Adverse Reaction (Intermediate, Verified 12/18/24 09:30) Rash metformin Adverse Reaction (Intermediate, Verified 12/18/24 09:30) Gastrointestinal Upset Medication List - Last Reconciled 07/23/25 by ERNESTINE Negro atorvastatin 20 mg PO DAILY docusate sodium (Colace) 100 mg PO BID 90 days fluoxetine 10 mg PO DAILY gabapentin 600 mg PO BEDTIME insulin pump cart,cont inf,BT (Omnipod Dash Pods (Gen 4) subcutaneous cartridge) As directed lisinopril 2.5 mg PO DAILY loratadine (Allergy Relief (loratadine)) 10 mg PO DAILY lorazepam 0.5 mg PO DAILY PRN HPI Comments Details: This?is a?50?yo F who is s/p LSG 09/19/2024. Presents for 10 month post op visit. Weight loss of 10.8lb since last OV in November 2024.? She complains of weight plateau and increasing hunger. Present meal plan includes: isopure 1 in 8 oz of water at 9-11, 1-3, 5-7 - given at last office visit pt reports she has been doing 2 shakes for breakfast and lunch, a meal for dinner, and a shake after dinner; her meal is meat, reports that she is taking in twenty forkfuls of meat, occasional vegetables likes Phillips protein bars Exercise routine includes: [employer], 5 x per week, [address], walking on the treadmill and stationary bike [facility] Medical History Depression Hypertension Hyperlipidemia Neuropathy Right sciatic nerve pain FLORENCIA (obstructive sleep apnea) Asthma Type 2 diabetes mellitus Morbid obesity Surgical History S/P laparoscopic sleeve gastrectomy History of esophagogastroduodenoscopy (EGD) Hx of nasal septoplasty Hx of section Family History Father Multiple sclerosis Mother Diabetes mellitus Sister Lupus Brother No problems noted. Daughter No problems noted. Social History Household Members: Children Housing: Apartment Are you a primary group care worker to a significant other at home: No Do you presently have visiting nurse or other home services: No Alcohol intake: never Patient Tobacco Use Status: Never used Tobacco Telehealth Telehealth Telehealth Platform: Telephone Location of provider rendering services: other Location of patient: address on file Patient Identification confirmed using: Name, : Yes Telehealth method: voice only Patient verbally consented to treatment: Yes Patient verbally consented to billing insurance company: Yes Patient informed of any privacy concerns related to visit: Yes Minutes spent on Phone/Video with Pt.: 16 Assessment & Plan Assessment & Plan (1) S/P laparoscopic sleeve gastrectomy: Code(s): Z98.84 - Bariatric surgery status Category: Surgical (2) Obesity: Code(s): E66.9 - Obesity, unspecified Category: Medical Plan New meal plan: 9-11 shake half scoop Isopure 1-3 bar (Phillips 20g) 4-6 shake half scoop Isopure 7pm meal- 8 forks protein, up to 8 forks salad or vegetables (discussed the importance of not taking more than 16 forks total per meal) 9-11 shake half scoop, or half bar I asked pt to text me next week to let me know how she is doing on this plan. Labs ordered. RTC 4 months but encouraged pt to check in with me if there is anything she does not like about the meal plan. Orders: Orders TSH reflex Free T4 Today Z98.84 - Bariatric surgery status Vitamin A Today Z98.84 - Bariatric surgery status Vitamin B1 Today Z98.84 - Bariatric surgery status C Reactive Protein Today Z98.84 - Bariatric surgery status Comprehensive Met. Panel Today Z98.84 - Bariatric surgery status IRON PROFILE Today Z98.84 - Bariatric surgery status Complete Blood Count Auto Diff Today Z98.84 - Bariatric surgery status Ferritin Today Z98.84 - Bariatric surgery status Vitamin D 25-OH Total Today Z98.84 - Bariatric surgery status Lipid Panel Today Z98.84 - Bariatric surgery status Zinc Today Z98.84 - Bariatric surgery status Vitamin B12 and Folate Today Z98.84 - Bariatric surgery status Insulin Today Z98.84 - Bariatric surgery status Hemoglobin A1c Today Z98.84 - Bariatric surgery status
[2025-07-23 14:40] VITALS: BMI 35.3
== END 2025-07-23 15:03 | disposition home or self-care (01) ==
LOC: HO.HBS 14:45
PROVIDERS: PCP Internal Medicine; Visit Provider Physician Assistant Surgical
DX: E66.9 Obesity, unspecified (principal); Z68.35 Body mass index [BMI] 35.0-35.9, adult; Z90.3 Acquired absence of stomach [part of]; Z98.84 Bariatric surgery status
CPT/HCPCS: 98013

== ENCOUNTER 2025-07-31 10:12 | Outpatient (REF) | payer OTHER, SELFPAY ==
[2025-07-31 10:32] LABS: MANUAL DIFF FLAG NO
[2025-07-31 10:47] LABS: Hematocrit 40.1 % (37.0-47.0); Hemoglobin 13.0 g/dl (12.0-16.0); Imm Gran Abs Auto 0.02 X10*3/uL (0.00-0.03); Imm Gran Pct Auto 0.3 % (0.0-0.4); Lymphocytes Absolute Auto 1.8 X10*3/uL (1.2-4.9); Mean Corpuscular HGB Conc 32.4 g/dl (31.0-35.0); Mean Corpuscular Hemoglobin 27.5 pg (27.0-33.0); Mean Corpuscular Volume 85.0 fL (80.0-98.0); NRBC Abs Auto 0.000 X10*3/uL (0.0-0.012); NRBC Pct Auto 0.0 /100WBC (0.0-0.2); Platelet Count 274 X10*3/uL (160-400); Red Blood Count 4.72 X10*6/uL (4.20-5.50); White Blood Count 6.9 X10*3/uL (4.8-10.8)
[2025-07-31 11:27] LABS: Alanine Aminotransferase 23 U/L (0-31); Albumin Level 4.1 g/dL (3.5-5.0); Alkaline Phosphatase 81 U/L (39-117); Anion Gap 11 (12-20); Aspartate Amino Transferase 26 U/L (5-31); Blood Urea Nitrogen 11 mg/dL (9-16); Calcium 8.7 mg/dL (8.4-10.2); Carbon Dioxide 26 mmol/L (22-29); Chloride 106 mmol/L (96-108); Cholesterol 200 mg/dL (<200); Estimated Glomerular Filt Rate > 60; HDL Cholesterol 42 mg/dL (>40); Iron 93 mcg/dL (30-160); Percent Iron Saturation 30 % (15-50); Potassium 4.0 mmol/L (3.3-5.1); Sodium 139 mmol/L (135-145); Total Iron Binding Capacity 314 mcg/dL (228-428); Total Protein 7.4 g/dL (6.5-8.0); Triglycerides 142 mg/dL (<150); Unsaturated Iron Binding 221 ug/dL
[2025-07-31 11:48] LABS: Ferritin 26 ng/mL (10-250)
[2025-07-31 12:00] LABS: Folate 10.2 ng/mL (> or = 4.0); Vitamin B12 574 pg/mL (200-900)
== END 2025-07-31 10:13 | disposition home or self-care (01) ==
LOC: HO.LAB 10:12
PROVIDERS: PCP Internal Medicine; Visit Provider Physician Assistant Surgical
DX: Z98.84 Bariatric surgery status (principal)
CPT/HCPCS: 36415; 80053; 80061; 82306; 82607; 82728; 82746; 83036; 83525; 83540; 84425; 84443; 84590; 84630; 85025; 86140